=== PATIENT | male | born 1985 | race African-American/Black ===

== ENCOUNTER 2018-01-12 14:18 | Emergency (ER) | payer OTHER ==
[~2018-01-12] VITALS: Ht 188 cm; Wt 98.0 kg
[2018-01-12] MEDS ORDERED: ONDANSETRON HCL 4 MG ORAL DISINTEGRATING TAB SL ONE (14:45)
[2018-01-12] MEDS ORDERED: OMEPRAZOLE40 MG PO (15:33)
[2018-01-12] MEDS ORDERED: LOSARTAN-HCTZ1 EAC1 PO (15:33)
[2018-01-12] MEDS ORDERED: ZOFRAN ODT4 MG SL (15:33)
[2018-01-12] MEDS ORDERED: SIMETHICONE80 MG PO (15:34)
[2018-01-12 15:45] VITALS: BP 198/116
== END 2018-01-12 15:47 | disposition home or self-care (01) ==
LOC: FSED 14:18
DX: K52.29 Other allergic and dietetic gastroenteritis and colitis (principal); K21.9 Gastro-esophageal reflux disease without esophagitis; I10 Essential (primary) hypertension; D64.0 Hereditary sideroblastic anemia; D50.9 Iron deficiency anemia, unspecified; D62 Acute posthemorrhagic anemia
CPT/HCPCS: 80053; 85025; 99283

== ENCOUNTER 2018-03-11 20:01 | Emergency (ER) | payer OTHER ==
[~2018-03-11] VITALS: Ht 188 cm; Wt 99.8 kg
[~2018-03-11 20:01] MED LIST: LOSARTAN-HCTZ1 EAC1 PO; OMEPRAZOLE40 MG PO; SIMETHICONE80 MG PO; ZOFRAN ODT4 MG SL
--- OUTSIDE RECORDS SUMMARY | 2018-03-11 20:04 | XMS REPORT | Clinical Summary ---
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 Disp. Refills Start End Date Status Date orphenadrine (NORFLEX) Take 1 tablet (100 mg 30 tablet 0 08/16/19 Active 100 mg 12 hr tablet total) by mouth 2 (two) 17 times a day as needed for muscle spasms for up to 30 doses. Active Problems Not on file Social History Tobacco Use Types Packs/Day Years Used Date Never Smoker Alcohol Use Drinks/Week oz/Week Comments Yes 6 days/wk// occasional Sex Assigned at Date Recorded Not on file Last Filed Vital Signs Not on file Plan of Treatment Health Maintenance Due Date Last Done Comments INFLUENZA VACCINE 12/02/2017 Results Not on fileafter 03/10/2017 Insurance Payer Benefit Subscriber ID Type Phone Address Plan / Group UHC MEDICAID [employer] xxxxxxxxx HMO COMM [employer]+ [facility] MEDICAID MEDICAID xxxxxxxxx Medicaid MASON MCNALLY Third Self 1985 Home: [address] [place], [place] Liability [id number]
--- OUTSIDE RECORDS SUMMARY | 2018-03-11 20:04 | XMS REPORT | Clinical Summary ---
Author Author JESSY 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 Active traMADol (ULTRAM) 50 mg Take 1 tablet 15 tablet 0 tablet (50 mg total) 7 by mouth every 8 (eight) hours as needed for Pain. Max Daily Amount: 150 mg 09/08/2017 esomeprazole (NEXIUM) 40 Take 1 30 capsule 0 MG capsule capsule (40 7 mg total) by mouth daily. Active Problems Not on file Social History Date Tobacco Use Types Packs/Day Years Used Never Assessed Sex Assigned at Date Recorded Not on file Industry Job Start Date Occupation Not on file Not on file Not on file Travel End Travel History Travel Start No recent travel history available. Last Filed Vital Signs Not on file Plan of Treatment Care Team Description Date Type Specialty Willie Tenorio MD [facility] [address] [address] [phone] 03/16/2018 Office Visit General Surgery Results Not on fileafter 03/10/2017 Insurance Payer Benefit Subscriber ID Type Phone Address Plan / Group MEDICAID - MEDICAID [facility] xxxxxxxxx Medicaid CARE [employer] Contracted PLAN
--- OUTSIDE RECORDS SUMMARY | 2018-03-11 20:05 | XMS REPORT | CCD ---
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 Role Phone Rick Aquino CP Allergies, Adverse Reactions, Alerts Substance Reaction Status NKDA Active Problem List Condition Effective Dates Status Chest pain Active Hypertension Active Medications Medication Instructions Start Date End Date Status morphine Sulfate 4 mg, 2 mL, Route: IVP, Drug form: 09/09/2011 09/09/2011 Completed INJ, ONCE, Priority: STAT, Start date: 09/09/11 13:14:00, Stop date: 09/09/11 13:14:00 ondansetron 4 mg, 2 mL, Route: IVP, Drug form: 09/09/2011 09/09/2011 Completed INJ, ONCE, Priority: STAT, Start date: 09/09/11 13:14:00, Stop date: 09/09/11 13:14:00 NS (Bolus) IV 1,000 1,000 mL, Rate: 1,000 ml/hr, Infuse 09/09/2011 09/09/2011 Completed mL over: 1 hr, Route: IV, Dosing Weight 85.909 kg, Total Volume: 1,000, Priority: STAT, Start date: 09/09/11 12:48:00, Duration: 1 doses or times, Stop date: 09/09/11 13:47:00, Bolus Dose Bolus Dose clonidine 0.1 mg, Route: PO, Drug form: TAB, 09/09/2011 09/09/2011 Completed ONCE, Priority: STAT, Start date: 09/09/11 15:08:00, Stop date: 09/09/11 15:08:00 hydrALAZINE 20 mg, 1 mL, Route: IVP, Drug form: 09/09/2011 09/09/2011 Ordered INJ, ONCE, Priority: STAT, Start date: 09/09/11 15:57:00, Stop date: 09/09/11 15:57:00 clonidine 0.1 mg, Route: PO, Drug form: TAB, 09/09/2011 09/09/2011 Discontinued ONCE, Priority: STAT, Start date: 09/09/11 15:14:00, Stop date: 09/09/11 15:14:00 [place] 5/325 oral 1-2 tab, PO, Q6H, PRN, 30 tab, 09/09/2011 09/14/2011 Ordered tablet Pain, Substitution Allowed, Maintenance Zegerid OTC oral See Instructions, 30 doses or 09/09/2011 Ordered capsule times, Substitution Allowed, Maintenance, PO Daily PO Daily Zantac 150 oral 150 mg, 1 tab, PO, BID, 30 tab, 09/09/2011 Ordered tablet Substitution Allowed Carafate 1 g/10 mL 1 gm, 10 ml, PO, Before Meals & 09/09/2011 Ordered oral suspension Bedtime, 200 ml, Substitution Allowed clonidine 0.1 mg, 1 tab, Route: PO, Drug 09/09/2011 09/09/2011 Completed form: TAB, ONCE, Priority: STAT, Start date: 09/09/11 14:22:00, Stop date: 09/09/11 14:22:00 Carafate 1 g/10 mL 1 gm, 10 mL, Route: PO, Drug form: 09/09/2011 09/09/2011 Completed oral suspension SUSP, ONCE, Start date: 09/09/11 12:29:00, Stop date: 09/09/11 12:29:00 Saline Flush 0.9% 5 ml, Route: IVP, Drug Form: INJ, 09/09/2011 09/09/2011 Discontinued PRN, PRN Line Flush, Start date: 09/09/11 12:29:00, Duration: 30 day, Stop date: 10/09/11 12:28:00 Vital Signs Most recent to oldest [Reference Range]: 1 Height 187.96 cm (09/09/2011 11:27:00) Weight 85.909 kg (09/09/2011 11:27:00) Results CHEMISTRY Most recent to oldest [Reference Range]: 1 Sodium Lvl [135-145 mEq/L] 140 mEq/L (09/09/2011 12:47:00) Potassium Lvl [3.5-5.1 mEq/L] 3.9 mEq/L (09/09/2011 12:47:00) Chloride Lvl [95-109 mEq/L] 105 mEq/L (09/09/2011 12:47:00) CO2 [24-32 mEq/L] 31 mEq/L (09/09/2011 12:47:00) AGAP [10.0-20.0 mEq/L] 7.9 mEq/L *LOW* (09/09/2011 12:47:00) Creatinine Lvl [0.5-1.4 mg/dL] 1.0 mg/dL (09/09/2011 12:47:00) BUN [7-22 mg/dL] 12 mg/dL (09/09/2011 12:47:00) B/C Ratio [6-25] 12 (09/09/2011 12:47:00) Glucose Lvl [70-99 mg/dL] 54 mg/dL 1 *LOW* (09/09/2011 12:47:00) Total Protein [6.4-8.4 g/dL] 8.3 g/dL (09/09/2011 12:47:00) Albumin Lvl [3.5-5.0 g/dL] 4.5 g/dL (09/09/2011 12:47:00) Globulin [2.0-4.0 g/dL] 3.8 g/dL (09/09/2011:47:00) A/G Ratio [0.7-1.6] 1.2 (09/09/2011 12:47:00) Calcium Lvl [8.5-10.5 mg/dL] 9.0 mg/dL (09/09/2011 12:47:00) ALT [0-65 U/L] 26 U/L (09/09/2011 12:47:00) AST [0-37 U/L] 17 U/L (09/09/2011 12:47:00) Alk Phos [39-136 U/L] 47 U/L (09/09/2011 12:47:00) Bili Total [0.2-1.3 mg/dL] 0.6 mg/dL (09/09/2011 12:47:00) Total CK [12-191 U/L] 323 U/L *HI* (09/09/2011 12:47:00) CK MB [0.5-3.6 ng/mL] 1.6 ng/mL (09/09/2011:47:00) CK MB Index [0.0-2.5] 0.5 (09/09/2011:47:00) Troponin-I [0.00-0.40 ng/mL] <0.02 ng/mL (09/09/2011 12:47:00) 1Interpretive Data: Adult reference range values reflect the clinical guidelinesof the [place] [employer]. HEMATOLOGY Most recent to oldest [Reference Range]: 1 WBC [3.7-10.4 K/CMM] 4.9 K/CMM (09/09/2011:47:00) RBC [4.70-6.10 M/CMM] 5.23 M/CMM (09/09/2011 12:47:00) Hgb [14.0-18.0 g/dL] 14.4 g/dL (09/09/2011:47:00) Hct [42.0-54.0 %] 43.4 % (09/09/2011 12:47:00) MCV [80.0-94.0 fL] 83.0 fL (09/09/2011:47:00) MCH [27.0-31.0 pg] 27.5 pg (09/09/2011:47:00) MCHC [32.0-36.0 g/dL] 33.2 g/dL (09/09/2011:47:00) RDW [11.5-14.5 %] 12.5 % (09/09/2011:47:00) Platelet [133-450 K/CMM] 328 K/CMM (09/09/2011:47:00) MPV [7.4-10.4 fL] 7.9 fL (09/09/2011:47:00) Segs [45.0-75.0 %] 57.2 % (09/09/2011:47:00) Lymphocytes [20.0-40.0 %] 31.2 % (09/09/2011:47:00) Monocytes [2.0-12.0 %] 4.7 % (09/09/2011 12:47:00) Eosinophils [0.0-4.0 %] 6.4 % *HI* (09/09/2011 12:47:00) Basophils [0.0-1.0 %] 0.5 % (09/09/2011 12:47:00) Segs-Bands # [1.5-8.1 K/CMM] 2.8 K/CMM (09/09/2011 12:47:00) Lymphocytes # [1.0-5.5 K/CMM] 1.5 K/CMM (09/09/2011 12:47:00) Monocytes # [0.0-0.8 K/CMM] 0.2 K/CMM (09/09/2011 12:47:00) Eosinophils # [0.0-0.5 K/CMM] 0.3 K/CMM (09/09/2011 12:47:00) Basophils # [0.0-0.2 K/CMM] 0.0 K/CMM (09/09/2011 12:47:00) PT [12.0-14.7 seconds] 13.2 seconds (09/09/2011 12:47:00) INR [0.85-1.17] 1.00 2 (09/09/2011 12:47:00) D-Dimer 0.24 ug/mL FEU 3 *NA* (09/09/2011 12:47:00) PTT [22.9-35.8 seconds] 32.7 seconds 4 (09/09/2011 12:47:00) 2Interpretive Data: RECOMMENDED RANGES FOR PROTIME INR: 2.0-3.0 for most medical and surgical thromboembolic states. 2.5-3.5 for artificial heart valves and recurrent embolism.INR SHOULD BE USED ONLY FOR PATIENTS ON STABLE ANTICOAGULANT THERAPY. 3Interpretive Data: In DIC, quantitative D-Dimer is generally greater than 0.66 ug/mL FEU. Values of quantitative D-Dimer less than 0.40 ug/mL FEU have been reported to be associated with a low probability of deep vein thrombosis/pulmonary embolism. This test alone should not be used to rule out DVT/PE. 4Interpretive Data: Heparin Therapeutic Range: 57 - 92 Seconds
--- OUTSIDE RECORDS SUMMARY | 2018-03-11 20:05 | XMS REPORT | Continuity of Care Document ---
Author Author Tobias julita [facility] Interface Address Unknown Phone Unavailable Problems Problem Status Onset Date Classification Date Reported Comments Source CHEST/ BACK PAIN Active 09/14/2017 [facility] FLU LIKE SYMPTOMS Active 09/14/2017 [facility] CHEST PAIN Active 04/15/2014 [facility] [place] ABD PAIN Active 04/09/2014 [place] UNCONTROLLED HYPERTENSION Active 04/09/2014 [facility] HTN URGENCY, CHEST PAIN,ABDOMINAL PAIN Active 09/26/2013 [facility] CHEST PAIN/BLOOD IN STOOL Active 09/09/2011 [facility] 401.0 - MALIGNANT HYPER Active 03/20/2011 [facility] HYPERTENSIVE URGENCY Active 03/16/2011 [facility] Chest pain Active Problem 09/17/2017 [facility] Clostridium difficile<sup>1, 2</sup> Active Problem 09/17/2017 Problem added by Discern Expert. [facility], [place] HTN (<span ID="[id number]</span>) Active Problem 09/17/2017 [facility] [place] Hypertension Active Problem 09/17/2017 [facility] [place] Chest pain Active Problem 09/11/2011 [facility] Hypertension Active Problem 09/11/2011 [facility] HYPERTENSION NOS Active [facility] CHEST PAIN NOS Active [facility] ABDMNAL PAIN UNSPCF SITE Active [facility] Medications Medication Details Route Status Patient Instructions Ordering Provider Order Date Source benzonatate 100 MG Oral Capsule [Tessalon Perles] 100 mg=1 cap, PO, TID, X 7 day, # 21 cap, 0 Refill(s) Active 09/14/2017 [facility] Amlodipine 10 MG / Benazepril hydrochloride 40 MG Oral Capsule [Lotrel 10/40] 1 cap, PO, Daily, # 30 cap, 0 Refill(s) Active 04/10/2014 [facility] tramadol hydrochloride 50 MG Oral Tablet 50 mg=1 tab, PO, Q6H, Pain, # 30 tab, 0 Refill(s) Active 04/10/2014 [place] pantoprazole 40 mg oral enteric coated tablet 40 mg=1 tab, PO, Before Breakfast, # 30 tab, 0 Refill(s) Active 04/10/2014 [place] amLODIPine 10 mg oral tablet 10 mg=1 tab, PO, Daily, # 30 tab, 0 Refill(s) Active 04/10/2014 [place] lisinopril 40 mg oral tablet 40 mg=1 tab, PO, Daily, # 30 tab, 0 Refill(s) Active 04/10/2014 [place] Docusate 100 mg, 1 cap, Route: PO, Drug form: CAP, BID, Dosing Weight 91.818, kg, Start date: 04/10/14 9:00:00, Duration: 30 day, Stop date: 05/09/14 17:00:00Notes: (Same as: Colace) (Do Not Crush) Inactive 04/10/2014 [place] metoprolol extended release 25 mg, 1 tab, Route: PO, Drug form: ERTAB, Daily, Start date: 04/10/14 9:00:00, Duration: 30 day, Stop date: 05/09/14 9:00:00Notes: (Same as: Toprol XL) Do Not Crush Inactive 04/10/2014 [place] Protonix 40 mg, 1 tab, Route: PO, Drug form: ECTAB, Before Breakfast, Dosing Weight 91.818, kg, Start date: 04/10/14 7:30:00, Duration: 30 day, Stop date: 05/09/14 7:30:00Notes: Tablet should not be chewed or crushed. (Same as: Protonix) Inactive 04/10/2014 [place] Saline Flush 0.9% 10 ml, Route: IVP, Drug Form: INJ, Dosing Weight 91.818, kg, PRN, PRN Line Flush, Start date: 04/09/14 17:07:00, Duration: 30 day, Stop date: 05/09/14 17:06:00Notes: (Same as: BD Posiflush) No Longer Active 04/09/2014 [place] Ondansetron 4 mg, 2 mL, Route: IVP, Drug form: INJ, ONCE, Dosing Weight 91.818, kg, PRN Nausea & Vomiting, Start date: 04/09/14 17:07:00Notes: (Same as: Zofran) Inactive 04/09/2014 [facility] Morphine 2 mg, 1 mL, Route: IVP, Drug form: INJ, Q4H, Dosing Weight 91.818, kg, PRN Pain Score 4-6, Start date: 04/09/14 17:07:00, Duration: 30 day, Stop date: 05/09/14 17:06:00Notes: (Same as:MORPhine Sulfate) No Longer Active 04/09/2014 [place] Acetaminophen 325 MG / Hydrocodone Bitartrate 5 MG Oral Tablet 1 tab, Route: PO, Drug Form: TAB, Dosing Weight 91.818, kg, Q4H, PRN Pain Score 1-3, Start date: 04/09/14 17:07:00, Duration: 30 day, Stop date: 05/09/14 17:06:00Notes: (Same as: Monroe 325/5) Do not exceed 4gm/day of acetaminophen. No Longer Active 04/09/2014 [facility] Acetaminophen 650 mg, 2 tab, Route: PO, Drug form: TAB, Q4H, Dosing Weight 91.818, kg, PRN Pain 1-3/Temp > 100.4 F, Start date: 04/09/14 17:07:00, Duration: 30 day, Stop date: 05/09/14 17:06:00Notes: Do not exceed 4 gm/day. (Same as: Tylenol) No Longer Active 04/09/2014 [facility] Lisinopril 40 mg, 2 tab, Route: PO, Drug form: TAB, Daily, Dosing Weight 91.818, kg, Priority: NOW, Start date: 04/09/14 17:05:00, Duration: 30 day, Stop date: 05/09/14 9:00:00Notes: (Same as: Prinivil, Zestril) No Longer Active 04/09/2014 [facility] Amlodipine 10 mg, 2 tab, Route: PO, Drug form: TAB, Daily, Dosing Weight 91.818, kg, Priority: NOW, Start date: 04/09/14 17:04:00, Duration: 30 day, Stop date: 05/09/14 9:00:00Notes: (Same as: Norvasc) No Longer Active 04/09/2014 [place] Clonidine Hydrochloride 0.1 MG Oral Tablet 0.1 mg, 1 tab, Route: PO, Drug form: TAB, Q6H, Dosing Weight 91.818, kg, PRN See Nurse's Notes, Start date: 04/09/14 15:06:00, Duration: 30 day, Stop date: 05/09/14 15:05:00, for SBP>160 or DBP>95Notes: (Same As: Catapres) No Longer Active 04/09/2014 [place] Labetalol 20 mg, 4 mL, Route: IVP, Drug form: INJ, Q6H, Dosing Weight 91.818, kg, PRN See Nurse's Notes, Start date: 04/09/14 15:06:00, Duration: 30 day, Stop date: 05/09/14 15:05:00, for SBP >160 or DBP>95Notes: (Same as: Normodyne, Trandate) Push over 2 minutes Give bolus over 2-3 minutes. No Longer Active 04/09/2014 [place] Acetaminophen 650 mg, 2 tab, Route: PO, Drug form: TAB, Q4H, Dosing Weight 91.818, kg, PRN Pain 1-3/Temp > 100.4 F, Start date: 04/09/14 14:57:00, Duration: 30 day, Stop date: 05/09/14 14:56:00Notes: Do not exceed 4 gm/day. (Same as: Tylenol) No Longer Active 04/09/2014 [place] Sodium Chloride 0.154 MEQ/ML Injectable Solution 500 mL, 500 ml/hr, Infuse Over: 1 hr, Route: IV, ONCE, Priority: STAT, Dosing Weight 91.818 kg, Start date: 04/09/14 13:16:00, Duration: 1 doses or times, Stop date: 04/09/14 13:16:00 Inactive 04/09/2014 [place] Tylenol 1,000 mg, Route: PO, ONCE, Dosing Weight 91.818, kg, Start date: 04/09/14 12:13:00, Stop date: 04/09/14 12:13:00 Inactive 04/09/2014 [place] Hydralazine 20 mg, Route: IVP, ONCE, Dosing Weight 91.818, kg, Priority: STAT, Start date: 04/09/14 11:55:00, Stop date: 04/09/14 11:55:00 Inactive 04/09/2014 [place] Labetalol 20 mg, Route: IVP, Drug form: INJ, ONCE, Dosing Weight 91.818, kg, Priority: STAT, Start date: 04/09/14 10:23:00, Stop date: 04/09/14 10:23:00 Inactive 04/09/2014 [place] Omnipaque 300 150 mL, 600 ml/hr, Route: IV, Drug Form: SOLN, ONCE, Start date: 04/09/14 9:04:00, Stop date: 04/09/14 9:04:00Notes: (Same as:Omnipaque 300). No Longer Active 04/09/2014 [place] Vasotec 1.25 mg, Route: IV, ONCE, Dosing Weight 91.818, kg, Start date: 04/09/14 8:46:00, Stop date: 04/09/14 8:46:00 Inactive 04/09/2014 [place] Hydralazine 20 mg, Route: IVP, ONCE, Dosing Weight 91.818, kg, Priority: STAT, Start date: 04/09/14 7:52:00, Stop date: 04/09/14 7:52:00 Inactive 04/09/2014 [place] Morphine 4 mg, Route: IVP, ONCE, Dosing Weight 91.818, kg, Priority: STAT, Start date: 04/09/14 7:43:00, Stop date: 04/09/14 7:43:00 Inactive 04/09/2014 [place] Ondansetron 4 mg, Route: IVP, ONCE, Dosing Weight 91.818, kg, Priority: STAT, Start date: 04/09/14 7:43:00, Stop date: 04/09/14 7:43:00 Inactive 04/09/2014 [place] Saline Flush 0.9% 10 mL, Route: IVP, Drug Form: INJ, Dosing Weight 91.818, kg, PRN, PRN Line Flush, Start date: 04/09/14 7:43:00, Duration: 30 day, Stop date: 05/09/14 7:42:00Notes: (Same as: BD Posiflush) No Longer Active 04/09/2014 [place] Lisinopril 0 Refill(s) No Longer Active 04/09/2014 [facility] amLODIPine 5 mg oral tablet 10 mg=2 tab, PO, Daily, # 15 tab, 0 Refill(s) Active 09/28/2013 [facility] Aspirin 81 MG Enteric Coated Tablet 81 mg=1 tab, PO, Daily, # 15 tab, 0 Refill(s) Active 09/28/2013 [facility] tramadol hydrochloride 50 MG Oral Tablet [Ultram] 50 mg=1 tab, PO, Q4H, Pain, # 30 tab, 0 Refill(s) Active 09/28/2013 [facility] metoprolol tartrate 25 mg oral tablet 12.5 mg=0.5 tab, PO, Q12H, # 15 tab, 0 Refill(s) Active 09/28/2013 [facility] lisinopril 20 mg oral tablet 40 mg=2 tab, PO, Daily, # 15 tab, 0 Refill(s) Active 09/28/2013 [facility] Lactulose 10 gm, 15 ml, Route: PO, Drug Form: SYRP, Dosing Weight 81.818, kg, Daily, PRN Constipation, Start date: 09/28/13 13:28:00, Duration: 30 day, Stop date: 10/28/13 13:27:00Notes: (Same as:Chronulac) Inactive 09/28/2013 [facility] Prinivil 40 mg, 2 tab, Route: PO, Drug form: TAB, Daily, Start date: 09/28/13 9:00:00, Duration: 30 day, Stop date: 10/27/13 9:00:00Notes: (Same as: Prinivil, Zestril) Inactive 09/28/2013 [facility] Aspirin / Calcium Carbonate 325 mg, 1 tab, Route: PO, Drug form: TAB, Daily, Dosing Weight 81.818, kg, Start date: 09/27/13 19:59:00, Duration: 30 day, Stop date: 10/27/13 9:00:00Notes: Take with food. No Longer Active 09/28/2013 [facility] Ambien 5 mg, 1 tab, Route: PO, Drug form: TAB, Bedtime, Dosing Weight 81.818, kg, PRN as needed for sleep, Start date: 09/27/13 19:51:00, Duration: 30 day, Stop date: 10/27/13 19:50:00Notes: (Same As: Ambien) No Longer Active 09/28/2013 [facility] Senokot 8.6 mg, 1 tab, Route: PO, Drug form: TAB, Daily, Start date: 09/27/13 12:43:00, Duration: 30 day, Stop date: 10/27/13 9:00:00Notes: (Same as: Senokot) No Longer Active 09/27/2013 [facility] Norvasc 10 mg, 2 tab, Route: PO, Drug form: TAB, Daily, Start date: 09/27/13 9:44:00, Duration: 30 day, Stop date: 10/27/13 9:00:00Notes: (Same as: Norvasc) No Longer Active 09/27/2013 [facility] Nicardipine 40 mg, 200 mL, Rate: Titrate, Dosing Weight 81.818, kg, Route: IV, Total Volume: 200 mL, Start Date: 09/27/13 9:18:00, Duration: 30 day, Stop date: 10/27/13 9:17:00, Replace Every: 24 hrNotes: Same a s: Cardene Concentration: (0.2 mg /1 ml ) No Longer Active 09/27/2013 [facility] Amlodipine 10 MG / Benazepril hydrochloride 40 MG Oral Capsule [Lotrel 10/40] 1 cap, Route: PO, Dosing Weight 81.818, kg, Daily, Start date: 09/27/13 9:00:00, Duration: 30 day, Stop date: 10/26/13 9:00:00 Inactive 09/27/2013 [facility] sennosides, INTERMEDIATE 8.6 mg, 1 tab, Route: PO, Drug Form: TAB, Dosing Weight 81.818, kg, Daily, Start date: 09/27/13 9:00:00, Duration: 30 day, Stop date: 10/26/13 9:00:00Notes: (Same as: Senokot) Inactive 09/27/2013 [facility] Docusate Sodium 100 MG Oral Capsule [Colace] 100 mg, 1 cap, Route: PO, Drug form: CAP, BID, Dosing Weight 81.818, kg, Start date: 09/27/13 9:00:00, Duration: 30 day, Stop date: 10/26/13 17:00:00Notes: (Same as: Colace) (Do Not Crush) No Longer Active 09/27/2013 [facility] metoprolol tartrate 12.5 mg, 0.5 tab, Route: PO, Drug form: TAB, Q12H, Dosing Weight 81.818, kg, Start date: 09/27/13 9:00:00, Stop date: 10/26/13 21:00:00Notes: (Same as: Lopressor) No Longer Active 09/27/2013 [facility] tramadol hydrochloride 50 MG Oral Tablet [Ultram] 50 mg, 1 tab, Route: PO, Drug form: TAB, Q4H, Dosing Weight 81.818, kg, PRN Pain, Start date: 09/27/13 8:56:00, Stop date: 10/27/13 8:55:00Notes: Not to exceed 400mg/day. (Same As: Ultram) No Longer Active 09/27/2013 [facility] Morphine 1 mg, 0.5 mL, Route: IV, Drug form: INJ, Q4H, Dosing Weight 81.818, kg, PRN Chest Pain, Start date: 09/27/13 8:56:00, Duration: 30 day, Stop date: 10/27/13 8:55:00Notes: (Same as:MORPhine Sulfate) No Longer Active 09/27/2013 [facility] Zofran 4 mg, 2 mL, Route: IV, Drug form: INJ, Q8H, Dosing Weight 81.818, kg, PRN Nausea, Start date: 09/27/13 8:56:00, Duration: 30 day, Stop date: 10/27/13 8:55:00Notes: (Same as: Zofran) No Longer Active 09/27/2013 [facility] Cardene 40 mg in NS 200 ml IV 40 mg 40 mg, 200 mL, Rate: Titrate, Dosing Weight 81.818, kg, Route: IV, Total Volume: 200 mL, Start Date: 09/27/13 4:03:00, Duration: 30 day, Stop date: 10/27/13 4:02:00, Replace Every: 24 hrNotes: Same as: Cardene Concentration: (0.2 mg /1 ml ) Inactive 09/27/2013 [place] Labetalol 20 mg, 4 mL, Route: IVP, Drug form: INJ, ONCE, Dosing Weight 81.818, kg, Priority: STAT, Start date: 09/27/13 3:43:00, Stop date: 09/27/13 3:43:00Notes: (Same as: Normodyne, Trandate) Push over 2 minutes Give bolus over 2-3 minutes. Inactive 09/27/2013 [place] Clonidine Hydrochloride 0.2 MG Oral Tablet 0.2 mg, Route: PO, Drug form: TAB, ONCE, Dosing Weight 81.818, kg, Priority: STAT, Start date: 09/27/13 2:36:00, Stop date: 09/27/13 2:36:00 Inactive 09/27/2013 [place] Dilaudid 0.5 mg, 0.25 mL, Route: IV, Drug form: INJ, ONCE, Dosing Weight 81.818, kg, Priority: STAT, Start date: 09/27/13 2:08:00, Stop date: 09/27/13 2:08:00Notes: (Same as: Dilaudid) Inactive 09/27/2013 [place] Clonidine Hydrochloride 0.2 MG Oral Tablet 0.2 mg, 2 tab, Route: PO, Drug form: TAB, ONCE, Dosing Weight 81.818, kg, Priority: STAT, Start date: 09/27/13 1:58:00, Stop date: 09/27/13 1:58:00Notes: (Same As: Catapres) Inactive 09/27/2013 [place] Omnipaque 300 100 mL, 100 ml/hr, Route: IV, Drug Form: SOLN, ONCE, Start date: 09/27/13 1:42:00, Stop date: 09/27/13 1:42:00Notes: (Same as:Omnipaque 300). Inactive 09/27/2013 [place] Ativan 1 mg, Route: IVP, Drug form: INJ, ONCE, Dosing Weight 81.818, kg, Priority: STAT, Start date: 09/26/13 23:38:00, Stop date: 09/26/13 23:38:00 Inactive 09/27/2013 [place] Ondansetron 4 mg, 2 mL, Route: IVP, Drug form: INJ, ONCE, Dosing Weight 81.818, kg, Priority: STAT, Start date: 09/26/13 23:16:00, Stop date: 09/26/13 23:16:00Notes: (Same as: Zofran) Inactive 09/27/2013 [facility] pantoprazole 40 mg, Route: IVP, Drug form: INJ, ONCE, Dosing Weight 81.818, kg, For IV push reconstitute with 10 ml 0.9% sodium chloride and push over at least 3 minutes, Priority: STAT, Start date: 09/26/13 23:16:00, Stop date: 09/26/13 23:16:00Notes: For IV push reconstitute with 10 ml 0.9% sodium chloride and push over 2 minutes. (Same as: Protonix) Inactive 09/27/2013 [facility] GI cocktail 30 mL, Route: PO, Drug Form: SUSP, Dosing Weight 81.818, kg, ONCE, STAT, Start date: 09/26/13 23:16:00, Stop date: 09/26/13 23:16:00Notes: G.I. Cocktail=antacid with simethicone 22.5 mL - lidocaine v iscous 7.5 mL Inactive 09/27/2013 [facility] Morphine 4 mg, 2 mL, Route: IVP, Drug form: INJ, ONCE, Dosing Weight 81.818, kg, Priority: STAT, Start date: 09/26/13 23:16:00, Stop date: 09/26/13 23:16:00Notes: (Same as:MORPhine Sulfate) Inactive 09/27/2013 [place] Sodium Chloride 0.154 MEQ/ML Injectable Solution 1,000 mL, 1000 ml/hr, Infuse Over: 1 hr, Route: IV, 1,000, Drug form: INJ, ONCE, Priority: STAT, Dosing Weight 81.818 kg, Start date: 09/26/13 23:16:00, Duration: 1 doses or times, Stop date: 09/26/13 23:16:00 Inactive 09/27/2013 [place] Saline Flush 0.9% 5 mL, Route: IVP, Drug Form: INJ, Dosing Weight 81.818, kg, PRN, PRN Line Flush, Start date: 09/26/13 23:16:00, Duration: 24 hr, Stop date: 09/27/13 23:15:00Notes: (Same as: BD Posiflush) No Longer Active 09/27/2013 [facility] hydrALAZINE 20 mg, 1 mL, Route: IVP, Drug form: INJ, ONCE, Priority: STAT, Start date: 09/09/11 15:57:00, Stop date: 09/09/11 15:57:00 IVP Active [facility] 09/09/2011 [place] clonidine 0.1 mg, Route: PO, Drug form: TAB, ONCE, Priority: STAT, Start date: 09/09/11 15:14:00, Stop date: 09/09/11 15:14:00 PO No Longer Active [facility] 09/09/2011 [place] clonidine 0.1 mg, Route: PO, Drug form: TAB, ONCE, Priority: STAT, Start date: 09/09/11 15:08:00, Stop date: 09/09/11 15:08:00 PO No Longer Active [facility] 09/09/2011 [place] [place] 5/325 oral tablet 1-2 tab, PO, Q6H, PRN, 30 tab, Pain, Substitution Allowed, Maintenance PO Active [facility] 09/09/2011 [place] Zegerid OTC oral capsule See Instructions, 30 doses or times, Substitution Allowed, Maintenance, PO DailyPO Daily Active [facility] 09/09/2011 [place] Zantac 150 oral tablet 150 mg, 1 tab, PO, BID, 30 tab, Substitution Allowed PO Active [facility] 09/09/2011 [place] Carafate 1 g/10 mL oral suspension 1 gm, 10 ml, PO, Before Meals & Bedtime, 200 ml, Substitution Allowed PO Active [facility] 09/09/2011 [place] clonidine 0.1 mg, 1 tab, Route: PO, Drug form: TAB, ONCE, Priority: STAT, Start date: 09/09/11 14:22:00, Stop date: 09/09/11 14:22:00 PO No Longer Active [facility] 09/09/2011 [facility] morphine Sulfate 4 mg, 2 mL, Route: IVP, Drug form: INJ, ONCE, Priority: STAT, Start date: 09/09/11 13:14:00, Stop date: 09/09/11 13:14:00 IVP No Longer Active [facility] 09/09/2011 [place] ondansetron 4 mg, 2 mL, Route: IVP, Drug form: INJ, ONCE, Priority: STAT, Start date: 09/09/11 13:14:00, Stop date: 09/09/11 13:14:00 IVP No Longer Active [facility] 09/09/2011 [place] NS (Bolus) IV 1,000 mL 1,000 mL, Rate: 1,000 ml/hr, Infuse over: 1 hr, Route: IV, Dosing Weight 85.909 kg, Total Volume: 1,000, Priority: STAT, Start date: 09/09/11 12:48:00, Duration: 1 doses or times, Stop date: 09/09/11 13:47:00, Bolus DoseBolus Dose IV No Longer Active [facility] 09/09/2011 [place] Carafate 1 g/10 mL oral suspension 1 gm, 10 mL, Route: PO, Drug form: SUSP, ONCE, Start date: 09/09/11 12:29:00, Stop date: 09/09/11 12:29:00 PO No Longer Active [facility] 09/09/2011 [place] Saline Flush 0.9% 5 ml, Route: IVP, Drug Form: INJ, PRN, PRN Line Flush, Start date: 09/09/11 12:29:00, Duration: 30 day, Stop date: 10/09/11 12:28:00 IVP No Longer Active [facility] 09/09/2011 [place] Norvasc 10 mg, 2 tab, Route: PO, Drug form: TAB, ONCE, Start date: 03/17/11 11:30:00, Stop date: 03/17/11 11:30:00 PO No Longer Active [facility] 03/17/2011 [facility] Prinivil 40 mg, 2 tab, Route: PO, Drug form: TAB, ONCE, Start date: 03/17/11 11:30:00, Stop date: 03/17/11 11:30:00 PO No Longer Active [facility] 03/17/2011 [facility] clonidine 0.1 mg oral tablet 0.1 mg, 1 tab, Route: PO, Drug form: TAB, Q6H, PRN Elevated BP, Start date: 03/17/11 10:58:00, Duration: 30 day, Stop date: 04/16/11 10:57:00 PO No Longer Active [facility] 03/17/2011 [facility] Benicar 20 mg, 1 tab, Route: PO, Drug form: TAB, Daily, Start date: 03/17/11 10:45:00, Duration: 30 day, Stop date: 04/16/11 9:00:00 PO No Longer Active [facility] 03/17/2011 [facility] BD Normal Saline Flush 10 mL, Route: IV, Drug Form: INJ, Q8H, Start date: 03/17/11 8:00:00, Duration: 30 day, Stop date: 04/16/11 0:00:00 IV No Longer Active [facility] 03/17/2011 [facility] nitroglycerin 2% topical ointment 1 inch, Route: TOP, Drug form: OINT, TID, Start date: 03/17/11 6:00:00, Duration: 30 day, Stop date: 04/15/11 18:00:00 TOP No Longer Active [facility] 03/17/2011 [facility] aspirin 325 mg tablet 325 mg, 1 tab, Route: PO, Drug form: TAB, ONCE, Start date: 03/17/11 5:30:00, Stop date: 03/17/11 5:30:00 PO No Longer Active [facility] 03/17/2011 [facility] atropine 1 mg, 10 mL, Route: IVP, Drug form: INJ, Q5Min, PRN Other -See Comment, Start date: 03/17/11 5:15:00, Duration: 30 day, Stop date: 04/16/11 5:14:00 IVP No Longer Active [place] 03/17/2011 [facility] nitroglycerin 0.4 mg sublingual tablet 0.4 mg, 1 tab, Route: SL, Drug form: TAB, PRN, PRN Chest Pain, Start date: 03/17/11 5:15:00, Duration: 30 day, Stop date: 04/16/11 5:14:00 SL No Longer Active [place] 03/17/2011 [facility] epinephrine 1 mg, 10 mL, Route: IVP, Drug form: INJ, Q5Min, PRN Asystole, Start date: 03/17/11 5:15:00, Duration: 30 day, Stop date: 04/16/11 5:14:00 IVP No Longer Active [place] 03/17/2011 [facility] Cordarone 150 mg, 3 mL, Route: IVPB, PRN, PRN See Nurse's Notes, Start date: 03/17/11 5:14:00, Duration: 30 day, Stop date: 04/16/11 5:13:00 IVPB No Longer Active [place] 03/17/2011 [facility] Sodium Chloride 0.9% IV 25 mL, Route: IV, PRN, Line Flush, Start date: 03/17/11 5:12:00, Duration: 30 day, Stop date: 04/16/11 5:11:00 IV No Longer Active [facility] 03/17/2011 [facility] BD Normal Saline Flush 10 mL, Route: IV, Drug Form: INJ, PRN, PRN Line Flush, Start date: 03/17/11 5:12:00, Duration: 30 day, Stop date: 04/16/11 5:11:00 IV No Longer Active [facility] 03/17/2011 [facility] Zofran 4 mg, 2 mL, Route: IV, Drug form: INJ, Q8H, PRN Nausea & Vomiting, Start date: 03/17/11 5:08:00, Duration: 30 day, Stop date: 04/16/11 5:07:00 IV No Longer Active [facility] 03/17/2011 [facility] morphine Sulfate 4 mg, 1 mL, Route: IV, Drug form: INJ, Q2H, PRN Pain Score 7-10, Start date: 03/17/11 5:08:00, Duration: 30 day, Stop date: 04/16/11 5:07:00 IV No Longer Active [facility] 03/17/2011 [facility] Vasotec 2.5 mg, 2 mL, Route: IV, Drug form: INJ, Q6H, PRN Other -See Comment, Start date: 03/17/11 5:07:00, Duration: 30 day, Stop date: 04/16/11 5:06:00 IV No Longer Active [facility] 03/17/2011 [facility] hydrALAZINE 20 mg, 1 mL, Route: IV, Drug form: INJ, Q8H, PRN Elevated BP, Start date: 03/17/11 5:05:00, Duration: 30 day, Stop date: 04/16/11 5:04:00 IV No Longer Active [facility] 03/17/2011 [facility] enalapril 1.25 mg, Route: IVP, ONCE, Priority: STAT, Start date: 03/17/11 2:52:00, Stop date: 03/17/11 2:52:00 IVP No Longer Active [facility] 03/17/2011 [facility] morphine Sulfate 4 mg, Route: IVP, ONCE, Priority: STAT, Start date: 03/17/11 1:33:00, Stop date: 03/17/11 1:33:00 IVP No Longer Active [facility] 03/17/2011 [facility] ondansetron 4 mg, Route: IVP, Drug form: INJ, ONCE, Priority: STAT, Start date: 03/17/11 1:33:00, Stop date: 03/17/11 1:33:00 IVP No Longer Active [facility] 03/17/2011 [facility] hydrALAZINE 10 mg, Route: IVP, ONCE, Priority: STAT, Start date: 03/17/11 1:32:00, Stop date: 03/17/11 1:32:00 IVP No Longer Active [facility] 03/17/2011 [facility] hydrALAZINE 10 mg, Route: IVP, ONCE, Priority: STAT, Start date: 03/17/11 1:07:00, Stop date: 03/17/11 1:07:00 IVP No Longer Active [facility] 03/17/2011 [facility] nitroglycerin 2% ointment 1 inch, Route: TOP, Drug Form: OINT, ONCE, STAT, Start date: 03/17/11 0:36:00, Stop date: 03/17/11 0:36:00 TOP No Longer Active [facility] 03/17/2011 [facility] Saline Flush 0.9% 5 ml, Route: IVP, Drug Form: INJ, PRN, PRN Line Flush, Start date: 03/17/11 0:11:00, Duration: 30 day, Stop date: 04/16/11 0:10:00 IVP No Longer Active [facility] 03/17/2011 [facility] Allergies, Adverse Reactions, Alerts Substance Category Reaction Severity Reaction type Status Date Reported Comments Source Immunizations Immunization Date Given Site Status Last Updated Comments Source Results Order Name Results Value Reference Range Date Interpretation Comments Source CARDIAC ENZYMES Troponin-I null 0.00 - 0.40 09/14/2017 [facility] CARDIAC ENZYMES Total CK 213 unit/L 12 - 191 09/14/2017 [facility] CARDIAC ENZYMES CK MB 1.0 ng/mL 0.5 - 3.6 09/14/2017 [facility] CARDIAC ENZYMES CK MB Index 0.5 0.0 - 2.5 09/14/2017 [facility] CARDIAC ENZYMES proBNP 88 pg/mL 0 - 125 09/14/2017 [facility] CHEM PANEL Lipase Lvl 143 unit/L 73 - 393 09/14/2017 [facility] CHEM PANEL A/G Ratio 0.8 0.7 - 1.6 09/14/2017 [facility] CHEM PANEL Albumin Lvl 3.9 g/dL 3.5 - 5.0 09/14/2017 [facility] PANEL Total Protein 8.5 g/dL 6.4 - 8.4 09/14/2017 [facility] CHEM PANEL Alk Phos 74 unit/L 39 - 136 09/14/2017 [facility] [facility] CHEM PANEL AST 19 unit/L 0 - 37 09/14/2017 [facility] CHEM PANEL ALT 18 unit/L 0 - 65 09/14/2017 [facility] CHEM PANEL Bili Total 0.5 mg/dL 0.2 - 1.3 09/14/2017 [facility] CHEM PANEL Globulin 4.6 g/dL 2.7 - 4.2 09/14/2017 [facility] CHEM PANEL eGFR 87 mL/min/1.73m2 09/14/2017 Result Comment: The eGFR is calculated using the CKD-EPI formula. In most young, healthy individuals the eGFR will be >90 mL/min/1.73m2. The eGFR declines with age. An eGFR of 60-89 may be normal in some populations, particularly the elderly, for whom the CKD-EPI formula has not been extensively validated. Use of the eGFR is not recommended in the following populations: Individuals with unstable creatinine concentrations, including patients and those with serious co-morbid conditions. Patients with extremes in muscle mass or diet. The data above are obtained from the National Kidney Disease Education Program (NKDEP) which additionally recommends that when the eGFR is used in patients with extremes of body mass index for purposes of drug dosing, the eGFR should be multiplied by the estimated BMI. [facility] CHEM PANEL B/C Ratio 10 6 - 25 09/14/2017 [facility] CHEM PANEL BUN 13 mg/dL 7 - 22 09/14/2017 [facility] CHEM PANEL Creatinine Lvl 1.27 mg/dL 0.50 - 1.40 09/14/2017 [facility] CHEM PANEL Sodium Lvl 139 meq/L 135 - 145 09/14/2017 [facility] CHEM PANEL Potassium Lvl 3.7 meq/L 3.5 - 5.1 09/14/2017 [facility] CHEM PANEL Glucose Lvl 96 mg/dL 70 - 99 09/14/2017 [facility] CHEM PANEL AGAP 9.7 meq/L 10.0 - 20.0 09/14/2017 [facility] CHEM PANEL Calcium Lvl 9.3 mg/dL 8.5 - 10.5 09/14/2017 [facility] CHEM PANEL CO2 29 meq/L 24 - 32 09/14/2017 [facility] CHEM PANEL Chloride Lvl 104 meq/L 95 - 109 09/14/2017 [facility] DRUG SCREEN UDS Note See Note *NA* (09/14/17 3:15 PM) 09/14/2017 [facility] DRUG SCREEN U Amph Scr Negative *NA* (09/14/17 3:15 PM) Negative 09/14/2017 [facility] DRUG SCREEN U Cannab Scr Negative *NA* (09/14/17 3:15 PM) Negative 09/14/2017 [facility] DRUG SCREEN U Benzodia Scr Negative *NA* (09/14/17 3:15 PM) Negative 09/14/2017 [facility] DRUG SCREEN U Tomeka Scr Negative *NA* (09/14/17 3:15 PM) Negative 09/14/2017 [facility] DRUG SCREEN U Cocaine Scr Negative *NA* (09/14/17 3:15 PM) Negative 09/14/2017 [facility] DRUG SCREEN U Opiate Scr Negative *NA* (09/14/17 3:15 PM) Negative 09/14/2017 [facility] DRUG SCREEN U Phencyc Scr Negative *NA* (09/14/17 3:15 PM) Negative 09/14/2017 [facility] [place] MPV 7.4 fL 7.4 - 10.4 09/14/2017 [facility] [place] RDW 13.3 % 11.5 - 14.5 09/14/2017 [facility] [place] MCH 26.2 pg 27.0 - 31.0 09/14/2017 [facility] [place] MCHC 32.3 g/dL 32.0 - 36.0 09/14/2017 [facility] [place] RBC 5.28 M/CMM 4.70 - 6.10 09/14/2017 [facility] [place] MCV 81.1 fL 80.0 - 94.0 09/14/2017 [facility] [place] Platelet 339 K/CMM 133 - 450 09/14/2017 [facility] [place] Hgb 13.8 g/dL 14.0 - 18.0 09/14/2017 [facility] [place] Hct 42.8 % 42.0 - 54.0 09/14/2017 [facility] [place] WBC 8.2 K/CMM 3.7 - 10.4 09/14/2017 [facility] [place] Lymphocytes # 1.5 K/CMM 1.0 - 5.5 09/14/2017 [facility] [place] Segs-Bands # 5.8 K/CMM 1.5 - 8.1 09/14/2017 [facility] [place] Lymphocytes 18.5 % 20.0 - 40.0 09/14/2017 [facility] [place] Basophils # 0.1 K/CMM 0.0 - 0.2 09/14/2017 [facility] [place] Eosinophils # 0.2 K/CMM 0.0 - 0.5 09/14/2017 [facility] [place] Monocytes # 0.6 K/CMM 0.0 - 0.8 09/14/2017 [facility] [place] Basophils 0.8 % 0.0 - 1.0 09/14/2017 [facility] [place] Eosinophils 2.2 % 0.0 - 4.0 09/14/2017 [facility] [place] Monocytes 7.8 % 2.0 - 12.0 09/14/2017 [facility] [place] Segs 70.7 % 45.0 - 75.0 09/14/2017 [facility] URINE AND STOOL UA Bili Negative *NA* (09/14/17 3:15 PM) Negative 09/14/2017 [facility] URINE AND STOOL UA Blood Negative (09/14/17 3:15 PM) Negative 09/14/2017 [facility] URINE AND STOOL UA Leuk Est Negative (09/14/17 3:15 PM) Negative 09/14/2017 [facility] URINE AND STOOL UA WBC 0-2 /HPF None Seen /HPF 09/14/2017 [facility] URINE AND STOOL UA Sq Epi None Seen (09/14/17 3:15 PM) Few 09/14/2017 [facility] URINE AND STOOL UA Urobilinogen 0.2 EU/dL 0.1 - 1.0 09/14/2017 [facility] URINE AND STOOL UA Nitrite Negative (09/14/17 3:15 PM) Negative 09/14/2017 [facility] URINE AND STOOL UA Protein Trace *ABN* (09/14/17 3:15 PM) Negative 09/14/2017 [facility] URINE AND STOOL UA Glucose Negative (09/14/17 3:15 PM) Negative 09/14/2017 [facility] URINE AND STOOL UA Ketones Trace *ABN* (09/14/17 3:15 PM) Negative 09/14/2017 [facility] URINE AND STOOL UA pH 6.0 5.0 - 8.0 09/14/2017 [facility] URINE AND STOOL UA Spec Grav >=1.030 *ABN* (09/14/17 3:15 PM) <=1.030 09/14/2017 [facility] URINE AND STOOL UA Color Yellow *NA* (09/14/17 3:15 PM) Yellow 09/14/2017 [facility] URINE AND STOOL UA Turbidity Clear (09/14/17 3:15 PM) Clear 09/14/2017 [facility] Chest 1view DX Chest 1view DX Chest 1view DX 09/14/2017 3:07 PM CDT Ordering Physician: Kimo Johnson MD CLINICAL HISTORY: - cough, c/o right sided lower back pain (flank) with cough and dizziness x3 days; denies n/v unknown if have fever at but states he "sweats a lot lately"; [facility] htn compliant with medication but has not taken it today because "I haven't been feeling good"; TECHNIQUE: A single AP view of the chest was obtained. COMPARISON: 09/26/2013. FINDINGS: No focal consolidation or pleural effusion is seen. No radiographically detectable pneumothorax is present. Significant enlargement of the cardiac silhouette is noted. No acute osseous abnormality is evident. IMPRESSION: 1. Significant enlargement of the cardiac shadow, indicating cardiomegaly or pericardial effusion. SL: [id number] 09/14/2017 - - Read by: Sean Singleton MD Dictated Date/time: 09/14/17 15:31 Electronically Signed by: Sean Singleton MD 09/14/17 15:32 FINAL REPORT [facility] MOLECULAR DIAGNOSTIC C difficile DNA Positive 8, 9 *ABN* (04/10/14 10:30 AM) Negative 04/10/2014 9Interpretive Data: [employer] Clostridium difficile assay utilizes loop-mediated isothermal DNA amplification (LAMP) technology to detect a 204 bp region of the tcdA gene within the PaLoc gene segment present in all known toxigenic C. difficile strains. The assay utilizes FDA cleared IVD reagents. Performance characteristics have been verified by the [facility] within the [facility]. The [facility] is authorized under the Clinical Laboratory Improvement Amendment of 1988 (CLIA-88) to perform high complexity testing. [place] CHEM PANEL Creatinine Lvl 1.2 mg/dL 0.5 - 1.4 04/10/2014 [facility] CHEM PANEL BUN 12 mg/dL 7 - 22 04/10/2014 [facility] CHEM PANEL AGAP 12.9 meq/L 10.0 - 20.0 04/10/2014 [facility] CHEM PANEL Calcium Lvl 9.0 mg/dL 8.5 - 10.5 04/10/2014 [facility] CHEM PANEL Potassium Lvl 3.9 meq/L 3.5 - 5.1 04/10/2014 [facility] CHEM PANEL Chloride Lvl 105 meq/L 95 - 109 04/10/2014 [facility] CHEM PANEL CO2 25 meq/L 24 - 32 04/10/2014 [facility] CHEM PANEL Sodium Lvl 139 meq/L 135 - 145 04/10/2014 [facility] CHEM PANEL Glucose Lvl 105 mg/dL 70 - 99 04/10/2014 3Interpretive Data: Adult reference range values reflect the clinical guidelines of the [place] [employer]. [facility] CHEM PANEL eGFR 95 mL/min/1.73m2 04/10/2014 1Result Comment: The eGFR is calculated using the CKD-EPI formula. In most young, healthy individuals the eGFR will be >90 mL/min/1.73m2. The eGFR declines with age. An eGFR of 60-89 may be normal in some populations, particularly the elderly, for whom the CKD-EPI formula has not been extensively validated. Use of the eGFR is not recommended in the following populations: Individuals with unstable creatinine concentrations, including patients and those with serious co-morbid conditions. Patients with extremes in muscle mass or diet. The data above are obtained from the National Kidney Disease Education Program (NKDEP) which additionally recommends that when the eGFR is used in patients with extremes of body mass index for purposes of drug dosing, the eGFR should be multiplied by the estimated BMI. [facility] SPECIAL CHEMISTRY Hgb A1C 4.8 % <=5.6 % 04/10/2014 [facility] DRUG SCREEN U Amph Scr Negative *NA* (04/09/14 10:15 AM) Negative 04/09/2014 [place] DRUG SCREEN U Tomeka Scr Negative *NA* (04/09/14 10:15 AM) Negative 04/09/2014 [facility] DRUG SCREEN U Benzodia Scr Negative *NA* (04/09/14 10:15 AM) Negative 04/09/2014 [facility] DRUG SCREEN U Cocaine Scr Negative *NA* (04/09/14 10:15 AM) Negative 04/09/2014 [facility] DRUG SCREEN U Cannab Scr Negative *NA* (04/09/14 10:15 AM) Negative 04/09/2014 [facility] DRUG SCREEN U Opiate Scr Positive *ABN* (04/09/14 10:15 AM) Negative 04/09/2014 [facility] DRUG SCREEN UDS Note See Note 5 (04/09/14 10:15 AM) 04/09/2014 5Interpretive Data: Drugs reported as positive have not been confirmed by a second method and should be used for medical purposes only. To order confirmation, contact laboratory. note: Below are cut-off concentrations for all urine drugs of abuse performed in the laboratory. Some drugs listed in the table may not be included in this panel. Description Cut-off concentration Amphetamine 1000 ng/mL Barbiturates 200 ng/mL Benzodiazepines 300 ng/mL Cocaine metabolites 300 ng/mL Opiates 300 ng/mL Phencyclidine 25 ng/mL Propoxyphene 300 ng/mL Marijuana metabolites 50 ng/mL Methadone 300 ng/mL Urine alcohol 20 mg/dL [facility] DRUG SCREEN U Phencyc Scr Negative *NA* (04/09/14 10:15 AM) Negative 04/09/2014 [facility] URINE AND STOOL UA WBC 0-2 /HPF None Seen /HPF 04/09/2014 [facility] URINE AND STOOL UA RBC 0-2 /HPF 0 - 2 04/09/2014 [facility] URINE AND STOOL UA Bacteria Occasional /HPF None Seen /HPF 04/09/2014 [facility] URINE AND STOOL UA Sq Epi Few /LPF Few /LPF 04/09/2014 [facility] URINE AND STOOL UA pH 6.5 5.0 - 8.0 04/09/2014 [facility] URINE AND STOOL UA Protein Negative mg/dL Negative mg/dL 04/09/2014 [facility] URINE AND STOOL UA Glucose Negative mg/dL Negative mg/dL 04/09/2014 [facility] URINE AND STOOL UA Spec Grav 1.010 <=1.030 04/09/2014 [facility] URINE AND STOOL UA Turbidity Clear (04/09/14 10:15 AM) Clear 04/09/2014 [facility] URINE AND STOOL UA Bili Negative *NA* (04/09/14 10:15 AM) Negative 04/09/2014 [facility] URINE AND STOOL UA Blood Negative (04/09/14 10:15 AM) Negative 04/09/2014 [facility] URINE AND STOOL UA Nitrite Negative (04/09/14 10:15 AM) Negative 04/09/2014 [facility] URINE AND STOOL UA Leuk Est Negative (04/09/14 10:15 AM) Negative 04/09/2014 [facility] URINE AND STOOL UA Ketones Negative mg/dL Negative mg/dL 04/09/2014 [facility] URINE AND STOOL UA Color Yellow *NA* (04/09/14 10:15 AM) Yellow 04/09/2014 [place] URINE AND STOOL UA Urobilinogen 0.2 EU/dL 0.1 - 1.0 04/09/2014 [facility] CARDIAC ENZYMES CK MB Index 0.6 0.0 - 2.5 04/09/2014 [facility] CARDIAC ENZYMES Total CK 219 unit/L 12 - 191 04/09/2014 [facility] CARDIAC ENZYMES CK MB 1.3 ng/mL 0.5 - 3.6 04/09/2014 [facility] CARDIAC ENZYMES Troponin-I null 0.00 - 0.40 04/09/2014 [place] CHEM PANEL eGFR 106 mL/min/1.73m2 04/09/2014 2Result Comment: The eGFR is calculated using the CKD-EPI formula. In most young, healthy individuals the eGFR will be >90 mL/min/1.73m2. The eGFR declines with age. An eGFR of 60-89 may be normal in some populations, particularly the elderly, for whom the CKD-EPI formula has not been extensively validated. Use of the eGFR is not recommended in the following populations: Individuals with unstable creatinine concentrations, including patients and those with serious co-morbid conditions. Patients with extremes in muscle mass or diet. The data above are obtained from the National Kidney Disease Education Program (NKDEP) which additionally recommends that when the eGFR is used in patients with extremes of body mass index for purposes of drug dosing, the eGFR should be multiplied by the estimated BMI. [place] CHEM PANEL Globulin 3.9 g/dL 2.0 - 4.0 04/09/2014 [facility] CHEM PANEL A/G Ratio 1.1 0.7 - 1.6 04/09/2014 [place] CHEM PANEL Alk Phos 51 unit/L 39 - 136 04/09/2014 [facility] CHEM PANEL Bili Total 0.6 mg/dL 0.2 - 1.3 04/09/2014 [facility] CHEM PANEL AGAP 12.2 meq/L 10.0 - 20.0 04/09/2014 [facility] CHEM PANEL B/C Ratio 15 6 - 25 04/09/2014 [facility] CHEM PANEL Albumin Lvl 4.3 g/dL 3.5 - 5.0 04/09/2014 [facility] CHEM PANEL AST 25 unit/L 0 - 37 04/09/2014 [facility] CHEM PANEL ALT 40 unit/L 0 - 65 04/09/2014 [facility] CHEM PANEL CO2 25 meq/L 24 - 32 04/09/2014 [facility] CHEM PANEL Total Protein 8.2 g/dL 6.4 - 8.4 04/09/2014 [place] CHEM PANEL Calcium Lvl 9.4 mg/dL 8.5 - 10.5 04/09/2014 [place] CHEM PANEL Sodium Lvl 138 meq/L 135 - 145 04/09/2014 [place] CHEM PANEL Potassium Lvl 4.2 meq/L 3.5 - 5.1 04/09/2014 [place] CHEM PANEL Chloride Lvl 105 meq/L 95 - 109 04/09/2014 [place] CHEM PANEL Glucose Lvl 104 mg/dL 70 - 99 04/09/2014 4Interpretive Data: Adult reference range values reflect the clinical guidelines of the [place] [employer]. [place] CHEM PANEL Creatinine Lvl 1.1 mg/dL 0.5 - 1.4 04/09/2014 [place] CHEM PANEL BUN 16 mg/dL 7 - 22 04/09/2014 [place] CHEM PANEL Amylase Lvl 50 unit/L 25 - 115 04/09/2014 [place] CHEM PANEL Lipase Lvl 126 unit/L 73 - 393 04/09/2014 [facility] HEMATOLOGY Basophils 0.4 % 0.0 - 1.0 04/09/2014 [place] HEMATOLOGY Eosinophils 3.5 % 0.0 - 4.0 04/09/2014 [place] HEMATOLOGY Monocytes # 0.4 K/CMM 0.0 - 0.8 04/09/2014 [facility] HEMATOLOGY Basophils # 0.0 K/CMM 0.0 - 0.2 04/09/2014 [facility] HEMATOLOGY Eosinophils # 0.2 K/CMM 0.0 - 0.5 04/09/2014 [facility] HEMATOLOGY Lymphocytes # 1.1 K/CMM 1.0 - 5.5 04/09/2014 [facility] HEMATOLOGY Segs-Bands # 4.9 K/CMM 1.5 - 8.1 04/09/2014 [facility] HEMATOLOGY Plt Morph Normal (04/09/14 8:00 AM) 04/09/2014 [facility] HEMATOLOGY RBC Morph Normal (04/09/14 8:00 AM) 04/09/2014 [facility] HEMATOLOGY Monocytes 5.8 % 2.0 - 12.0 04/09/2014 [facility] HEMATOLOGY Lymphocytes 17.2 % 20.0 - 40.0 04/09/2014 [facility] HEMATOLOGY Segs 73.1 % 45.0 - 75.0 04/09/2014 [facility] HEMATOLOGY MPV 8.1 fL 7.4 - 10.4 04/09/2014 [facility] HEMATOLOGY Platelet 310 K/CMM 133 - 450 04/09/2014 [facility] HEMATOLOGY MCH 27.2 pg 27.0 - 31.0 04/09/2014 [facility] HEMATOLOGY RDW 12.4 % 11.5 - 14.5 04/09/2014 [facility] HEMATOLOGY MCHC 32.7 g/dL 32.0 - 36.0 04/09/2014 [facility] WBC 6.7 K/CMM 3.7 - 10.4 04/09/2014 [facility] RBC 5.32 M/CMM 4.70 - 6.10 04/09/2014 [facility] Hgb 14.5 g/dL 14.0 - 18.0 04/09/2014 [facility] Hct 44.2 % 42.0 - 54.0 04/09/2014 [facility] MCV 83.2 fL 80.0 - 94.0 04/09/2014 [facility] INR 0.94 0.85 - 1.17 04/09/2014 6Interpretive Data: RECOMMENDED RANGES FOR PROTIME INR: 2.0-3.0 for most medical and surgical thromboembolic states. 2.5-3.5 for artificial heart valves and recurrent embolism. INR SHOULD BE USED ONLY FOR PATIENTS ON STABLE ANTICOAGULANT THERAPY. [facility] PTT 33.0 s 22.9 - 35.8 04/09/2014 7Interpretive Data: Heparin Therapeutic Range: 57 - 92 Seconds [facility] PT 12.5 s 12.0 - 14.7 04/09/2014 [facility] ED Abdomen/Pelvis IV contrast only CT ED Abdomen/Pelvis IV contrast only CT CT ABDOMEN AND PELVIS WITH CONTRAST HISTORY: 29-year-old with hypertension. PROCEDURE: CT scan of the abdomen and pelvis with contrast was done. Creatinine level was 1.1 mg/dl and eGFR was 106 ml/min. Dilute oral and IV contrast, 100 cc Omnipaque 300 used. Postcontrast and delayed series were obtained with coronal and sagittal reformats. The CT dose was 752 mGy/cm. Comparison: 09/27/2013 Abdomen findings: The bases of both lung appear normal. The abdominal aorta has normal caliber at all levels, there is no evidence for dissection or luminal opacity. The iliac arteries to common femoral arteries appear patent and normal. The celiac trunk, both renal arteries SMA, and SOFIE visualized with patency. The liver has normal morphology and homogeneous attenuation.The gallbladder has normal morphology. The pancreas has normal attenuation and dimensions. The spleen has normal volume and expected enhancement. The stomach, duodenum, small bowel, appendiceal region and colon are normal. The appendix is normal. Kidneys in contrast and delayed phase appear normal, no hydronephrosis or lithiasis seen. The adrenals have normal morphology. There is no retroperitoneal adenopathy. Osseous structures,segments of the thoracic and lumbar spine appear normal. Pelvic findings: The urinary bladder is normal. Prostate and seminal vesicles are unremarkable. No pelvic mass or free fluid noted. IMPRESSION: Normal abdominal aorta and its main branches. Normal abdomen and pelvis CT. 04/09/2014 - - Read by: Reno Druan MD Dictated Date/time: 04/09/14 10:22 Electronically Signed by: Reno Duran 04/09/14 10:28 FINAL REPORT [employer] Chest CTA Chest CTA CHEST CTA History: 29-year-old with pain. Technique: Chest CTA was performed. Axial, coronal, sagittal as well as MIP oblique images were obtained. Patient was given 150 cc of omnipaque 300 on post contrast imaging. The creatinine level was 1.1 mg/dl and the estimated GFR was higher than 60 ml/min. The CT dose was 752 mGy/cm. Comparison: Chest x-ray 09/26/2013 Findings: Pleura: Within normal limits, there is no pleural effusion or pneumothorax. Heart: Normal chamber size, no pericardial effusion. Vessels: The thoracic aorta has normal course and morphology. Three vessels originate from the aortic arch. There is no evidence for dissection. The pulmonary artery has normal pattern. MIP images show no deficit or findings to suspect pulmonary thromboembolic disease. Mediastinum: No hilar or mediastinal adenopathy noted. The thyroid left lobe has a 6 mm low-attenuation mass, likely a small cyst. Lung parenchyma: Examination of the lung parenchyma is unremarkable, no nodule infiltrate or calcification seen. Chest wall: The thoracic and part of the lumbar spine visualized are unremarkable. The axillary regions, rib cage and sternum as visualized are normal. Upper abdomen: Structures visualized are normal. IMPRESSION: There is no evidence for thoracic aortic disease and no pulmonary thromboembolic disease. Unremarkable CT examination of the chest. 04/09/2014 - - Read by: Reno Duran MD Dictated Date/time: 04/09/14 10:29 Electronically Signed by: Reno Duran 04/09/14 10:38 FINAL REPORT [employer] CHEM PANEL Phosphorus 4.1 mg/dL 2.5 - 4.5 09/28/2013 [facility] CHEM PANEL Magnesium Lvl 2.1 mg/dL 1.8 - 2.4 09/28/2013 [facility] ELECTROLYTES AGAP 12.2 meq/L 10.0 - 20.0 09/28/2013 [facility] ELECTROLYTES eGFR 96 mL/min/1.73m2 09/28/2013 1Result Comment: The eGFR is calculated using the CKD-EPI formula. In most young, healthy individuals the eGFR will be >90 mL/min/1.73m2. The eGFR declines with age. An eGFR of 60-89 may be normal in some populations, particularly the elderly, for whom the CKD-EPI formula has not been extensively validated. Use of the eGFR is not recommended in the following populations: Individuals with unstable creatinine concentrations, including patients and those with serious co-morbid conditions. Patients with extremes in muscle mass or diet. The data above are obtained from the National Kidney Disease Education Program (NKDEP) which additionally recommends that when the eGFR is used in patients with extremes of body mass index for purposes of drug dosing, the eGFR should be multiplied by the estimated BMI. [facility] ELECTROLYTES Glucose Lvl 94 mg/dL 70 - 99 09/28/2013 2Interpretive Data: Adult reference range values reflect the clinical guidelines of the [place] [employer]. [facility] ELECTROLYTES BUN 17 mg/dL 7 - 22 09/28/2013 [facility] ELECTROLYTES Potassium Lvl 4.2 meq/L 3.5 - 5.1 09/28/2013 [facility] ELECTROLYTES Creatinine Lvl 1.2 mg/dL 0.5 - 1.4 09/28/2013 [facility] ELECTROLYTES Chloride Lvl 102 meq/L 95 - 109 09/28/2013 [facility] ELECTROLYTES CO2 28 meq/L 24 - 32 09/28/2013 [facility] ELECTROLYTES Calcium Lvl 8.6 mg/dL 8.5 - 10.5 09/28/2013 [facility] ELECTROLYTES Sodium Lvl 138 meq/L 135 - 145 09/28/2013 [facility] HEMATOLOGY Basophils # 0.0 K/CMM 0.0 - 0.2 09/28/2013 [facility] HEMATOLOGY Basophils 0.4 % 0.0 - 1.0 09/28/2013 [facility] HEMATOLOGY Segs-Bands # 2.5 K/CMM 1.5 - 8.1 09/28/2013 [facility] HEMATOLOGY Eosinophils 5.4 % 0.0 - 4.0 09/28/2013 [facility] Lymphocytes # 1.8 K/CMM 1.0 - 5.5 09/28/2013 [facility] Monocytes # 0.6 K/CMM 0.0 - 0.8 09/28/2013 [facility] Eosinophils # 0.3 K/CMM 0.0 - 0.5 09/28/2013 [facility] Lymphocytes 34.5 % 20.0 - 40.0 09/28/2013 [facility] Monocytes 11.0 % 2.0 - 12.0 09/28/2013 [facility] Segs 48.7 % 45.0 - 75.0 09/28/2013 [facility] PTT 32.0 s 22.9 - 35.8 09/28/2013 5Interpretive Data: Heparin Therapeutic Range: 57 - 92 Seconds [facility] RBC 5.01 M/CMM 4.70 - 6.10 09/28/2013 [facility] Hgb 13.4 g/dL 14.0 - 18.0 09/28/2013 [facility] Hct 42.2 % 42.0 - 54.0 09/28/2013 [facility] MCV 84.2 fL 80.0 - 94.0 09/28/2013 [facility] MCH 26.7 pg 27.0 - 31.0 09/28/2013 [facility] Platelet 260 K/CMM 133 - 450 09/28/2013 [facility] MPV 7.9 fL 7.4 - 10.4 09/28/2013 [facility] MCHC 31.7 g/dL 32.0 - 36.0 09/28/2013 [facility] RDW 12.6 % 11.5 - 14.5 09/28/2013 [facility] WBC 5.2 K/CMM 3.7 - 10.4 09/28/2013 [facility] PT 12.8 s 12.0 - 14.7 09/28/2013 [facility] INR 0.97 0.85 - 1.17 09/28/2013 4Interpretive Data: RECOMMENDED RANGES FOR PROTIME INR: 2.0-3.0 for most medical and surgical thromboembolic states. 2.5-3.5 for artificial heart valves and recurrent embolism. INR SHOULD BE USED ONLY FOR PATIENTS ON STABLE ANTICOAGULANT THERAPY. [facility] CARDIAC ENZYMES CK MB Index 0.5 0.0 - 2.5 09/27/2013 [facility] CARDIAC ENZYMES CK MB 1.1 ng/mL 0.5 - 3.6 09/27/2013 [facility] CARDIAC ENZYMES Troponin-I null 0.00 - 0.40 09/27/2013 [facility] CARDIAC ENZYMES Total CK 224 unit/L 12 - 191 09/27/2013 [facility] CARDIAC ENZYMES CK MB Index 0.4 0.0 - 2.5 09/27/2013 [facility] CARDIAC ENZYMES CK MB 1.0 ng/mL 0.5 - 3.6 09/27/2013 [facility] CARDIAC ENZYMES Troponin-I null 0.00 - 0.40 09/27/2013 [facility] CARDIAC ENZYMES Total CK 257 unit/L 12 - 191 09/27/2013 [facility] ENDOCRINOLOGY Cortisol 11.2 ug/dl 3.0 - 23.0 09/27/2013 3Interpretive Data: CORD BLOOD: 5 - 17 ug/dL PREMATURE INFANTS: 26-28 weeks, day 4 1 - 11 ug/dL 31-35 weeks, day 4 2.5 - 9.1 ug/dL FULL TERM INFANTS: 3 days 1.7 - 14 ug/dL 1-7 days 2 - 11 ug/dL 1-12 months 2.8 - 23 ug/dL CHILDREN (1 - 16 years) 3 - 21 ug/dL ADULT RANGE: 8AM 6.0 - 23.0 ug/dL 4PM 3.0 - 16.0 ug/dL [facility] BACTERIAL - SEROLOGY MRSA by PCR Negative 6 (09/27/13 9:00 AM) 09/27/2013 6Interpretive Data: Interpretive Data: The [employer] LightCycler MRSA assay is a qualitative test for the direct detection of nasal colonization with methicillin-resistant Staphylococcus aureus (MRSA) to aid in the prevention and control of MRSA infections in healthcare settings. A positive result does not indicate an infection or require treatment. A negative result does not exclude colonization or infection. The polymerase chain reaction (PCR) assay detects a proprietary sequence indicative of the integration of the SCCmec cassette into the Staphylococcus aureus chromosome, indicating the presence of MRSA DNA. The assay utilizes FDA cleared IVD reagents. Performance characteristics have been verified by the [facility] within the [facility]. The [facility] is authorized under the Clinical Laboratory Improvement Amendment of 1988 (CLIA-88) to perform high complexity testing. [facility] Renal vessels Doppler US Renal vessels Doppler US Renal vessels Doppler US - September 27, 2013 10:25:22 AM . CLINICAL INDICATION: I need this to be a renal artery doppler to evaluate for renal artery stenosis ; Abdominal fullness COMPARISON: Abdominopelvic CT earlier today TECHNIQUE: Grayscale, color Doppler and spectral Doppler imaging of the kidneys was obtained. FINDINGS: Kidneys are qualitatively normal in size,shape and echotexturewithout hydronephrosis or a mass. Main renal arteries have normal velocities. RA:Aorta ratio is normal bilaterally. Right intrarenal resistive indices are 0.60, 0.64, and 0.64 in the superior, mid and inferior kidney, respectively. Left intrarenal resistive indices are 0.57, 0.65, and 0.64 in the superior, mid and inferior kidney, respectively. Bilateral renal veins are patent with normal spectral Doppler waveforms. Bladder is unremarkable. Bilateral ureteral jets are visualized. IMPRESSION: Negative ultrasound of the kidneys. No evidence of renal artery stenosis. SL: 14 09/27/2013 - - Read by: Sarah Knight MD Dictated Date/time: 09/27/13 16:06 Electronically Signed by: Sarah Knight MD 09/27/13 16:09 FINAL REPORT [facility] CARDIAC ENZYMES CK MB Index 0.5 0.0 - 2.5 09/27/2013 [facility] CARDIAC ENZYMES Troponin-I null 0.00 - 0.40 09/27/2013 [facility] CARDIAC ENZYMES Total CK 273 unit/L 12 - 191 09/27/2013 [facility] CARDIAC ENZYMES CK MB 1.3 ng/mL 0.5 - 3.6 09/27/2013 [facility] CHEM PANEL Lipase Lvl 155 unit/L 73 - 393 09/27/2013 [facility] CHEM PANEL eGFR 87 mL/min/1.73m2 09/27/2013 1Result Comment: The eGFR is calculated using the CKD-EPI formula. In most young, healthy individuals the eGFR will be >90 mL/min/1.73m2. The eGFR declines with age. An eGFR of 60-89 may be normal in some populations, particularly the elderly, for whom the CKD-EPI formula has not been extensively validated. Use of the eGFR is not recommended in the following populations: Individuals with unstable creatinine concentrations, including patients and those with serious co-morbid conditions. Patients with extremes in muscle mass or diet. The data above are obtained from the National Kidney Disease Education Program (NKDEP) which additionally recommends that when the eGFR is used in patients with extremes of body mass index for purposes of drug dosing, the eGFR should be multiplied by the estimated BMI. [facility] CHEM PANEL Creatinine Lvl 1.3 mg/dL 0.5 - 1.4 09/27/2013 [facility] CHEM PANEL Glucose Lvl 81 mg/dL 70 - 99 09/27/2013 2Interpretive Data: Adult reference range values reflect the clinical guidelines of the [place] [employer]. [facility] CHEM PANEL BUN 16 mg/dL 7 - 22 09/27/2013 [facility] CHEM PANEL B/C Ratio 12 6 - 25 09/27/2013 [facility] CHEM PANEL Globulin 3.8 g/dL 2.0 - 4.0 09/27/2013 [facility] CHEM PANEL CO2 29 meq/L 24 - 32 09/27/2013 [facility] CHEM PANEL Calcium Lvl 8.9 mg/dL 8.5 - 10.5 09/27/2013 [facility] CHEM PANEL Total Protein 7.9 g/dL 6.4 - 8.4 09/27/2013 [facility] CHEM PANEL Potassium Lvl 3.6 meq/L 3.5 - 5.1 09/27/2013 [facility] CHEM PANEL Sodium Lvl 139 meq/L 135 - 145 09/27/2013 [facility] CHEM PANEL Chloride Lvl 102 meq/L 95 - 109 09/27/2013 [facility] CHEM PANEL Bili Total 0.7 mg/dL 0.2 - 1.3 09/27/2013 [facility] CHEM PANEL Alk Phos 54 unit/L 39 - 136 09/27/2013 [facility] CHEM PANEL AGAP 11.6 meq/L 10.0 - 20.0 09/27/2013 [facility] CHEM PANEL A/G Ratio 1.1 0.7 - 1.6 09/27/2013 [facility] CHEM PANEL ALT 29 unit/L 0 - 65 09/27/2013 [facility] CHEM PANEL Albumin Lvl 4.1 g/dL 3.5 - 5.0 09/27/2013 [facility] CHEM PANEL AST 20 unit/L 0 - 37 09/27/2013 [facility] DRUG SCREEN U Cannab Scr Negative *NA* (09/26/13 11:30 PM) Negative 09/27/2013 [facility] DR[facility] SCREEN U Phencyc Scr Negative *NA* (09/26/13 11:30 PM) Negative 09/27/2013 [facility] DR[facility] SCREEN U Cocaine Scr Negative *NA* (09/26/13 11:30 PM) Negative 09/27/2013 [facility] DRUG SCREEN U Opiate Scr Negative *NA* (09/26/13 11:30 PM) Negative 09/27/2013 [facility] DRUG SCREEN UDS Note See Note 3 *NA* (09/26/13 11:30 PM) 09/27/2013 3Interpretive Data: Drugs reported as positive have not been confirmed by a second method and should be used for medical purposes only. To order confirmation, contact laboratory. note: Below are cut-off concentrations for all urine drugs of abuse performed in the laboratory. Some drugs listed in the table may not be included in this panel. Description Cut-off concentration Amphetamine 1000 ng/mL Barbiturates 200 ng/mL Benzodiazepines 300 ng/mL Cocaine metabolites 300 ng/mL Opiates 300 ng/mL Phencyclidine 25 ng/mL Propoxyphene 300 ng/mL Marijuana metabolites 50 ng/mL Methadone 300 ng/mL Urine alcohol 20 mg/dL [facility] DR[facility] SCREEN U Amph Scr Negative *NA* (09/26/13 11:30 PM) Negative 09/27/2013 [facility] DRUG SCREEN U Benzodia Scr Negative *NA* (09/26/13 11:30 PM) Negative 09/27/2013 [facility] DRUG SCREEN U Tomeka Scr Negative *NA* (09/26/13 11:30 PM) Negative 09/27/2013 [facility] HEMATOLOGY Monocytes 9.4 % 2.0 - 12.0 09/27/2013 [facility] HEMATOLOGY Segs 56.7 % 45.0 - 75.0 09/27/2013 [facility] HEMATOLOGY Lymphocytes 29.6 % 20.0 - 40.0 09/27/2013 [facility] HEMATOLOGY Eosinophils # 0.2 K/CMM 0.0 - 0.5 09/27/2013 [facility] HEMATOLOGY Lymphocytes # 1.7 K/CMM 1.0 - 5.5 09/27/2013 [facility] HEMATOLOGY Monocytes # 0.5 K/CMM 0.0 - 0.8 09/27/2013 [facility] HEMATOLOGY Eosinophils 4.0 % 0.0 - 4.0 09/27/2013 [facility] HEMATOLOGY Basophils 0.3 % 0.0 - 1.0 09/27/2013 [facility] HEMATOLOGY Segs-Bands # 3.3 K/CMM 1.5 - 8.1 09/27/2013 [facility] HEMATOLOGY Basophils # 0.0 K/CMM 0.0 - 0.2 09/27/2013 [facility] HEMATOLOGY MPV 8.3 fL 7.4 - 10.4 09/27/2013 [facility] HEMATOLOGY MCV 82.9 fL 80.0 - 94.0 09/27/2013 [facility] HEMATOLOGY MCH 27.5 pg 27.0 - 31.0 09/27/2013 [facility] HEMATOLOGY RBC 5.50 M/CMM 4.70 - 6.10 09/27/2013 [facility] HEMATOLOGY Hgb 15.1 g/dL 14.0 - 18.0 09/27/2013 [facility] HEMATOLOGY Hct 45.6 % 42.0 - 54.0 09/27/2013 [facility] HEMATOLOGY Platelet 281 K/CMM 133 - 450 09/27/2013 [facility] HEMATOLOGY MCHC 33.2 g/dL 32.0 - 36.0 09/27/2013 [facility] HEMATOLOGY RDW 12.5 % 11.5 - 14.5 09/27/2013 [facility] HEMATOLOGY WBC 5.8 K/CMM 3.7 - 10.4 09/27/2013 [facility] URINE AND STOOL UA Urobilinogen 0.2 EU/dL 0.1 - 1.0 09/27/2013 [facility] URINE AND STOOL UA Blood Trace *ABN* (09/26/13 11:30 PM) Negative 09/27/2013 [facility] URINE AND STOOL UA Color Yellow *NA* (09/26/13 11:30 PM) Yellow 09/27/2013 [facility] URINE AND STOOL UA RBC 0-2 /HPF 0 - 2 09/27/2013 [facility] URINE AND STOOL UA Glucose Negative (09/26/13 11:30 PM) Negative 09/27/2013 [facility] URINE AND STOOL UA Bili Negative *NA* (09/26/13 11:30 PM) Negative 09/27/2013 [facility] URINE AND STOOL UA Ketones Negative *NA* (09/26/13 11:30 PM) Negative 09/27/2013 [facility] URINE AND STOOL UA Leuk Est Negative (09/26/13 11:30 PM) Negative 09/27/2013 [facility] URINE AND STOOL UA Nitrite Negative (09/26/13 11:30 PM) Negative 09/27/2013 [facility] URINE AND STOOL UA WBC 0-2 /HPF None Seen /HPF 09/27/2013 [facility] URINE AND STOOL UA Sq Epi Occasional /LPF Few /LPF 09/27/2013 [facility] URINE AND STOOL UA Mucus Few /LPF None Seen /LPF 09/27/2013 [facility] URINE AND STOOL UA Bacteria Few /HPF None Seen /HPF 09/27/2013 [facility] URINE AND STOOL UA Spec Grav >=1.030 *ABN* (09/26/13 11:30 PM) <=1.030 09/27/2013 [facility] URINE AND STOOL UA Turbidity Clear (09/26/13 11:30 PM) Clear 09/27/2013 [facility] URINE AND STOOL UA Protein Negative (09/26/13 11:30 PM) Negative 09/27/2013 [facility] URINE AND STOOL UA pH 6.0 5.0 - 8.0 09/27/2013 [facility] Brain wo contrast CT Brain wo contrast CT Clinical History : See Clinic Indication , Headache with Dizziness and Giddiness Exam : CT Head without contrast September 27, 2013 02:51:00 AM Comparisons : none. Technique : Volumetric CT acquisition was performed through the brain. Images in the axial, coronal, and sagittal planes were presented for interpretation. Radiation dose : 150 CC OMNI DLP 4287.70 Findings: The soft tissue structures of the face, scalp, and orbits are normal. The globes remain intact. The visualized portions of the paranasal sinuses and mastoid air-cells are clear. The calvarium remains intact . There is no acute intracranial hemorrhage, midline shift, or mass effect. The ventricles are normal in size and the posterior fossa structures are normal in appearance. There is no CT evidence of acute infarction. Impressions: No acute intracranial process. 09/27/2013 - - Read by: Tila Monteiro MD Dictated Date/time: 09/27/13 03:15 Electronically Signed by: Tila Monteiro MD 09/27/13 03:17 FINAL REPORT [facility] Abdomen/Pelvis w IV contrast CT Abdomen/Pelvis w IV contrast CT CLINICAL HISTORY: See Clinic Indication , chest pain EXAM: CT abdomen and pelvis with contrast September 27, 2013 01:49:00 AM COMPARISON: None. TECHNIQUE: Following the administration of intravenous contrast, Volumetric CT acquisition was performed through the abdomen and pelvis. Images in the axial, coronal, and sagittal planes were presented for interpretation. Delayed excretory phase images were also obtained. Radiation dose/contrast: DLP: 1572 mGy-cm FINDINGS: The lung bases are clear. The visualized cardiomediastinal structures within normal limits. Within the upper abdomen, the liver and spleen are normal in size and morphology. The gallbladder is normal in appearance. There is no intra or extrahepatic biliary ductal dilation. The pancreas and adrenal glands are normal in appearance. The kidneys are normal in size bilaterally and the ureters are normal in course and caliber. There are no renal calculi comment distal obstructing stones, or evidence of hydronephrosis/hydroureter. The stomach and small intestines are within normal limits for this exam performed without enteric contrast. The appendix is well-visualized and normal contrast seen on axial image 49. The colon is stool filled and otherwise unremarkable. Within the pelvis, the bladder and rectum are normal. The prostate is age-appropriate. There are no pathologically enlarged inguinal, retroperitoneal, portacaval, or mesenteric lymph nodes. The soft tissue structures of the abdominal wall are normal in appearance. The visualized osseous structures within normal limits for the patient's age. The abdominal aorta and its primary branches are normal in course and caliber. IMPRESSIONS: No acute intra-abdominal process. 09/27/2013 - - Read by: Tila Monteiro MD Dictated Date/time: 09/27/13 02:04 Electronically Signed by: Tila Monteiro MD 09/27/13 02:11 FINAL REPORT [facility] Chest 2 views Chest 2 views Clinical History : See Clinic Indication , Chest pain Exam : PA and lateral views of the chest September 26, 2013 10:53:00 PM Comparisons : PA and lateral views the chest September 09, 2011 Findings : The lungs are clear without focal consolidation or pleural effusion. The heart is normal in size. The mediastinal contours are normal in appearance. The thoracic spine is age appropriate. The shoulders are unremarkable. Limited evaluation of the upper abdomen demonstrates no gross abnormalities. Impressions: No acute cardiopulmonary disease (stable appearing chest). 09/26/2013 - - Read by: Tila Monteiro MD Dictated Date/time: 09/26/13 23:29 Electronically Signed by: Tila Monteiro MD 09/26/13 23:30 FINAL REPORT [facility] CHEMISTRY CK MB Index 0.5 0.0 - 2.5 09/09/2011 Normal [facility] CHEMISTRY Troponin-I null 0.00 - 0.40 09/09/2011 Normal [facility] CHEMISTRY Potassium Lvl 3.9 meq/L 3.5 - 5.1 09/09/2011 Normal [facility] CHEMISTRY Total Protein 8.3 g/dL 6.4 - 8.4 09/09/2011 Normal [facility] CHEMISTRY Chloride Lvl 105 meq/L 95 - 109 09/09/2011 Normal [facility] CHEMISTRY Calcium Lvl 9.0 mg/dL 8.5 - 10.5 09/09/2011 Normal [facility] CHEMISTRY CO2 31 meq/L 24 - 32 09/09/2011 Normal [facility] CHEMISTRY Glucose Lvl 54 mg/dL 70 - 99 09/09/2011 LOW 1Interpretive Data: Adult reference range values reflect the clinical guidelinesof the [place] [employer]. [facility] CHEMISTRY BUN 12 mg/dL 7 - 22 09/09/2011 Normal [facility] CHEMISTRY Creatinine Lvl 1.0 mg/dL 0.5 - 1.4 09/09/2011 Normal [facility] CHEMISTRY Bili Total 0.6 mg/dL 0.2 - 1.3 09/09/2011 Normal [facility] CHEMISTRY Alk Phos 47 U/L 39 - 136 09/09/2011 Normal [facility] CHEMISTRY ALT 26 U/L 0 - 65 09/09/2011 Normal [facility] CHEMISTRY Albumin Lvl 4.5 g/dL 3.5 - 5.0 09/09/2011 Normal [facility] CHEMISTRY Globulin 3.8 g/dL 2.0 - 4.0 09/09/2011 Normal [facility] CHEMISTRY B/C Ratio 12 6 - 25 09/09/2011 Normal [facility] CHEMISTRY A/G Ratio 1.2 0.7 - 1.6 09/09/2011 Normal [facility] CHEMISTRY AGAP 7.9 meq/L 10.0 - 20.0 09/09/2011 LOW [facility] CHEMISTRY AST 17 U/L 0 - 37 09/09/2011 Normal [facility] CHEMISTRY Sodium Lvl 140 meq/L 135 - 145 09/09/2011 Normal [facility] CHEMISTRY Total CK 323 U/L 12 - 191 09/09/2011 HI [facility] CHEMISTRY CK MB 1.6 ng/mL 0.5 - 3.6 09/09/2011 Normal [facility] HEMATOLOGY Lymphocytes # 1.5 K/CMM 1.0 - 5.5 09/09/2011 Normal [facility] HEMATOLOGY Basophils 0.5 % 0.0 - 1.0 09/09/2011 Normal [facility] HEMATOLOGY Segs-Bands # 2.8 K/CMM 1.5 - 8.1 09/09/2011 Normal [facility] HEMATOLOGY Basophils # 0.0 K/CMM 0.0 - 0.2 09/09/2011 Normal [facility] HEMATOLOGY Monocytes # 0.2 K/CMM 0.0 - 0.8 09/09/2011 Normal [facility] HEMATOLOGY Eosinophils # 0.3 K/CMM 0.0 - 0.5 09/09/2011 Normal [facility] HEMATOLOGY Lymphocytes 31.2 % 20.0 - 40.0 09/09/2011 Normal [facility] HEMATOLOGY Eosinophils 6.4 % 0.0 - 4.0 09/09/2011 HI [facility] HEMATOLOGY Segs 57.2 % 45.0 - 75.0 09/09/2011 Normal [facility] HEMATOLOGY Monocytes 4.7 % 2.0 - 12.0 09/09/2011 Normal [facility] HEMATOLOGY D-Dimer 0.24 ug/mL FEU 09/09/2011 NA 3Interpretive Data: In DIC, quantitative D- Dimer is generally greater than 0.66 ug/mL FEU. Values of quantitative D-Dimer less than 0.40 ug/mL FEU have been reported to be associated with a low probabil ity of deep vein thrombosis/pulmonary embolism. This test alone should not be used to rule out DVT/PE. [facility] HEMATOLOGY INR 1.00 0.85 - 1.17 09/09/2011 Normal 2Interpretive Data: RECOMMENDED RANGES FOR PROTIME INR: 2.0-3.0 for most medical and surgical thromboembolic states. 2.5-3.5 for artificial heart valves and recurrent embolism.INR SHOULD BE USED ONLY FOR PATIENTS ON STABLE ANTICOAGULANT THERAPY. [facility] HEMATOLOGY PT 13.2 s 12.0 - 14.7 09/09/2011 Normal [facility] HEMATOLOGY PTT 32.7 s 22.9 - 35.8 09/09/2011 Normal 4Interpretive Data: Heparin Therapeutic Range: 57 - 92 Seconds [facility] HEMATOLOGY MCH 27.5 pg 27.0 - 31.0 09/09/2011 Normal [facility] HEMATOLOGY MCHC 33.2 g/dL 32.0 - 36.0 09/09/2011 Normal [facility] HEMATOLOGY RDW 12.5 % 11.5 - 14.5 09/09/2011 Normal [facility] HEMATOLOGY MCV 83.0 fL 80.0 - 94.0 09/09/2011 Normal [facility] HEMATOLOGY Platelet 328 K/CMM 133 - 450 09/09/2011 Normal [facility] HEMATOLOGY MPV 7.9 fL 7.4 - 10.4 09/09/2011 Normal [facility] HEMATOLOGY Hct 43.4 % 42.0 - 54.0 09/09/2011 Normal [facility] HEMATOLOGY Hgb 14.4 g/dL 14.0 - 18.0 09/09/2011 Normal [facility] HEMATOLOGY WBC 4.9 K/CMM 3.7 - 10.4 09/09/2011 Normal [facility] HEMATOLOGY RBC 5.23 M/CMM 4.70 - 6.10 09/09/2011 Normal [facility] CHEMISTRY HDL 44.0 mg/dL >>=35 03/17/2011 Normal [facility] CHEMISTRY Chol 139.0 mg/dL 120 - 200 03/17/2011 Normal [facility] CHEMISTRY LDL 84.0 mg/dL 0 - 129 03/17/2011 Normal [facility] CHEMISTRY CHD Risk 3.16 4.00 - 7.30 03/17/2011 LOW [facility] CHEMISTRY Trig 55.0 mg/dL 0 - 200 03/17/2011 Normal [facility] CHEMISTRY CK MB Index 0.8 0.0 - 2.5 03/17/2011 Normal [facility] CHEMISTRY Troponin-I null 0.00 - 0.40 03/17/2011 Normal [facility] CHEMISTRY Total CK 264.0 U/L 12 - 191 03/17/2011 HI [facility] CHEMISTRY CK MB 2.0 ng/mL 0.5 - 3.6 03/17/2011 Normal [facility] CHEMISTRY LDL 98.0 mg/dL 0 - 129 03/17/2011 Normal [facility] CHEMISTRY HDL 44.0 mg/dL >>=35 03/17/2011 Normal [facility] CHEMISTRY CHD Risk 3.5 4.00 - 7.30 03/17/2011 LOW [facility] CHEMISTRY Chol 154.0 mg/dL 120 - 200 03/17/2011 Normal [facility] CHEMISTRY Trig 60.0 mg/dL 0 - 200 03/17/2011 Normal [facility] CHEMISTRY T4 Free 0.83 ng/dL 0.76 - 1.46 03/17/2011 Normal [facility] CHEMISTRY T3 Free 3.7 pg/mL 2.18 - 3.98 03/17/2011 Normal [facility] CHEMISTRY TSH 1.56 uIU/mL 0.360 - 3.740 03/17/2011 Normal [facility] CHEMISTRY CK MB Index 0.6 0.0 - 2.5 03/17/2011 Normal [facility] CHEMISTRY Troponin-I null 0.00 - 0.40 03/17/2011 Normal [facility] CHEMISTRY CK MB 1.9 ng/mL 0.5 - 3.6 03/17/2011 Normal [facility] CHEMISTRY Total CK 305.0 U/L 12 - 191 03/17/2011 HI [facility] CHEMISTRY U Benzodia Scr Negative *NA* (03/17/2011 01:50:00) ?? >Negative 03/17/2011 NA [facility] CHEMISTRY U Tomeka Scr Negative *NA* (03/17/2011 01:50:00) ?? >Negative 03/17/2011 NA [facility] CHEMISTRY U Cocaine Scr Negative *NA* (03/17/2011 01:50:00) ?? >Negative 03/17/2011 NA [facility] CHEMISTRY U Amph Scr Negative *NA* (03/17/2011 01:50:00) ?? >Negative 03/17/2011 NA [facility] CHEMISTRY UDS Note See Note 2 *NA* (03/17/2011 01:50:00) ?? 03/17/2011 NA 2Interpretive Data: Drugs reported as positive have not been confirmed by a second method and should be used for medical purposes only. To orderconfirmation, contact laboratory. note: Below are cut-off concentrations for all urine drugs of abuse performed in the laboratory. Some drugs listed in the table may not be included in this panel.Description Cut-off concentration Amphetamine 1000 ng/mLBarbiturates 200 ng/mLBenzodiazepines 300 ng/mLCocaine metabolites 300 ng/mLOpiates 300 ng/mLPhencyclidine 25 ng/mLPropoxyphene 300 ng/mLMarijuana metabolites 50 ng/mLMethadone 300 ng/mLUrine alcohol 20 mg/dL [facility] CHEMISTRY U Cannab Scr Negative *NA* (03/17/2011 01:50:00) ?? >Negative 03/17/2011 [facility] CHEMISTRY U Phencyc Scr Negative *NA* (03/17/2011 01:50:00) ?? >Negative 03/17/2011 [facility] CHEMISTRY U Opiate Scr Negative *NA* (03/17/2011 01:50:00) ?? >Negative 03/17/2011 [facility] URINALYSIS UA Mucus Few /LPF *NA* (03/17/2011 01:50:00) ?? >None Seen 03/17/2011 [facility] URINALYSIS UA Sq Epi None Seen 03/17/2011 [facility] URINALYSIS UA WBC 1.0 /HPF 0 - 5 03/17/2011 Normal [facility] URINALYSIS UA Leuk Est Negative (03/17/2011 01:50:00) ?? >Negative 03/17/2011 Normal [facility] URINALYSIS UA RBC null 0 - 2 03/17/2011 Normal [facility] URINALYSIS UA Nitrite Negative (03/17/2011 01:50:00) ?? >Negative 03/17/2011 Normal [facility] URINALYSIS UA Glucose Negative mg/dL *NA* (03/17/2011 01:50:00) ?? >Negative 03/17/2011 [facility] URINALYSIS UA Bili Negative *NA* (03/17/2011 01:50:00) ?? >Negative 03/17/2011 [facility] URINALYSIS UA Blood Negative (03/17/2011 01:50:00) ?? >Negative 03/17/2011 Normal [facility] URINALYSIS UA Turbidity Clear (03/17/2011 01:50:00) ?? >Clear 03/17/2011 Normal [facility] URINALYSIS UA Urobilinogen 2.0 mg/dL 0.1 - 1.0 03/17/2011 [facility] URINALYSIS UA Spec Grav 1.023 <<=1.030 03/17/2011 Normal [facility] URINALYSIS UA pH 6.5 5.0 - 8.0 03/17/2011 Normal [facility] URINALYSIS UA Ketones Negative mg/dL *NA* (03/17/2011 01:50:00) ?? >Negative 03/17/2011 NA [facility] URINALYSIS UA Color Yellow *NA* (03/17/2011 01:50:00) ?? >Yellow 03/17/2011 NA [facility] URINALYSIS UA Protein Negative mg/dL (03/17/2011 01:50:00) ?? >Negative 03/17/2011 Normal [facility] URINALYSIS UA Bacteria None Seen (03/17/2011 01:50:00) ?? >None Seen 03/17/2011 Normal [facility] URINALYSIS Micro? Performed (03/17/2011 01:50:00) ?? 03/17/2011 Normal [facility] CHEMISTRY Total CK 368.0 U/L 12 - 191 03/17/2011 [facility] CHEMISTRY Troponin-I null 0.00 - 0.40 03/17/2011 Normal [facility] CHEMISTRY CK MB 2.4 ng/mL 0.5 - 3.6 03/17/2011 Normal [facility] CHEMISTRY Creatinine Lvl 1.2 mg/dL 0.5 - 1.4 03/17/2011 Normal [facility] CHEMISTRY BUN 13.0 mg/dL 7 - 22 03/17/2011 Normal [facility] CHEMISTRY Glucose Lvl 99.0 mg/dL 03/17/2011 NA 1Interpretive Data: Reference Ranges : 0 - 7 days : 41 - 90 mg/dL7 days - 150 yrs : 70 - 99 mg/dL (fasting), based on the clinical recommendations of the [place] [employer]. [facility] CHEMISTRY CO2 28.0 meq/L 24 - 32 03/17/2011 Normal [facility] CHEMISTRY Chloride Lvl 103.0 meq/L 95 - 109 03/17/2011 Normal [facility] CHEMISTRY Potassium Lvl 3.8 meq/L 3.5 - 5.1 03/17/2011 Normal [facility] CHEMISTRY Sodium Lvl 139.0 meq/L 135 - 145 03/17/2011 Normal [facility] CHEMISTRY AGAP 11.8 meq/L 10.0 - 20.0 03/17/2011 Normal [facility] CHEMISTRY Calcium Lvl 9.0 mg/dL 8.5 - 10.5 03/17/2011 Normal [facility] CHEMISTRY Magnesium Lvl 1.9 mg/dL 1.8 - 2.4 03/17/2011 Normal [facility] CHEMISTRY Phosphorus 2.8 mg/dL 2.5 - 4.5 03/17/2011 Normal [facility] CHEMISTRY CK MB Index 0.7 0.0 - 2.5 03/17/2011 Normal [facility] HEMATOLOGY RDW 12.3 % 11.5 - 14.5 03/17/2011 Normal [facility] HEMATOLOGY MPV 8.4 fL 7.4 - 10.4 03/17/2011 Normal [facility] HEMATOLOGY Platelet 318.0 K/CMM 133 - 450 03/17/2011 Normal [facility] HEMATOLOGY Hgb 14.0 g/dL 14.0 - 18.0 03/17/2011 Normal [facility] HEMATOLOGY MCHC 32.2 g/dL 32.0 - 36.0 03/17/2011 Normal [facility] HEMATOLOGY MCH 27.3 pg 27.0 - 31.0 03/17/2011 Normal [facility] HEMATOLOGY MCV 84.5 fL 80.0 - 94.0 03/17/2011 Normal [facility] HEMATOLOGY Hct 43.4 % 42.0 - 54.0 03/17/2011 Normal [facility] HEMATOLOGY WBC 7.2 K/CMM 3.7 - 10.4 03/17/2011 Normal [facility] HEMATOLOGY RBC 5.13 M/CMM 4.70 - 6.10 03/17/2011 Normal [facility] HEMATOLOGY PTT 31.3 s 22.9 - 35.8 03/17/2011 Normal 4Interpretive Data: Heparin Therapeutic Range: 57 - 92 Seconds [facility] HEMATOLOGY PT 12.9 s 12.0 - 14.7 03/17/2011 Normal [facility] HEMATOLOGY INR 0.97 0.85 - 1.17 03/17/2011 Normal 3Interpretive Data: RECOMMENDED RANGES FOR PROTIME INR: 2.0-3.0 for most medical and surgical thromboembolic states. 2.5-3.5 for artificial heart valves and recurrent embolism.INR SHOULD BE USED ONLY FOR PATIENTS ON STABLE ANTICOAGULANT THERAPY. [facility] HEMATOLOGY Segs-Bands # 4.0 K/CMM 1.5 - 8.1 03/17/2011 Normal [facility] HEMATOLOGY Lymphocytes # 2.5 K/CMM 1.0 - 5.5 03/17/2011 Normal [facility] HEMATOLOGY Eosinophils # 0.3 K/CMM 0.0 - 0.5 03/17/2011 Normal [facility] HEMATOLOGY Monocytes # 0.4 K/CMM 0.0 - 0.8 03/17/2011 Normal [facility] HEMATOLOGY Basophils # 0.1 K/CMM 0.0 - 0.2 03/17/2011 Normal [facility] HEMATOLOGY Lymphocytes 34.3 % 20.0 - 40.0 03/17/2011 Normal [facility] HEMATOLOGY Eosinophils 4.5 % 0.0 - 4.0 03/17/2011 HI [facility] HEMATOLOGY Segs 54.8 % 45.0 - 75.0 03/17/2011 Normal [facility] HEMATOLOGY Monocytes 5.6 % 2.0 - 12.0 03/17/2011 Normal [facility] HEMATOLOGY Basophils 0.8 % 0.0 - 1.0 03/17/2011 Normal [facility] Vital Signs Vital Sign Value Date Comments Source Respitory Rate 20 09/14/2017 [facility] Systolic (mm Hg) 179 09/14/2017 [facility] Diastolic (mm Hg) 115 09/14/2017 [facility] Heart Rate 71 09/14/2017 [facility] Temperature Oral (F) 98.6 F 09/14/2017 [facility] Respitory Rate 22 09/14/2017 [facility] Systolic (mm Hg) 179 09/14/2017 [facility] Diastolic (mm Hg) 115 09/14/2017 [facility] Systolic (mm Hg) 191 09/14/2017 [facility] Diastolic (mm Hg) 136 09/14/2017 [facility] Heart Rate 85 09/14/2017 [facility] Respitory Rate 22 09/14/2017 [facility] Temperature Oral (F) 98.1 F 09/14/2017 [facility] BMI Calculated 28.31 09/14/2017 [facility] Height 187.96 cm 09/14/2017 [facility] Weight 100 09/14/2017 [facility] Heart Rate 95 09/14/2017 [facility] Temperature Oral (F) 98.6 F 09/14/2017 [facility] Systolic (mm Hg) 210 09/14/2017 [facility] Diastolic (mm Hg) 122 09/14/2017 [facility] Respitory Rate 16 09/14/2017 [facility] Heart Rate 90 09/14/2017 [facility] Heart Rate 63 04/10/2014 [place] Temperature Oral (F) 98.4 F 04/10/2014 [facility] Respitory Rate 16 04/10/2014 [place] Diastolic (mm Hg) 86 04/10/2014 [facility] Systolic (mm Hg) 147 04/10/2014 [facility] Systolic (mm Hg) 138 04/10/2014 [facility] Heart Rate 85 04/10/2014 [facility] Diastolic (mm Hg) 108 04/10/2014 [facility] Temperature Oral (F) 98.4 F 04/10/2014 [facility] Respitory Rate 18 04/10/2014 [facility] Systolic (mm Hg) 140 04/10/2014 [facility] Diastolic (mm Hg) 97 04/10/2014 [facility] Temperature Oral (F) 98.2 F 04/10/2014 [place] Heart Rate 86 04/10/2014 [facility] Respitory Rate 18 04/10/2014 [facility] Height 187.96 cm 04/09/2014 [facility] Weight 91.818 04/09/2014 [facility] BMI Calculated 25.99 04/09/2014 [facility] Weight 91.818 04/09/2014 [facility] BMI Calculated 25.99 04/09/2014 [facility] Height 187.96 cm 04/09/2014 [facility] Systolic (mm Hg) 155 09/28/2013 [facility] Respitory Rate 28 09/28/2013 [facility] Diastolic (mm Hg) 83 09/28/2013 [facility] Systolic (mm Hg) 153 09/28/2013 [facility] Diastolic (mm Hg) 81 09/28/2013 [facility] Respitory Rate 15 09/28/2013 [facility] Systolic (mm Hg) 166 09/28/2013 [facility] Diastolic (mm Hg) 75 09/28/2013 [facility] Respitory Rate 18 09/28/2013 [facility] Weight 81.818 09/27/2013 [facility] BMI Calculated 23.16 09/27/2013 [facility] Height 187.96 cm 09/27/2013 [facility] Heart Rate 88 09/27/2013 [place] Respitory Rate 17 09/27/2013 [facility] Temperature Oral (F) 97.8 F 09/27/2013 [facility] Diastolic (mm Hg) 104 09/27/2013 [facility] Systolic (mm Hg) 150 09/27/2013 [facility] Systolic (mm Hg) 173 09/27/2013 [facility] Heart Rate 82 09/27/2013 [facility] Diastolic (mm Hg) 106 09/27/2013 [facility] Diastolic (mm Hg) 97 09/27/2013 [facility] Systolic (mm Hg) 161 09/27/2013 [facility] Heart Rate 80 09/27/2013 [facility] Temperature Oral (F) 98.2 F 09/27/2013 [facility] Respitory Rate 17 09/27/2013 [facility] Temperature Oral (F) 97.3 F 09/27/2013 [facility] Respitory Rate 18 09/27/2013 [facility] BMI Calculated 23.16 09/27/2013 [facility] Height 187.96 cm 09/27/2013 [place] Weight 81.818 09/27/2013 [place] Weight 85.909 09/09/2011 [place] Height 187.96 cm 09/09/2011 [facility] 80.0 03/17/2011 [facility] Respitory Rate 18.0 03/17/2011 [facility] Temperature Oral (F) 97.6 F 03/17/2011 [facility] Diastolic (mm Hg) 101.0 03/17/2011 [facility] Systolic (mm Hg) 153.0 03/17/2011 [facility] Respitory Rate 18.0 03/17/2011 [facility] Systolic (mm Hg) 144.0 03/17/2011 [facility] Temperature Oral (F) 98.8 F 03/17/2011 [facility] Diastolic (mm Hg) 82.0 03/17/2011 [facility] Heart Rate 63.0 03/17/2011 [facility] Temperature Oral (F) 97.5 F 03/17/2011 [facility] Heart Rate 55.0 03/17/2011 [facility] Systolic (mm Hg) 149.0 03/17/2011 [facility] Respitory Rate 18.0 03/17/2011 [facility] Diastolic (mm Hg) 69.0 03/17/2011 [facility] Height 187.96 cm 03/17/2011 [facility] Height 185.42 cm 03/17/2011 [facility] Weight 86.364 03/17/2011 [facility] Encounters Location Location Details Encounter Type Encounter Number Reason For Visit Attending Provider ADM Date DC Date Status Source [facility] OU [id number] JESSICA ELLIOTT 03/17/2011 03/17/2011 Active [facility] Emergency [id number] CHEST PAIN/BLOOD IN STOOL CAMACHO AQUINO 09/09/2011 09/09/2011 Active [facility] [id number] Marco Cantu 09/27/2013 09/27/2013 [facility] Inpatient [id number] Kalpna Pilar 09/27/2013 09/28/2013 [facility] OBS Observation Patient [id number] Mustaq Jennifer 04/09/2014 04/10/[address] [facility] [place] [place] Emergency [id number] Shay Careyuma 09/14/2017 09/14/2017 [facility] Emergency [id number] Kimo Alex 09/14/2017 09/14/2017 [facility] OD [id number] 401.0 - MALIGNANT HYPER FUENTES RANJAN Cancel CATRINA [facility] Procedures Procedure Code Date Perfomer Comments Source
--- OUTSIDE RECORDS SUMMARY | 2018-03-11 20:05 | XMS REPORT | CCD ---
Author Author Auto Generated Organization 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 Name Role Phone Trevor Sage CP MeirOracio CP ViverosOphelia singh Megan CP Maria Columba CP Unavailable James Marroquin CP [phone] Shellie Grossman CP Unavailable Nae Velázquez CP Unavailable Julia Gonzalez CP Unavailable Nette Maguire CP [phone] Randi Abreu CP Unavailable Umm Sorto CP Unavailable Natasha Galvan CP [phone] Lisbet Gutierrez CP Unavailable Nereyda Burnett CP Unavailable Kyleigh Salamanca CP Unavailable Gary Molina CP Unavailable Leanna Chavez CP Unavailable Rick Garner CP [phone] Haydee Cowart CP Unavailable Uyen Bush CP [phone] Charles Resedniz CP [phone] Juan Luis Haider CP SYSTEM, SYSTEM CP Unavailable Laila Berumen CP Unavailable Odin Dias CP Radha Freed CP Unavailable Payton Donnelly CP Unavailable Coreen Harman CP Unavailable Mushtaq Nunn CP [phone] Karen Eduardo CP [phone] Jasmina Asif CP Unavailable Cruz Mike CP Unavailable Kelli Maurice CP Unavailable Carlotta Hammond CP Unavailable Melvi Nuñez CP Unavailable Jaclyn Maurice CP Unavailable Jo Ann Tate CP Stephenie Pierre CP Unavailable Osvaldo Mari Reeves CP Allergies, Adverse Reactions, Alerts Substance Reaction Status NKDA ?? Active Problem List Condition Effective Dates Status Chest pain ?? Active Hypertension ?? Active Medications Medication Instructions Start Date End Date Status enalapril 1.25 mg, Route: IVP, ONCE, 03/17/2011 03/17/2011 Completed Priority: STAT, Start date: 03/17/11 2:52:00, Stop date: 03/17/11 2:52:00 Norvasc 10 mg, 2 tab, Route: PO, Drug form: 03/17/2011 03/17/2011 Completed TAB, ONCE, Start date: 03/17/11 11:30:00, Stop date: 03/17/11 11:30:00 Saline Flush 0.9% 5 ml, Route: IVP, Drug Form: INJ, 03/17/2011 03/17/2011 Discontinued PRN, PRN Line Flush, Start date: 03/17/11 0:11:00, Duration: 30 day, Stop date: 04/16/11 0:10:00 atropine 1 mg, 10 mL, Route: IVP, Drug form: 03/17/2011 03/17/2011 Discontinued INJ, Q5Min, PRN Other -See Comment, Start date: 03/17/11 5:15:00, Duration: 30 day, Stop date: 04/16/11 5:14:00 nitroglycerin 0.4 mg 0.4 mg, 1 tab, Route: SL, Drug 03/17/2011 03/17/2011 Discontinued sublingual tablet form: TAB, PRN, PRN Chest Pain, Start date: 03/17/11 5:15:00, Duration: 30 day, Stop date: 04/16/11 5:14:00 atropine 0.5 mg, 5 mL, Route: IVP, Drug 03/17/2011 03/17/2011 Discontinued form: INJ, PRN, PRN Bradycardia, Start date: 03/17/11 5:15:00, Duration: 30 day, Stop date: 04/16/11 5:14:00 epinephrine 1 mg, 10 mL, Route: IVP, Drug form: 03/17/2011 03/17/2011 Discontinued INJ, Q5Min, PRN Asystole, Start date: 03/17/11 5:15:00, Duration: 30 day, Stop date: 04/16/11 5:14:00 Cordarone 150 mg, 3 mL, Route: IVPB, PRN, PRN 03/17/2011 03/17/2011 Discontinued See Nurse's Notes, Start date: 03/17/11 5:14:00, Duration: 30 day, Stop date: 04/16/11 5:13:00 BD Normal Saline 10 mL, Route: IV, Drug Form: INJ, 03/17/2011 03/17/2011 Discontinued Flush Q8H, Start date: 03/17/11 8:00:00, Duration: 30 day, Stop date: 04/16/11 0:00:00 Sodium Chloride 0.9% 25 mL, Route: IV, PRN, Line Flush, 03/17/2011 03/17/2011 Discontinued IV Start date: 03/17/11 5:12:00, Duration: 30 day, Stop date: 04/16/11 5:11:00 BD Normal Saline 10 mL, Route: IV, Drug Form: INJ, 03/17/2011 03/17/2011 Discontinued Flush PRN, PRN Line Flush, Start date: 03/17/11 5:12:00, Duration: 30 day, Stop date: 04/16/11 5:11:00 Zofran 4 mg, 2 mL, Route: IV, Drug form: 03/17/2011 03/17/2011 Discontinued INJ, Q8H, PRN Nausea & Vomiting, Start date: 03/17/11 5:08:00, Duration: 30 day, Stop date: 04/16/11 5:07:00 morphine Sulfate 4 mg, 1 mL, Route: IV, Drug form: 03/17/2011 03/17/2011 Discontinued INJ, Q2H, PRN Pain Score 7-10, Start date: 03/17/11 5:08:00, Duration: 30 day, Stop date: 04/16/11 5:07:00 nitroglycerin 2% 1 inch, Route: TOP, Drug form: 03/17/2011 03/17/2011 Discontinued topical ointment OINT, TID, Start date: 03/17/11 6:00:00, Duration: 30 day, Stop date: 04/15/11 18:00:00 Vasotec 2.5 mg, 2 mL, Route: IV, Drug form: 03/17/2011 03/17/2011 Discontinued INJ, Q6H, PRN Other -See Comment, Start date: 03/17/11 5:07:00, Duration: 30 day, Stop date: 04/16/11 5:06:00 nitroglycerin 2% 1 inch, Route: TOP, Drug Form: 03/17/2011 03/17/2011 Completed ointment OINT, ONCE, STAT, Start date: 03/17/11 0:36:00, Stop date: 03/17/11 0:36:00 Benicar 20 mg, 1 tab, Route: PO, Drug form: 03/17/2011 03/17/2011 Discontinued TAB, Daily, Start date: 03/17/11 10:45:00, Duration: 30 day, Stop date: 04/16/11 9:00:00 aspirin 325 mg 325 mg, 1 tab, Route: PO, Drug 03/17/2011 03/17/2011 Completed tablet form: TAB, ONCE, Start date: 03/17/11 5:30:00, Stop date: 03/17/11 5:30:00 hydrALAZINE 20 mg, 1 mL, Route: IV, Drug form: 03/17/2011 03/17/2011 Discontinued INJ, Q8H, PRN Elevated BP, Start date: 03/17/11 5:05:00, Duration: 30 day, Stop date: 04/16/11 5:04:00 hydrALAZINE 10 mg, Route: IVP, ONCE, Priority: 03/17/2011 03/17/2011 Completed STAT, Start date: 03/17/11 1:07:00, Stop date: 03/17/11 1:07:00 clonidine 0.1 mg 0.1 mg, 1 tab, Route: PO, Drug 03/17/2011 03/17/2011 Discontinued oral tablet form: TAB, Q6H, PRN Elevated BP, Start date: 03/17/11 10:58:00, Duration: 30 day, Stop date: 04/16/11 10:57:00 Prinivil 40 mg, 2 tab, Route: PO, Drug form: 03/17/2011 03/17/2011 Completed TAB, ONCE, Start date: 03/17/11 11:30:00, Stop date: 03/17/11 11:30:00 morphine Sulfate 4 mg, Route: IVP, ONCE, Priority: 03/17/2011 03/17/2011 Completed STAT, Start date: 03/17/11 1:33:00, Stop date: 03/17/11 1:33:00 ondansetron 4 mg, Route: IVP, Drug form: INJ, 03/17/2011 03/17/2011 Completed ONCE, Priority: STAT, Start date: 03/17/11 1:33:00, Stop date: 03/17/11 1:33:00 hydrALAZINE 10 mg, Route: IVP, ONCE, Priority: 03/17/2011 03/17/2011 Completed STAT, Start date: 03/17/11 1:32:00, Stop date: 03/17/11 1:32:00 Vital Signs Most recent to oldest [Reference Range]: 1 2 3 Height 187.96 cm (03/17/2011 05:00:00) ?? 185.42 cm (03/16/2011 23:54:00) ? Current Weight 84.261 kg (03/17/2011 05:00:00) ? Temperature Oral [96.4-99.1 DegF] 97.6 DegF (03/17/2011 16:00:00) ?? 98.8 DegF (03/17/2011 12:00:00) ?? 97.5 DegF (03/17/2011 08:00:00) ?? Systolic Blood Pressure [90-140 mmHg] 153 mmHg *HI* (03/17/2011 16:00:00) ?? 144 mmHg *HI* (03/17/2011 12:00:00) ?? 149 mmHg *HI* (03/17/2011 08:00:00) ?? Diastolic Blood Pressure [60-90 mmHg] 101 mmHg *HI* (03/17/2011 16:00:00) ?? 82 mmHg (03/17/2011 12:00:00) ?? 69 mmHg (03/17/2011 08:00:00) ?? Respiratory Rate [14-20 BRMIN] 18 BRMIN (03/17/2011 16:00:00) ?? 18 BRMIN (03/17/2011 12:00:00) ?? 18 BRMIN (03/17/2011 08:00:00) ?? Peripheral Pulse Rate [60-100 bpm] 80 bpm (03/17/2011 16:00:00) ?? 63 bpm (03/17/2011 12:00:00) ?? 55 bpm *LOW* (03/17/2011 08:00:00) ?? Weight 86.364 kg (03/16/2011 23:54:00) ? Results URINALYSIS Most recent to oldest [Reference Range]: 1 2 3 UA Turbidity [>Clear] Clear (03/17/2011 01:50:00) ? UA Color [>Yellow] Yellow *NA* (03/17/2011 01:50:00) ? UA pH [5.0-8.0] 6.5 (03/17/2011 01:50:00) ? UA Spec Grav [<<=1.030] 1.023 (03/17/2011 01:50:00) ? UA Glucose [>Negative mg/dL] Negative mg/dL *NA* (03/17/2011 01:50:00) ? UA Blood [>Negative] Negative (03/17/2011 01:50:00) ? UA Ketones [>Negative mg/dL] Negative mg/dL *NA* (03/17/2011 01:50:00) ? UA Protein [>Negative mg/dL] Negative mg/dL (03/17/2011 01:50:00) ? UA Urobilinogen [0.1-1.0 mg/dL] 2.0 mg/dL *HI* (03/17/2011 01:50:00) ? UA Bili [>Negative] Negative *NA* (03/17/2011 01:50:00) ? UA Leuk Est [>Negative] Negative (03/17/2011 01:50:00) ? UA Nitrite [>Negative] Negative (03/17/2011 01:50:00) ? UA WBC [0-5 /HPF] 1 /HPF (03/17/2011 01:50:00) ? UA RBC [0-2 /HPF] <1 /HPF (03/17/2011 01:50:00) ? UA Bacteria [>None Seen] None Seen (03/17/2011 01:50:00) ? UA Sq Epi None Seen *NA* (03/17/2011 01:50:00) ? UA Mucus [>None Seen /LPF] Few /LPF *NA* (03/17/2011 01:50:00) ? Micro? Performed (03/17/2011 01:50:00) ? CHEMISTRY Most recent to oldest [Reference Range]: 1 2 3 Sodium Lvl [135-145 mEq/L] 139 mEq/L (03/17/2011 00:15:00) ? Potassium Lvl [3.5-5.1 mEq/L] 3.8 mEq/L (03/17/2011 00:15:00) ? Chloride Lvl [95-109 mEq/L] 103 mEq/L (03/17/2011 00:15:00) ? CO2 [24-32 mEq/L] 28 mEq/L (03/17/2011 00:15:00) ? AGAP [10.0-20.0 mEq/L] 11.8 mEq/L (03/17/2011 00:15:00) ? Creatinine Lvl [0.5-1.4 mg/dL] 1.2 mg/dL (03/17/2011 00:15:00) ? BUN [7-22 mg/dL] 13 mg/dL (03/17/2011 00:15:00) ? Glucose Lvl 99 mg/dL 1 *NA* (03/17/2011 00:15:00) ? Calcium Lvl [8.5-10.5 mg/dL] 9.0 mg/dL (03/17/2011 00:15:00) ? Phosphorus [2.5-4.5 mg/dL] 2.8 mg/dL (03/17/2011 00:15:00) ? Magnesium Lvl [1.8-2.4 mg/dL] 1.9 mg/dL (03/17/2011 00:15:00) ? Total CK [12-191 U/L] 264 U/L *HI* (03/17/2011 08:38:00) ?? 305 U/L *HI* (03/17/2011 04:41:00) ?? 368 U/L *HI* (03/17/2011 00:15:00) ?? CK MB [0.5-3.6 ng/mL] 2.0 ng/mL (03/17/2011 08:38:00) ?? 1.9 ng/mL (03/17/2011 04:41:00) ?? 2.4 ng/mL (03/17/2011 00:15:00) ?? CK MB Index [0.0-2.5] 0.8 (03/17/2011 08:38:00) ?? 0.6 (03/17/2011 04:41:00) ?? 0.7 (03/17/2011 00:15:00) ?? Troponin-I [0.00-0.40 ng/mL] <0.02 ng/mL (03/17/2011 08:38:00) ?? <0.02 ng/mL (03/17/2011 04:41:00) ?? <0.02 ng/mL (03/17/2011 00:15:00) ?? CHD Risk [4.00-7.30] 3.16 *LOW* (03/17/2011 08:38:00) ?? 3.50 *LOW* (03/17/2011 08:38:00) ? Chol [120-200 mg/dL] 139 mg/dL (03/17/2011 08:38:00) ?? 154 mg/dL (03/17/2011 08:38:00) ? Trig [0-200 mg/dL] 55 mg/dL (03/17/2011 08:38:00) ?? 60 mg/dL (03/17/2011 08:38:00) ? HDL [>>=35 mg/dL] 44 mg/dL (03/17/2011 08:38:00) ?? 44 mg/dL (03/17/2011 08:38:00) ? LDL [0-129 mg/dL] 84 mg/dL (03/17/2011 08:38:00) ?? 98 mg/dL (03/17/2011 08:38:00) ? T4 Free [0.76-1.46 ng/dL] 0.83 ng/dL (03/17/2011 08:38:00) ? TSH [0.360-3.740 uIU/mL] 1.560 uIU/mL (03/17/2011 08:38:00) ? T3 Free [2.18-3.98 pg/mL] 3.70 pg/mL (03/17/2011 08:38:00) ? U Amph Scr [>Negative] Negative *NA* (03/17/2011 01:50:00) ? U [place] Scr [>Negative] Negative *NA* (03/17/2011 01:50:00) ? U Benzodia Scr [>Negative] Negative *NA* (03/17/2011 01:50:00) ? U Cocaine Scr [>Negative] Negative *NA* (03/17/2011 01:50:00) ? U Opiate Scr [>Negative] Negative *NA* (03/17/2011 01:50:00) ? U Phencyc Scr [>Negative] Negative *NA* (03/17/2011 01:50:00) ? U Cannab Scr [>Negative] Negative *NA* (03/17/2011 01:50:00) ? UDS Note See Note 2 *NA* (03/17/2011 01:50:00) ? 1Interpretive Data: Reference Ranges : 0 - 7 days : 41 - 90 mg/dL7 days - 150 yrs : 70 - 99 mg/dL (fasting), based on the clinical recommendations of the [place] [employer]. 2Interpretive Data: Drugs reported as positive have [...] 50 ng/mLMethadone 300 ng/mLUrine alcohol 20 mg/dL HEMATOLOGY Most recent to oldest [Reference Range]: 1 2 3 WBC [3.7-10.4 K/CMM] 7.2 K/CMM (03/17/2011 00:15:00) ? RBC [4.70-6.10 M/CMM] 5.13 M/CMM (03/17/2011 00:15:00) ? Hgb [14.0-18.0 g/dL] 14.0 g/dL (03/17/2011 00:15:00) ? Hct [42.0-54.0 %] 43.4 % (03/17/2011 00:15:00) ? MCV [80.0-94.0 fL] 84.5 fL (03/17/2011 00:15:00) ? MCH [27.0-31.0 pg] 27.3 pg (03/17/2011 00:15:00) ? MCHC [32.0-36.0 g/dL] 32.2 g/dL (03/17/2011 00:15:00) ? RDW [11.5-14.5 %] 12.3 % (03/17/2011 00:15:00) ? Platelet [133-450 K/CMM] 318 K/CMM (03/17/2011 00:15:00) ? MPV [7.4-10.4 fL] 8.4 fL (03/17/2011 00:15:00) ? Segs [45.0-75.0 %] 54.8 % (03/17/2011 00:15:00) ? Lymphocytes [20.0-40.0 %] 34.3 % (03/17/2011 00:15:00) ? Monocytes [2.0-12.0 %] 5.6 % (03/17/2011 00:15:00) ? Eosinophils [0.0-4.0 %] 4.5 % *HI* (03/17/2011 00:15:00) ? Basophils [0.0-1.0 %] 0.8 % (03/17/2011 00:15:00) ? Segs-Bands # [1.5-8.1 K/CMM] 4.0 K/CMM (03/17/2011 00:15:00) ? Lymphocytes # [1.0-5.5 K/CMM] 2.5 K/CMM (03/17/2011 00:15:00) ? Monocytes # [0.0-0.8 K/CMM] 0.4 K/CMM (03/17/2011 00:15:00) ? Eosinophils # [0.0-0.5 K/CMM] 0.3 K/CMM (03/17/2011 00:15:00) ? Basophils # [0.0-0.2 K/CMM] 0.1 K/CMM (03/17/2011 00:15:00) ? PT [12.0-14.7 seconds] 12.9 seconds (03/17/2011 00:15:00) ? INR [0.85-1.17] 0.97 3 (03/17/2011 00:15:00) ? PTT [22.9-35.8 seconds] 31.3 seconds 4 (03/17/2011 00:15:00) ? 3Interpretive Data: RECOMMENDED RANGES FOR PROTIME INR: 2.0-3.0 for most medical and surgical thromboembolic states. 2.5-3.5 for artificial heart valves and recurrent embolism.INR SHOULD BE USED ONLY FOR PATIENTS ON STABLE ANTICOAGULANT THERAPY. 4Interpretive Data: Heparin Therapeutic Range: 57 - 92 Seconds
--- OUTSIDE RECORDS SUMMARY | 2018-03-11 20:06 | XMS REPORT | Summary of Care ---
Author Organization Unknown Address Unknown Phone Unavailable Encounter PAVEL Oden(ROSHNI) [id number] Date(s): 09/26/13 - 09/27/13 [facility] [address] [address]- [facility] Discharge Disposition: Acute Care Physician Attending: Marco Cantu MD Reason for Visit CHEST PAIN Vital Signs 1 2 3 Most recent to oldest [Reference Range]: 187.96 cm (09/26/13 11:01 PM) Height 97.8 DegF (09/27/13 6:30 AM) 98.2 DegF (09/27/13 3:52 AM) 97.3 DegF (09/27/13 2:00 AM) Temperature Oral [96.4-99.1 DegF] 150 mmHg *HI* (09/27/13 6:30 AM) 173 mmHg *HI* (09/27/13 5:45 AM) 161 mmHg *HI* (09/27/13 5:15 AM) Systolic Blood Pressure [90-140 mmHg] 104 mmHg *HI* (09/27/13 6:30 AM) 106 mmHg *HI* (09/27/13 5:45 AM) 97 mmHg *HI* (09/27/13 5:15 AM) Diastolic Blood Pressure [60-90 mmHg] 17 BRMIN (09/27/13 6:30 AM) 17 BRMIN (09/27/13 2:00 AM) 18 BRMIN (09/27/13 1:00 AM) Respiratory Rate [14-20 BRMIN] 88 bpm (09/27/13 6:30 AM) 82 bpm (09/27/13 5:45 AM) 80 bpm (09/27/13 5:15 AM) Peripheral Pulse Rate [60-100 bpm] 81.818 kg (09/26/13 11:01 PM) Weight 23.16 m2 (09/26/13 11:01 PM) Body Mass Index Problem List Condition Effective Dates Status Health Status Informant Chest Active pain(Confirmed) HTN Active (hypertension)(Confi rmed) Hypertension(Confirm Active ed) Allergies, Adverse Reactions, Alerts Substance Reaction Severity Status NKDA Active Medications Ativan 1 mg, Route: IVP, Drug form: INJ, ONCE, Dosing Weight 81.818, kg, Priority: STAT , Start date: 09/26/13 23:38:00, Stop date: 09/26/13 23:38:00 Start Date: 09/26/13 Stop Date: 09/26/13 Status: Completed Cardene 40 mg in NS 200 ml IV 40 mg 40 mg, 200 mL, Rate: Titrate, Dosing Weight 81.818, kg, Route: IV, Total Volume: 200 mL, Start Date: 09/27/13 4:03:00, Duration: 30 day, Stop date: 10/27/13 4:0 2:00, Replace Every: 24 hr Notes: Same as: CardeneConcentration: (0.2 mg /1 ml ) Start Date: 09/27/13 Stop Date: 09/27/13 Status: Discontinued cloNIDine 0.2 mg oral tablet 0.2 mg, Route: PO, Drug form: TAB, ONCE, Dosing Weight 81.818, kg, Priority: STA T, Start date: 09/27/13 2:36:00, Stop date: 09/27/13 2:36:00 Start Date: 09/27/13 Stop Date: 09/27/13 Status: Completed cloNIDine 0.2 mg oral tablet 0.2 mg, 2 tab, Route: PO, Drug form: TAB, ONCE, Dosing Weight 81.818, kg, Priori ty: STAT, Start date: 09/27/13 1:58:00, Stop date: 09/27/13 1:58:00 Notes: (Same As: Catapres) Start Date: 09/27/13 Stop Date: 09/27/13 Status: Discontinued Dilaudid 0.5 mg, 0.25 mL, Route: IV, Drug form: INJ, ONCE, Dosing Weight 81.818, kg, Prio rity: STAT, Start date: 09/27/13 2:08:00, Stop date: 09/27/13 2:08:00 Notes: (Same as: Dilaudid) Start Date: 09/27/13 Stop Date: 09/27/13 Status: Completed GI cocktail 30 mL, Route: PO, Drug Form: SUSP, Dosing Weight 81.818, kg, ONCE, STAT, Start d ate: 09/26/13 23:16:00, Stop date: 09/26/13 23:16:00 Notes: G.I. Cocktail=antacid with simethicone 22.5 mL - lidocaine viscous 7.5 mL Start Date: 09/26/13 Stop Date: 09/26/13 Status: Completed labetalol 20 mg, 4 mL, Route: IVP, Drug form: INJ, ONCE, Dosing Weight 81.818, kg, Priorit y: STAT, Start date: 09/27/13 3:43:00, Stop date: 09/27/13 3:43:00 Notes: (Same as: Normodyne, Trandate)Push over 2 minutes Give bolus over 2-3 mi nutes. Start Date: 09/27/13 Stop Date: 09/27/13 Status: Completed morphine Sulfate 4 mg, 2 mL, Route: IVP, Drug form: INJ, ONCE, Dosing Weight 81.818, kg, Priority : STAT, Start date: 09/26/13 23:16:00, Stop date: 09/26/13 23:16:00 Notes: (Same as:MORPhine Sulfate) Start Date: 09/26/13 Stop Date: 09/26/13 Status: Completed Omnipaque 300 100 mL, 100 ml/hr, Route: IV, Drug Form: SOLN, ONCE, Start date: 09/27/13 1:42:0 0, Stop date: 09/27/13 1:42:00 Notes: (Same as:Omnipaque 300). Start Date: 09/27/13 Stop Date: 09/27/13 Status: Completed ondansetron 4 mg, 2 mL, Route: IVP, Drug form: INJ, ONCE, Dosing Weight 81.818, kg, Priority : STAT, Start date: 09/26/13 23:16:00, Stop date: 09/26/13 23:16:00 Notes: (Same as: Zofran) Start Date: 09/26/13 Stop Date: 09/26/13 Status: Completed pantoprazole 40 mg, Route: IVP, Drug form: INJ, ONCE, Dosing Weight 81.818, kg, For IV push r econstitute with 10 ml 0.9% sodium chloride and push over at least 3 minutes, Pr iority: STAT, Start date: 09/26/13 23:16:00, Stop date: 09/26/13 23:16:00 Notes: For IV push reconstitute with 10 ml 0.9% sodium chloride and push over 2 minutes. (Same as: Protonix) Start Date: 09/26/13 Stop Date: 09/26/13 Status: Completed Saline Flush 0.9% 5 mL, Route: IVP, Drug Form: INJ, Dosing Weight 81.818, kg, PRN, PRN Line Flush, Start date: 09/26/13 23:16:00, Duration: 24 hr, Stop date: 09/27/13 23:15:00 Notes: (Same as: BD Posiflush) Start Date: 09/26/13 Stop Date: 09/27/13 Status: Discontinued Sodium Chloride 0.9% (Bolus) IV - - 1,000 mL, 1000 ml/hr, Infuse Over: 1 hr, Route: IV, 1,000, Drug form: INJ, ONCE, Priority: STAT, Dosing Weight 81.818 kg, Start date: 09/26/13 23:16:00, Duratio n: 1 doses or times, Stop date: 09/26/13 23:16:00 Start Date: 09/26/13 Stop Date: 09/26/13 Status: Completed Results ELECTROLYTES Most recent to 1 oldest [Reference Range]: Sodium Lvl [135-145 139 mEq/L mEq/L] (09/26/13 11:30 PM) Potassium Lvl 3.6 mEq/L [3.5-5.1 mEq/L] (09/26/13 11:30 PM) Chloride Lvl [95-109 102 mEq/L mEq/L] (09/26/13 11:30 PM) CO2 [24-32 mEq/L] 29 mEq/L (09/26/13 11:30 PM) AGAP [10.0-20.0 11.6 mEq/L mEq/L] (09/26/13 11:30 PM) CHEM PANEL Most recent to 1 oldest [Reference Range]: Creatinine Lvl 1.3 mg/dL [0.5-1.4 mg/dL] (09/26/13 11:30 PM) eGFR 87 mL/min/1.73m2 1 *NA* (09/26/13 11:30 PM) BUN [7-22 mg/dL] 16 mg/dL (09/26/13 11:30 PM) B/C Ratio [6-25] 12 (09/26/13 11:30 PM) Glucose Lvl [70-99 81 mg/dL 2 mg/dL] (09/26/13 11:30 PM) Total Protein 7.9 g/dL [6.4-8.4 g/dL] (09/26/13 11:30 PM) Albumin Lvl [3.5-5.0 4.1 g/dL g/dL] (09/26/13 11:30 PM) Globulin [2.0-4.0 3.8 g/dL g/dL] (09/26/13 11:30 PM) A/G Ratio [0.7-1.6] 1.1 (09/26/13 11:30 PM) Calcium Lvl 8.9 mg/dL [8.5-10.5 mg/dL] (09/26/13 11:30 PM) ALT [0-65 unit/L] 29 unit/L (09/26/13 11:30 PM) AST [0-37 unit/L] 20 unit/L (09/26/13 11:30 PM) Alk Phos [39-136 54 unit/L unit/L] (09/26/13 11:30 PM) Bili Total [0.2-1.3 0.7 mg/dL mg/dL] (09/26/13 11:30 PM) Lipase Lvl [73-393 155 unit/L unit/L] (09/26/13 11:30 PM) 1Result Comment: The eGFR is calculated using [...] from the National Kidney Disease Education Program ( NKDEP) which additionally recommends that when the eGFR is used in patients with extremes of body mass index for purposes of drug dosing, the eGFR should be mul tiplied by the estimated BMI. 2Interpretive Data: Adult reference range values reflect the clinical guidelines of the [place] [employer]. CARDIAC ENZYMES Most recent to 1 oldest [Reference Range]: Total CK [12-191 273 unit/L unit/L] *HI* (09/26/13 11:30 PM) CK MB [0.5-3.6 1.3 ng/mL ng/mL] (09/26/13 11:30 PM) CK MB Index 0.5 [0.0-2.5] (09/26/13 11:30 PM) Troponin-I <0.02 ng/mL [0.00-0.40 ng/mL] (09/26/13 11:30 PM) DRUG SCREEN Most recent to 1 oldest [Reference Range]: U Amph Scr Negative [Negative] *NA* (09/26/13 11:30 PM) U Tomeka Scr Negative [Negative] *NA* (09/26/13 11:30 PM) U Benzodia Scr Negative [Negative] *NA* (09/26/13 11:30 PM) U Cocaine Scr Negative [Negative] *NA* (09/26/13 11:30 PM) U Opiate Scr Negative [Negative] *NA* (09/26/13 11:30 PM) U Phencyc Scr Negative [Negative] *NA* (09/26/13 11:30 PM) U Cannab Scr Negative [Negative] *NA* (09/26/13 11:30 PM) UDS Note See Note 3 *NA* (09/26/13 11:30 PM) 3Interpretive Data: Drugs reported as positive have [...] Methadone 300 ng/mL Urine alcohol 20 mg/dL URINE AND STOOL Most recent to 1 oldest [Reference Range]: UA Turbidity [Clear] Clear (09/26/13 11:30 PM) UA Color [Yellow] Yellow *NA* (09/26/13 11:30 PM) UA pH [5.0-8.0] 6.0 (09/26/13 11:30 PM) UA Spec Grav >=1.030 [<=1.030] *ABN* (09/26/13 11:30 PM) UA Glucose Negative [Negative] (09/26/13 11:30 PM) UA Blood [Negative] Trace *ABN* (09/26/13 11:30 PM) UA Ketones Negative [Negative] *NA* (09/26/13 11:30 PM) UA Protein Negative [Negative] (09/26/13 11:30 PM) UA Urobilinogen 0.2 EU/dL [0.1-1.0 EU/dL] (09/26/13 11:30 PM) UA Bili [Negative] Negative *NA* (09/26/13 11:30 PM) UA Leuk Est Negative [Negative] (09/26/13 11:30 PM) UA Nitrite Negative [Negative] (09/26/13 11:30 PM) UA WBC [None Seen 0-2 /HPF /HPF] (09/26/13 11:30 PM) UA RBC [0-2 /HPF] 0-2 /HPF (09/26/13 11:30 PM) UA Bacteria [None Few /HPF Seen /HPF] (09/26/13 11:30 PM) UA Sq Epi [Few /LPF] Occasional /LPF (09/26/13 11:30 PM) UA Mucus [None Seen Few /LPF /LPF] (09/26/13 11:30 PM) HEMATOLOGY Most recent to 1 oldest [Reference Range]: WBC [3.7-10.4 K/CMM] 5.8 K/CMM (09/26/13 11:30 PM) RBC [4.70-6.10 5.50 M/CMM M/CMM] (09/26/13 11:30 PM) Hgb [14.0-18.0 g/dL] 15.1 g/dL (09/26/13 11:30 PM) Hct [42.0-54.0 %] 45.6 % (09/26/13 11:30 PM) MCV [80.0-94.0 fL] 82.9 fL (09/26/13 11:30 PM) MCH [27.0-31.0 pg] 27.5 pg (09/26/13 11:30 PM) MCHC [32.0-36.0 33.2 g/dL g/dL] (09/26/13 11:30 PM) RDW [11.5-14.5 %] 12.5 % (09/26/13 11:30 PM) Platelet [133-450 281 K/CMM K/CMM] (09/26/13 11:30 PM) MPV [7.4-10.4 fL] 8.3 fL (09/26/13 11:30 PM) Segs [45.0-75.0 %] 56.7 % (09/26/13 11:30 PM) Lymphocytes 29.6 % [20.0-40.0 %] (09/26/13 11:30 PM) Monocytes [2.0-12.0 9.4 % %] (09/26/13 11:30 PM) Eosinophils [0.0-4.0 4.0 % %] (09/26/13 11:30 PM) Basophils [0.0-1.0 0.3 % %] (09/26/13 11:30 PM) Segs-Bands # 3.3 K/CMM [1.5-8.1 K/CMM] (09/26/13 11:30 PM) Lymphocytes # 1.7 K/CMM [1.0-5.5 K/CMM] (09/26/13 11:30 PM) Monocytes # [0.0-0.8 0.5 K/CMM K/CMM] (09/26/13 11:30 PM) Eosinophils # 0.2 K/CMM [0.0-0.5 K/CMM] (09/26/13 11:30 PM) Basophils # [0.0-0.2 0.0 K/CMM K/CMM] (09/26/13 11:30 PM) Medications Administered During Your Visit No data available for this section Immunizations No data available for this section Social History Social History Type Response Alcohol Use: Current, Frequency: 1-2 times per week Smoking Status Never smoker, Exposure to Tobacco Smoke None, Cigarette Smoking Last 365 Days No, Reg Smoking Cessation Counseling No
--- OUTSIDE RECORDS SUMMARY | 2018-03-11 20:06 | XMS REPORT | Summary of Care ---
Author Author [facility] Organization [facility] Address Unknown Phone Unavailable Encounter HQ Akshat(ROSHNI) [id number] Date(s): 09/14/17 - 09/14/17 [facility] [address] [place] [address]- Discharge Disposition: Left Without Being Seen Attending Physician: Shay Vasquez DO Vital Signs Most recent to 1 oldest [Reference Range]: Temperature Oral 98.6 DegF [96.4-99.1 DegF] (09/14/17 1:52 PM) Blood Pressure 210/122 mmHg [90-140/60-90 mmHg] *HI* (09/14/17 1:52 PM) Respiratory Rate 16 BRMIN [14-20 BRMIN] (09/14/17 1:52 PM) Peripheral Pulse 90 bpm Rate [60-100 bpm] (09/14/17 1:52 PM) Problem List Condition Effective Dates Status Health Status Informant Chest Active pain(Confirmed) Clostridium Active difficile(Confirmed) 1, 2 HTN Active (hypertension)(Confi rmed) Hypertension(Confirm Active ed) 112/8/14: +C.difficile - Stool 2Problem added by Discern Expert. Allergies, Adverse Reactions, Alerts Substance Reaction Severity Status NKDA Active Medications No data available for this section Results No data available for this section Immunizations No data available for this section Procedures No data available for this section Social History Social History Type Response Alcohol Current, Frequency: 3-5 times per week. Smoking Status Never smoker; Exposure to Tobacco Smoke None; Cigarette Smoking Last 365 Days No; Reg Smoking Cessation Counseling No entered on: 09/14/17 Assessment and Plan No data available for this section
--- OUTSIDE RECORDS SUMMARY | 2018-03-11 20:06 | XMS REPORT | Summary of Care ---
Author Organization Unknown Address Unknown Phone Unavailable Encounter PAVEL Oden(ROSHNI) [id number] Date(s): 09/27/13 - 09/28/[address] Discharge Disposition: Home Physician Attending: Helena Quezada MD Physician Admitting: Helena Quezada MD Physician_Referring: Denis Edmonds Si, DO Reason for Visit HTN URGENCY, CHEST PAIN,ABDOMINAL PAIN Vital Signs 1 2 3 Most recent to oldest [Reference Range]: 187.96 cm (09/27/13 8:00 AM) Height 81.8 kg (09/28/13 6:23 AM) Current Weight 155 mmHg *HI* (09/28/13 5:00 PM) 153 mmHg *HI* (09/28/13 4:30 PM) 166 mmHg *HI* (09/28/13 4:00 PM) Systolic Blood Pressure [90-140 mmHg] 83 mmHg (09/28/13 5:00 PM) 81 mmHg (09/28/13 4:30 PM) 75 mmHg (09/28/13 4:00 PM) Diastolic Blood Pressure [60-90 mmHg] 28 BRMIN *HI* (09/28/13 5:00 PM) 15 BRMIN (09/28/13 4:30 PM) 18 BRMIN (09/28/13 4:00 PM) Respiratory Rate [14-20 BRMIN] 81.818 kg (09/27/13 8:00 AM) Weight 23.16 m2 (09/27/13 8:00 AM) Body Mass Index Problem List Condition Effective Dates Status Health Status Informant Chest Active pain(Confirmed) HTN Active (hypertension)(Confi rmed) Hypertension(Confirm Active ed) Allergies, Adverse Reactions, Alerts Substance Reaction Severity Status NKDA Active Medications Ambien 5 mg, 1 tab, Route: PO, Drug form: TAB, Bedtime, Dosing Weight 81.818, kg, PRN a s needed for sleep, Start date: 09/27/13 19:51:00, Duration: 30 day, Stop date: 10/27/13 19:50:00 Notes: (Same As: Ambien) Start Date: 09/27/13 Stop Date: 09/28/13 Status: Discontinued amLODIPine 5 mg oral tablet 10 mg=2 tab, PO, Daily, # 15 tab, 0 Refill(s) Start Date: 09/28/13 Status: Ordered aspirin 325 mg, 1 tab, Route: PO, Drug form: TAB, Daily, Dosing Weight 81.818, kg, Start date: 09/27/13 19:59:00, Duration: 30 day, Stop date: 10/27/13 9:00:00 Notes: Take with food. Start Date: 09/27/13 Stop Date: 09/28/13 Status: Discontinued aspirin 81 mg tablet, enteric coated 81 mg=1 tab, PO, Daily, # 15 tab, 0 Refill(s) Start Date: 09/28/13 Status: Ordered Colace 100 mg oral capsule 100 mg, 1 cap, Route: PO, Drug form: CAP, BID, Dosing Weight 81.818, kg, Start d ate: 09/27/13 9:00:00, Duration: 30 day, Stop date: 10/26/13 17:00:00 Notes: (Same as: Colace) (Do Not Crush) Start Date: 09/27/13 Stop Date: 09/28/13 Status: Discontinued lactulose 10 gm, 15 ml, Route: PO, Drug Form: SYRP, Dosing Weight 81.818, kg, Daily, PRN C onstipation, Start date: 09/28/13 13:28:00, Duration: 30 day, Stop date: 4 13:27:00 Notes: (Same as:Chronulac) Start Date: 09/28/13 Stop Date: 09/28/13 Status: Discontinued lisinopril 20 mg oral tablet 40 mg=2 tab, PO, Daily, # 15 tab, 0 Refill(s) Start Date: 09/28/13 Status: Ordered Lotrel 10 mg-40 mg oral capsule 1 cap, Route: PO, Dosing Weight 81.818, kg, Daily, Start date: 09/27/13 9:00:00, Duration: 30 day, Stop date: 10/26/13 9:00:00 Start Date: 09/27/13 Stop Date: 09/27/13 Status: Deleted metoprolol tartrate 12.5 mg, 0.5 tab, Route: PO, Drug form: TAB, Q12H, Dosing Weight 81.818, kg, Sta rt date: 09/27/13 9:00:00, Stop date: 10/26/13 21:00:00 Notes: (Same as: Lopressor) Start Date: 09/27/13 Stop Date: 09/28/13 Status: Discontinued metoprolol tartrate 25 mg oral tablet 12.5 mg=0.5 tab, PO, Q12H, # 15 tab, 0 Refill(s) Start Date: 09/28/13 Status: Ordered morphine Sulfate 1 mg, 0.5 mL, Route: IV, Drug form: INJ, Q4H, Dosing Weight 81.818, kg, PRN Ches t Pain, Start date: 09/27/13 8:56:00, Duration: 30 day, Stop date: 10/27/13 8:55 :00 Notes: (Same as:MORPhine Sulfate) Start Date: 09/27/13 Stop Date: 09/28/13 Status: Discontinued niCARdipine 40 mg in NS 200 ml IV 40 mg 40 mg, 200 mL, Rate: Titrate, Dosing Weight 81.818, kg, Route: IV, Total Volume: 200 mL, Start Date: 09/27/13 9:18:00, Duration: 30 day, Stop date: 10/27/13 9:1 7:00, Replace Every: 24 hr Notes: Same as: CardeneConcentration: (0.2 mg /1 ml ) Start Date: 09/27/13 Stop Date: 09/28/13 Status: Discontinued Norvasc 10 mg, 2 tab, Route: PO, Drug form: TAB, Daily, Start date: 09/27/13 9:44:00, Du ration: 30 day, Stop date: 10/27/13 9:00:00 Notes: (Same as: Norvasc) Start Date: 09/27/13 Stop Date: 09/28/13 Status: Discontinued Prinivil 40 mg, 2 tab, Route: PO, Drug form: TAB, Daily, Start date: 09/28/13 9:00:00, Du ration: 30 day, Stop date: 10/27/13 9:00:00 Notes: (Same as: Prinivil, Zestril) Start Date: 09/28/13 Stop Date: 09/28/13 Status: Discontinued senna 8.6 mg, 1 tab, Route: PO, Drug Form: TAB, Dosing Weight 81.818, kg, Daily, Start date: 09/27/13 9:00:00, Duration: 30 day, Stop date: 10/26/13 9:00:00 Notes: (Same as: Senokot) Start Date: 09/27/13 Stop Date: 09/27/13 Status: Discontinued Senokot 8.6 mg, 1 tab, Route: PO, Drug form: TAB, Daily, Start date: 09/27/13 12:43:00, Duration: 30 day, Stop date: 10/27/13 9:00:00 Notes: (Same as: Senokot) Start Date: 09/27/13 Stop Date: 09/28/13 Status: Discontinued Ultram 50 mg oral tablet 50 mg, 1 tab, Route: PO, Drug form: TAB, Q4H, Dosing Weight 81.818, kg, PRN Pain , Start date: 09/27/13 8:56:00, Stop date: 10/27/13 8:55:00 Notes: Not to exceed 400mg/day. (Same As: Ultram) Start Date: 09/27/13 Stop Date: 09/28/13 Status: Discontinued Ultram 50 mg oral tablet 50 mg=1 tab, PO, Q4H, Pain, # 30 tab, 0 Refill(s) Start Date: 09/28/13 Status: Ordered Zofran 4 mg, 2 mL, Route: IV, Drug form: INJ, Q8H, Dosing Weight 81.818, kg, PRN Nausea , Start date: 09/27/13 8:56:00, Duration: 30 day, Stop date: 10/27/13 8:55:00 Notes: (Same as: Zofran) Start Date: 09/27/13 Stop Date: 09/28/13 Status: Discontinued Results ELECTROLYTES Most recent to 1 2 oldest [Reference Range]: Sodium Lvl [135-145 138 mEq/L mEq/L] (09/28/13 3:40 AM) Potassium Lvl 4.2 mEq/L [3.5-5.1 mEq/L] (09/28/13 3:40 AM) Chloride Lvl [95-109 102 mEq/L mEq/L] (09/28/13 3:40 AM) CO2 [24-32 mEq/L] 28 mEq/L (09/28/13 3:40 AM) AGAP [10.0-20.0 12.2 mEq/L mEq/L] (09/28/13 3:40 AM) CHEM PANEL Most recent to 1 2 oldest [Reference Range]: Creatinine Lvl 1.2 mg/dL [0.5-1.4 mg/dL] (09/28/13 3:40 AM) eGFR 96 mL/min/1.73m2 1 *NA* (09/28/13 3:40 AM) BUN [7-22 mg/dL] 17 mg/dL (09/28/13 3:40 AM) Glucose Lvl [70-99 94 mg/dL 2 mg/dL] (09/28/13 3:40 AM) Calcium Lvl 8.6 mg/dL [8.5-10.5 mg/dL] (09/28/13 3:40 AM) Phosphorus [2.5-4.5 4.1 mg/dL mg/dL] (09/28/13 3:40 AM) Magnesium Lvl 2.1 mg/dL [1.8-2.4 mg/dL] (09/28/13 3:40 AM) 1Result Comment: The eGFR is calculated using [...] values reflect the clinical guidelines of the [place] [employer]. CARDIAC ENZYMES Most recent to 1 2 oldest [Reference Range]: Total CK [12-191 224 unit/L 257 unit/L unit/L] *HI* *HI* (09/27/13 3:20 PM) (09/27/13 10:30 AM) CK MB [0.5-3.6 1.1 ng/mL 1.0 ng/mL ng/mL] (09/27/13 3:20 PM) (09/27/13 10:30 AM) CK MB Index 0.5 0.4 [0.0-2.5] (09/27/13 3:20 PM) (09/27/13 10:30 AM) Troponin-I <0.02 ng/mL <0.02 ng/mL [0.00-0.40 ng/mL] (09/27/13 3:20 PM) (09/27/13 10:30 AM) ENDOCRINOLOGY Most recent to 1 2 oldest [Reference Range]: Cortisol [3.0-23.0 11.2 ug/dl 3 ug/dl] (09/27/13 10:30 AM) 3Interpretive Data: CORD BLOOD: 5 - 17 [...] 23.0 ug/dL 4PM 3.0 - 16.0 ug/dL HEMATOLOGY Most recent to 1 2 oldest [Reference Range]: WBC [3.7-10.4 K/CMM] 5.2 K/CMM (09/28/13 3:40 AM) RBC [4.70-6.10 5.01 M/CMM M/CMM] (09/28/13 3:40 AM) Hgb [14.0-18.0 g/dL] 13.4 g/dL *LOW* (09/28/13 3:40 AM) Hct [42.0-54.0 %] 42.2 % (09/28/13 3:40 AM) MCV [80.0-94.0 fL] 84.2 fL (09/28/13 3:40 AM) MCH [27.0-31.0 pg] 26.7 pg *LOW* (09/28/13 3:40 AM) MCHC [32.0-36.0 31.7 g/dL g/dL] *LOW* (09/28/13 3:40 AM) RDW [11.5-14.5 %] 12.6 % (09/28/13 3:40 AM) Platelet [133-450 260 K/CMM K/CMM] (09/28/13 3:40 AM) MPV [7.4-10.4 fL] 7.9 fL (09/28/13 3:40 AM) Segs [45.0-75.0 %] 48.7 % (09/28/13 3:40 AM) Lymphocytes 34.5 % [20.0-40.0 %] (09/28/13 3:40 AM) Monocytes [2.0-12.0 11.0 % %] (09/28/13 3:40 AM) Eosinophils [0.0-4.0 5.4 % %] *HI* (09/28/13 3:40 AM) Basophils [0.0-1.0 0.4 % %] (09/28/13 3:40 AM) Segs-Bands # 2.5 K/CMM [1.5-8.1 K/CMM] (09/28/13 3:40 AM) Lymphocytes # 1.8 K/CMM [1.0-5.5 K/CMM] (09/28/13 3:40 AM) Monocytes # [0.0-0.8 0.6 K/CMM K/CMM] (09/28/13 3:40 AM) Eosinophils # 0.3 K/CMM [0.0-0.5 K/CMM] (09/28/13 3:40 AM) Basophils # [0.0-0.2 0.0 K/CMM K/CMM] (09/28/13 3:40 AM) PT [12.0-14.7 12.8 seconds seconds] (09/28/13 3:40 AM) INR [0.85-1.17] 0.97 4 (09/28/13 3:40 AM) PTT [22.9-35.8 32.0 seconds 5 seconds] (09/28/13 3:40 AM) 4Interpretive Data: RECOMMENDED RANGES FOR PROTIME INR: 2.0-3.0 for most medical and surgical thromboembolic states. 2.5-3.5 for artificial heart valves and recurrent embolism. INR SHOULD BE USED ONLY FOR PATIENTS ON STABLE ANTICOAGULANT THERAPY. 5Interpretive Data: Heparin Therapeutic Range: 57 - 92 Seconds BACTERIAL - SEROLOGY Most recent to 1 2 oldest [Reference Range]: MRSA by PCR Negative 6 (09/27/13 9:00 AM) 6Interpretive Data: Interpretive Data: The [employer] [...] reaction (PCR) assay detects a proprietary sequence indicat felicitas of the integration of the SCCmec cassette into the Staphylococcus aureus chr omosome, indicating the presence of MRSA DNA. The assay utilizes FDA cleared IV D reagents. Performance characteristics have been verified by the [facility] within the [facility]. The [facility] is authorized under the Clinical Laboratory Improvement Amendment of 1 988 (CLIA-88) to perform high complexity testing. Medications Administered During Your Visit No data available for this section Immunizations No data available for this section Social History Social History Type Response Alcohol Use: Current, Frequency: 1-2 times per week Smoking Status Never smoker, Exposure to Tobacco Smoke None, Cigarette Smoking Last 365 Days No, Reg Smoking Cessation Counseling No
--- OUTSIDE RECORDS SUMMARY | 2018-03-11 20:06 | XMS REPORT | Summary of Care ---
Author Author [facility] Organization [facility] Address Unknown Phone Unavailable Encounter PAVEL Oden(FIN) [id number] Date(s): 09/14/17 - 09/14/17 [facility] [address] [place] [address]- [phone] Discharge Disposition: Home or Self Care Attending Physician: Kimo Johnson MD Vital Signs 1 2 3 Most recent to oldest [Reference Range]: 187.96 cm (09/14/17 2:48 PM) Height 98.6 DegF (09/14/17 4:11 PM) 98.1 DegF (09/14/17 2:48 PM) Temperature Oral [96.4-99.1 DegF] 179/115 mmHg *HI* (09/14/17 4:14 PM) 179/115 mmHg *HI* (09/14/17 4:11 PM) 191/136 mmHg *HI* (09/14/17 3:33 PM) Blood Pressure [90-140/60-90 mmHg] 20 BRMIN (09/14/17 4:14 PM) 22 BRMIN *HI* (09/14/17 4:11 PM) 22 BRMIN *HI* (09/14/17 3:33 PM) Respiratory Rate [14-20 BRMIN] 71 bpm (09/14/17 4:14 PM) 85 bpm (09/14/17 3:33 PM) 95 bpm (09/14/17 2:48 PM) Peripheral Pulse Rate [60-100 bpm] 100 kg (09/14/17 2:48 PM) Weight 28.31 m2 (09/14/17 2:48 PM) Body Mass Index Problem List Condition Effective Dates Status Health Status Informant Chest Active pain(Confirmed) Clostridium Active difficile(Confirmed) 1, 2 HTN Active (hypertension)(Confi rmed) Hypertension(Confirm Active ed) 112: +C.difficile - Stool 2Problem added by Discern Expert. Allergies, Adverse Reactions, Alerts Substance Reaction Severity Status NKDA Active Medications Samreen Perles 100 mg oral capsule 100 mg=1 cap, PO, TID, X 7 day, # 21 cap, 0 Refill(s) Start Date: 09/14/17 Stop Date: 09/21/17 Status: Ordered Results ELECTROLYTES Most recent to 1 oldest [Reference Range]: Sodium Lvl [135-145 139 mEq/L mEq/L] (09/14/17 3:15 PM) Potassium Lvl 3.7 mEq/L [3.5-5.1 mEq/L] (09/14/17 3:15 PM) Chloride Lvl [95-109 104 mEq/L mEq/L] (09/14/17 3:15 PM) CO2 [24-32 mEq/L] 29 mEq/L (09/14/17 3:15 PM) AGAP [10.0-20.0 9.7 mEq/L mEq/L] *LOW* (09/14/17 3:15 PM) CHEM PANEL Most recent to 1 oldest [Reference Range]: Creatinine Lvl 1.27 mg/dL [0.50-1.40 mg/dL] (09/14/17 3:15 PM) eGFR 87 mL/min/1.73m2 1 *NA* (09/14/17 3:15 PM) BUN [7-22 mg/dL] 13 mg/dL (09/14/17 3:15 PM) B/C Ratio [6-25] 10 (09/14/17 3:15 PM) Glucose Lvl [70-99 96 mg/dL mg/dL] (09/14/17 3:15 PM) Total Protein 8.5 g/dL [6.4-8.4 g/dL] *HI* (09/14/17 3:15 PM) Albumin Lvl [3.5-5.0 3.9 g/dL g/dL] (09/14/17 3:15 PM) Globulin [2.7-4.2 4.6 g/dL g/dL] *HI* (09/14/17 3:15 PM) A/G Ratio [0.7-1.6] 0.8 (09/14/17 3:15 PM) Calcium Lvl 9.3 mg/dL [8.5-10.5 mg/dL] (09/14/17 3:15 PM) ALT [0-65 unit/L] 18 unit/L (09/14/17 3:15 PM) AST [0-37 unit/L] 19 unit/L (09/14/17 3:15 PM) Alk Phos [39-136 74 unit/L unit/L] (09/14/17 3:15 PM) Bili Total [0.2-1.3 0.5 mg/dL mg/dL] (09/14/17 3:15 PM) Lipase Lvl [73-393 143 unit/L unit/L] (09/14/17 3:15 PM) 1Result Comment: The eGFR is calculated [...] be mul tiplied by the estimated BMI. CARDIAC ENZYMES Most recent to 1 oldest [Reference Range]: Total CK [12-191 213 unit/L unit/L] *HI* (09/14/17 3:15 PM) CK MB [0.5-3.6 1.0 ng/mL ng/mL] (09/14/17 3:15 PM) CK MB Index 0.5 [0.0-2.5] (09/14/17 3:15 PM) Troponin-I <0.02 ng/mL [0.00-0.40 ng/mL] (09/14/17 3:15 PM) proBNP [0-125 pg/mL] 88 pg/mL (09/14/17 3:15 PM) DRUG SCREEN Most recent to 1 oldest [Reference Range]: U Amph Scr Negative [Negative] *NA* (09/14/17 3:15 PM) U Tomeka Scr Negative [Negative] *NA* (09/14/17 3:15 PM) U Benzodia Scr Negative [Negative] *NA* (09/14/17 3:15 PM) U Cocaine Scr Negative [Negative] *NA* (09/14/17 3:15 PM) U Opiate Scr Negative [Negative] *NA* (09/14/17 3:15 PM) U Phencyc Scr Negative [Negative] *NA* (09/14/17 3:15 PM) U Cannab Scr Negative [Negative] *NA* (09/14/17 3:15 PM) UDS Note See Note *NA* (09/14/17 3:15 PM) URINE AND STOOL Most recent to 1 oldest [Reference Range]: UA Turbidity [Clear] Clear (09/14/17 3:15 PM) UA Color [Yellow] Yellow *NA* (09/14/17 3:15 PM) UA pH [5.0-8.0] 6.0 (09/14/17 3:15 PM) UA Spec Grav >=1.030 [<=1.030] *ABN* (09/14/17 3:15 PM) UA Glucose Negative [Negative] (09/14/17 3:15 PM) UA Blood [Negative] Negative (09/14/17 3:15 PM) UA Ketones Trace [Negative] *ABN* (09/14/17 3:15 PM) UA Protein Trace [Negative] *ABN* (09/14/17 3:15 PM) UA Urobilinogen 0.2 EU/dL [0.1-1.0 EU/dL] (09/14/17 3:15 PM) UA Bili [Negative] Negative *NA* (09/14/17 3:15 PM) UA Leuk Est Negative [Negative] (09/14/17 3:15 PM) UA Nitrite Negative [Negative] (09/14/17 3:15 PM) UA WBC [None Seen 0-2 /HPF /HPF] (09/14/17 3:15 PM) UA Sq Epi [Few] None Seen (09/14/17 3:15 PM) HEMATOLOGY Most recent to 1 oldest [Reference Range]: WBC [3.7-10.4 K/CMM] 8.2 K/CMM (09/14/17 3:15 PM) RBC [4.70-6.10 5.28 M/CMM M/CMM] (09/14/17 3:15 PM) Hgb [14.0-18.0 g/dL] 13.8 g/dL *LOW* (09/14/17 3:15 PM) Hct [42.0-54.0 %] 42.8 % (09/14/17 3:15 PM) MCV [80.0-94.0 fL] 81.1 fL (09/14/17 3:15 PM) MCH [27.0-31.0 pg] 26.2 pg *LOW* (09/14/17 3:15 PM) MCHC [32.0-36.0 32.3 g/dL g/dL] (09/14/17 3:15 PM) RDW [11.5-14.5 %] 13.3 % (09/14/17 3:15 PM) MPV [7.4-10.4 fL] 7.4 fL (09/14/17 3:15 PM) Platelet [133-450 339 K/CMM K/CMM] (09/14/17 3:15 PM) Segs [45.0-75.0 %] 70.7 % (09/14/17 3:15 PM) Lymphocytes 18.5 % [20.0-40.0 %] *LOW* (09/14/17 3:15 PM) Monocytes [2.0-12.0 7.8 % %] (09/14/17 3:15 PM) Eosinophils [0.0-4.0 2.2 % %] (09/14/17 3:15 PM) Basophils [0.0-1.0 0.8 % %] (09/14/17 3:15 PM) Segs-Bands # 5.8 K/CMM [1.5-8.1 K/CMM] (09/14/17 3:15 PM) Lymphocytes # 1.5 K/CMM [1.0-5.5 K/CMM] (09/14/17 3:15 PM) Monocytes # [0.0-0.8 0.6 K/CMM K/CMM] (09/14/17 3:15 PM) Eosinophils # 0.2 K/CMM [0.0-0.5 K/CMM] (09/14/17 3:15 PM) Basophils # [0.0-0.2 0.1 K/CMM K/CMM] (09/14/17 3:15 PM) Immunizations No data available for this section [...]
--- OUTSIDE RECORDS SUMMARY | 2018-03-11 20:06 | XMS REPORT | Summary of Care ---
Author Organization Unknown Address Unknown Phone Unavailable Encounter PAVEL Oden(ROSHNI) [id number] Date(s): 04/09/14 - 04/10/14 [facility] [address] [address]- [facility] Discharge Disposition: Home Physician Attending: Padmini Rodriguez MD Reason for Visit UNCONTROLLED HYPERTENSION Vital Signs 1 2 3 Most recent to oldest [Reference Range]: 187.96 cm (04/09/14 3:04 PM) 187.96 cm (04/09/14 7:21 AM) Height 98.4 DegF (04/10/14 11:58 AM) 98.4 DegF (04/10/14 7:55 AM) 98.2 DegF (04/10/14 4:00 AM) Temperature Oral [96.4-99.1 DegF] 147 mmHg *HI* (04/10/14 11:58 AM) 138 mmHg (04/10/14 7:55 AM) 140 mmHg (04/10/14 4:00 AM) Systolic Blood Pressure [90-140 mmHg] 86 mmHg (04/10/14 11:58 AM) 108 mmHg *HI* (04/10/14 7:55 AM) 97 mmHg *HI* (04/10/14 4:00 AM) Diastolic Blood Pressure [60-90 mmHg] 16 BRMIN (04/10/14 11:58 AM) 18 BRMIN (04/10/14 4:00 AM) 18 BRMIN (04/10/14 12:00 AM) Respiratory Rate [14-20 BRMIN] 63 bpm (04/10/14 11:58 AM) 85 bpm (04/10/14 7:55 AM) 86 bpm (04/10/14 4:00 AM) Peripheral Pulse Rate [60-100 bpm] 91.818 kg (04/09/14 3:04 PM) 91.818 kg (04/09/14 7:21 AM) Weight 25.99 m2 (04/09/14 3:04 PM) 25.99 m2 (04/09/14 7:21 AM) Body Mass Index Problem List Condition Effective Dates Status Health Status Informant Chest Active pain(Confirmed) Clostridium Active difficile(Confirmed) 1, 2 HTN Active (hypertension)(Confi rmed) Hypertension(Confirm Active ed) : +C.difficile - Stool 2Problem added by Discern Expert. Allergies, Adverse Reactions, Alerts Substance Reaction Severity Status NKDA Active Medications acetaminophen 650 mg, 2 tab, Route: PO, Drug form: TAB, Q4H, Dosing Weight 91.818, kg, PRN Connie n 1-3/Temp > 100.4 F, Start date: 04/09/14 17:07:00, Duration: 30 day, Stop date: 05/09/14 17:06:00 Notes: Do not exceed 4 gm/day. (Same as: Tylenol) Start Date: 04/09/14 Stop Date: 04/10/14 Status: Discontinued acetaminophen 650 mg, 2 tab, Route: PO, Drug form: TAB, Q4H, Dosing Weight 91.818, kg, PRN Connie n 1-3/Temp > 100.4 F, Start date: 04/09/14 14:57:00, Duration: 30 day, Stop date: 05/09/14 14:56:00 Notes: Do not exceed 4 gm/day. (Same as: Tylenol) Start Date: 04/09/14 Stop Date: 04/10/14 Status: Discontinued acetaminophen-hydrocodone 325 mg-5 mg oral tablet 1 tab, Route: PO, Drug Form: TAB, Dosing Weight 91.818, kg, Q4H, PRN Pain Score 1-3, Start date: 04/09/14 17:07:00, Duration: 30 day, Stop date: 05/09/14 17:06: 00 Notes: (Same as: [place] 325/5) Do not exceed 4gm/day of acetaminophen. Start Date: 04/09/14 Stop Date: 04/10/14 Status: Discontinued amLODIPine 10 mg, 2 tab, Route: PO, Drug form: TAB, Daily, Dosing Weight 91.818, kg, Priori ty: NOW, Start date: 04/09/14 17:04:00, Duration: 30 day, Stop date: 05/09/14 9: 00:00 Notes: (Same as: Jigar) Start Date: 04/09/14 Stop Date: 04/10/14 Status: Discontinued amLODIPine 10 mg oral tablet 10 mg=1 tab, PO, Daily, # 30 tab, 0 Refill(s) Start Date: 04/10/14 Status: Ordered cloNIDine 0.1 mg oral tablet 0.1 mg, 1 tab, Route: PO, Drug form: TAB, Q6H, Dosing Weight 91.818, kg, PRN See Nurse's Notes, Start date: 04/09/14 15:06:00, Duration: 30 day, Stop date: 10/16 15:05:00, for SBP>160 or DBP>95 Notes: (Same As: Karmaaprivana) Start Date: 04/09/14 Stop Date: 04/10/14 Status: Discontinued docusate 100 mg, 1 cap, Route: PO, Drug form: CAP, BID, Dosing Weight 91.818, kg, Start d ate: 04/10/14 9:00:00, Duration: 30 day, Stop date: 05/09/14 17:00:00 Notes: (Same as: Colace) (Do Not Crush) Start Date: 04/10/14 Stop Date: 04/10/14 Status: Discontinued hydrALAZINE 20 mg, Route: IVP, ONCE, Dosing Weight 91.818, kg, Priority: STAT, Start date: 06/10/13 7:52:00, Stop date: 04/09/14 7:52:00 Start Date: 04/09/14 Stop Date: 04/09/14 Status: Completed hydrALAZINE 20 mg, Route: IVP, ONCE, Dosing Weight 91.818, kg, Priority: STAT, Start date: 06/10/13 11:55:00, Stop date: 04/09/14 11:55:00 Start Date: 04/09/14 Stop Date: 04/09/14 Status: Completed labetalol 20 mg, 4 mL, Route: IVP, Drug form: INJ, Q6H, Dosing Weight 91.818, kg, PRN See Nurse's Notes, Start date: 04/09/14 15:06:00, Duration: 30 day, Stop date: 05/09 15:05:00, for SBP >160 or DBP>95 Notes: (Same as: Normodyne, Trandate)Push over 2 minutes Give bolus over 2-3 mi nutes. Start Date: 04/09/14 Stop Date: 04/10/14 Status: Discontinued labetalol 20 mg, Route: IVP, Drug form: INJ, ONCE, Dosing Weight 91.818, kg, Priority: STA T, Start date: 04/09/14 10:23:00, Stop date: 04/09/14 10:23:00 Start Date: 04/09/14 Stop Date: 04/09/14 Status: Completed lisinopril 0 Refill(s) Start Date: 04/09/14 Stop Date: 04/10/14 Status: Discontinued lisinopril 40 mg, 2 tab, Route: PO, Drug form: TAB, Daily, Dosing Weight 91.818, kg, Priori ty: NOW, Start date: 04/09/14 17:05:00, Duration: 30 day, Stop date: 05/09/14 9: 00:00 Notes: (Same as: Prinivil, Zestril) Start Date: 04/09/14 Stop Date: 04/10/14 Status: Discontinued lisinopril 40 mg oral tablet 40 mg=1 tab, PO, Daily, # 30 tab, 0 Refill(s) Start Date: 04/10/14 Status: Ordered Lotrel 10 mg-40 mg oral capsule 1 cap, PO, Daily, # 30 cap, 0 Refill(s) Start Date: 04/10/14 Status: Ordered metoprolol extended release 25 mg, 1 tab, Route: PO, Drug form: ERTAB, Daily, Start date: 04/10/14 9:00:00, Duration: 30 day, Stop date: 05/09/14 9:00:00 Notes: (Same as: Toprol XL) Do Not Crush Start Date: 04/10/14 Stop Date: 04/10/14 Status: Discontinued morphine Sulfate 2 mg, 1 mL, Route: IVP, Drug form: INJ, Q4H, Dosing Weight 91.818, kg, PRN Pain Score 4-6, Start date: 04/09/14 17:07:00, Duration: 30 day, Stop date: 05/09/14 17:06:00 Notes: (Same as:MORPhine Sulfate) Start Date: 04/09/14 Stop Date: 04/10/14 Status: Discontinued morphine Sulfate 4 mg, Route: IVP, ONCE, Dosing Weight 91.818, kg, Priority: STAT, Start date: 7:43:00, Stop date: 04/09/14 7:43:00 Start Date: 04/09/14 Stop Date: 04/09/14 Status: Completed NS (Bolus) IV 500 mL, 500 ml/hr, Infuse Over: 1 hr, Route: IV, ONCE, Priority: STAT, Dosing We ight 91.818 kg, Start date: 04/09/14 13:16:00, Duration: 1 doses or times, Stop date: 04/09/14 13:16:00 Start Date: 04/09/14 Stop Date: 04/09/14 Status: Discontinued Omnipaque 300 150 mL, 600 ml/hr, Route: IV, Drug Form: SOLN, ONCE, Start date: 04/09/14 9:04:0 0, Stop date: 04/09/14 9:04:00 Notes: (Same as:Omnipaque 300). Start Date: 04/09/14 Stop Date: 04/10/14 Status: Completed ondansetron 4 mg, 2 mL, Route: IVP, Drug form: INJ, ONCE, Dosing Weight 91.818, kg, PRN Naus ea & Vomiting, Start date: 04/09/14 17:07:00 Notes: (Same as: Zofran) Start Date: 04/09/14 Stop Date: 04/09/14 Status: Completed ondansetron 4 mg, Route: IVP, ONCE, Dosing Weight 91.818, kg, Priority: STAT, Start date: 7:43:00, Stop date: 04/09/14 7:43:00 Start Date: 04/09/14 Stop Date: 04/09/14 Status: Completed pantoprazole 40 mg oral enteric coated tablet 40 mg=1 tab, PO, Before Breakfast, # 30 tab, 0 Refill(s) Start Date: 04/10/14 Status: Ordered Protonix 40 mg, 1 tab, Route: PO, Drug form: ECTAB, Before Breakfast, Dosing Weight 91.81 8, kg, Start date: 04/10/14 7:30:00, Duration: 30 day, Stop date: 05/09/14 7:30: 00 Notes: Tablet should not be chewed or crushed.(Same as: Protonix) Start Date: 04/10/14 Stop Date: 04/10/14 Status: Discontinued Saline Flush 0.9% 10 ml, Route: IVP, Drug Form: INJ, Dosing Weight 91.818, kg, PRN, PRN Line Flush , Start date: 04/09/14 17:07:00, Duration: 30 day, Stop date: 05/09/14 17:06:00 Notes: (Same as: BD Posiflush) Start Date: 04/09/14 Stop Date: 04/10/14 Status: Discontinued Saline Flush 0.9% 10 mL, Route: IVP, Drug Form: INJ, Dosing Weight 91.818, kg, PRN, PRN Line Flush , Start date: 04/09/14 7:43:00, Duration: 30 day, Stop date: 05/09/14 7:42:00 Notes: (Same as: BD Posiflush) Start Date: 04/09/14 Stop Date: 04/10/14 Status: Discontinued tramadol 50 mg oral tablet 50 mg=1 tab, PO, Q6H, Pain, # 30 tab, 0 Refill(s) Start Date: 04/10/14 Stop Date: 04/20/14 Status: Ordered Tylenol 1,000 mg, Route: PO, ONCE, Dosing Weight 91.818, kg, Start date: 04/09/14 12:13: 00, Stop date: 04/09/14 12:13:00 Start Date: 04/09/14 Stop Date: 04/09/14 Status: Completed Vasotec 1.25 mg, Route: IV, ONCE, Dosing Weight 91.818, kg, Start date: 04/09/14 8:46:00 , Stop date: 04/09/14 8:46:00 Start Date: 04/09/14 Stop Date: 04/09/14 Status: Completed Results ELECTROLYTES Most recent to 1 2 oldest [Reference Range]: Sodium Lvl [135-145 139 mEq/L 138 mEq/L mEq/L] (04/10/14 6:26 AM) (04/09/14 8:00 AM) Potassium Lvl 3.9 mEq/L 4.2 mEq/L [3.5-5.1 mEq/L] (04/10/14 6:26 AM) (04/09/14 8:00 AM) Chloride Lvl [95-109 105 mEq/L 105 mEq/L mEq/L] (04/10/14 6:26 AM) (04/09/14 8:00 AM) CO2 [24-32 mEq/L] 25 mEq/L 25 mEq/L (04/10/14 6:26 AM) (04/09/14 8:00 AM) AGAP [10.0-20.0 12.9 mEq/L 12.2 mEq/L mEq/L] (04/10/14 6:26 AM) (04/09/14 8:00 AM) CHEM PANEL Most recent to 1 2 oldest [Reference Range]: Creatinine Lvl 1.2 mg/dL 1.1 mg/dL [0.5-1.4 mg/dL] (04/10/14 6:26 AM) (04/09/14 8:00 AM) eGFR 95 mL/min/1.73m2 1 106 mL/min/1.73m2 2 *NA* *NA* (04/10/14 6:26 AM) (04/09/14 8:00 AM) BUN [7-22 mg/dL] 12 mg/dL 16 mg/dL (04/10/14 6:26 AM) (04/09/14 8:00 AM) B/C Ratio [6-25] 15 (04/09/14 8:00 AM) Glucose Lvl [70-99 105 mg/dL 3 104 mg/dL 4 mg/dL] *HI* *HI* (04/10/14 6:26 AM) (04/09/14 8:00 AM) Total Protein 8.2 g/dL [6.4-8.4 g/dL] (04/09/14 8:00 AM) Albumin Lvl [3.5-5.0 4.3 g/dL g/dL] (04/09/14 8:00 AM) Globulin [2.0-4.0 3.9 g/dL g/dL] (04/09/14 8:00 AM) A/G Ratio [0.7-1.6] 1.1 (04/09/14 8:00 AM) Calcium Lvl 9.0 mg/dL 9.4 mg/dL [8.5-10.5 mg/dL] (04/10/14 6:26 AM) (04/09/14 8:00 AM) ALT [0-65 unit/L] 40 unit/L (04/09/14 8:00 AM) AST [0-37 unit/L] 25 unit/L (04/09/14 8:00 AM) Alk Phos [39-136 51 unit/L unit/L] (04/09/14 8:00 AM) Bili Total [0.2-1.3 0.6 mg/dL mg/dL] (04/09/14 8:00 AM) Amylase Lvl [25-115 50 unit/L unit/L] (04/09/14 8:00 AM) Lipase Lvl [73-393 126 unit/L unit/L] (04/09/14 8:00 AM) 1Result Comment: The eGFR is calculated [...] be mul tiplied by the estimated BMI. 2Result Comment: The eGFR is calculated using [...] be mul tiplied by the estimated BMI. 3Interpretive Data: Adult reference range values reflect the clinical guidelines of the [place] [employer]. 4Interpretive Data: Adult reference range values reflect the clinical guidelines of the [place] [employer]. CARDIAC ENZYMES Most recent to 1 2 oldest [Reference Range]: Total CK [12-191 219 unit/L unit/L] *HI* (04/09/14 8:00 AM) CK MB [0.5-3.6 1.3 ng/mL ng/mL] (04/09/14 8:00 AM) CK MB Index 0.6 [0.0-2.5] (04/09/14 8:00 AM) Troponin-I <0.02 ng/mL [0.00-0.40 ng/mL] (04/09/14 8:00 AM) SPECIAL CHEMISTRY Most recent to 1 2 oldest [Reference Range]: Hgb A1C [<=5.6 %] 4.8 % (04/10/14 6:26 AM) DRUG SCREEN Most recent to 1 2 oldest [Reference Range]: U Amph Scr Negative [Negative] *NA* (04/09/14 10:15 AM) U Tomeka Scr Negative [Negative] *NA* (04/09/14 10:15 AM) U Benzodia Scr Negative [Negative] *NA* (04/09/14 10:15 AM) U Cocaine Scr Negative [Negative] *NA* (04/09/14 10:15 AM) U Opiate Scr Positive [Negative] *ABN* (04/09/14 10:15 AM) U Phencyc Scr Negative [Negative] *NA* (04/09/14 10:15 AM) U Cannab Scr Negative [Negative] *NA* (04/09/14 10:15 AM) UDS Note See Note 5 (04/09/14 10:15 AM) 5Interpretive Data: Drugs reported as positive have [...] URINE AND STOOL Most recent to 1 2 oldest [Reference Range]: UA Turbidity [Clear] Clear (04/09/14 10:15 AM) UA Color [Yellow] Yellow *NA* (04/09/14 10:15 AM) UA pH [5.0-8.0] 6.5 (04/09/14 10:15 AM) UA Spec Grav 1.010 [<=1.030] (04/09/14 10:15 AM) UA Glucose [Negative Negative mg/dL mg/dL] (04/09/14 10:15 AM) UA Blood [Negative] Negative (04/09/14 10:15 AM) UA Ketones [Negative Negative mg/dL mg/dL] *NA* (04/09/14:15 AM) UA Protein [Negative Negative mg/dL mg/dL] (04/09/14 10:15 AM) UA Urobilinogen 0.2 EU/dL [0.1-1.0 EU/dL] (04/09/14 10:15 AM) UA Bili [Negative] Negative *NA* (04/09/14:15 AM) UA Leuk Est Negative [Negative] (04/09/14 10:15 AM) UA Nitrite Negative [Negative] (04/09/14 10:15 AM) UA WBC [None Seen 0-2 /HPF /HPF] (04/09/14 10:15 AM) UA RBC [0-2 /HPF] 0-2 /HPF (04/09/14 10:15 AM) UA Bacteria [None Occasional /HPF Seen /HPF] (04/09/14 10:15 AM) UA Sq Epi [Few /LPF] Few /LPF (04/09/14 10:15 AM) HEMATOLOGY Most recent to 1 2 oldest [Reference Range]: WBC [3.7-10.4 K/CMM] 6.7 K/CMM (04/09/14 8:00 AM) RBC [4.70-6.10 5.32 M/CMM M/CMM] (04/09/14 8:00 AM) Hgb [14.0-18.0 g/dL] 14.5 g/dL (04/09/14 8:00 AM) Hct [42.0-54.0 %] 44.2 % (04/09/14 8:00 AM) MCV [80.0-94.0 fL] 83.2 fL (04/09/14 8:00 AM) MCH [27.0-31.0 pg] 27.2 pg (04/09/14 8:00 AM) MCHC [32.0-36.0 32.7 g/dL g/dL] (04/09/14 8:00 AM) RDW [11.5-14.5 %] 12.4 % (04/09/14 8:00 AM) Platelet [133-450 310 K/CMM K/CMM] (04/09/14 8:00 AM) MPV [7.4-10.4 fL] 8.1 fL (04/09/14 8:00 AM) Segs [45.0-75.0 %] 73.1 % (04/09/14 8:00 AM) Lymphocytes 17.2 % [20.0-40.0 %] *LOW* (04/09/14 8:00 AM) Monocytes [2.0-12.0 5.8 % %] (04/09/14 8:00 AM) Eosinophils [0.0-4.0 3.5 % %] (04/09/14 8:00 AM) Basophils [0.0-1.0 0.4 % %] (04/09/14 8:00 AM) Segs-Bands # 4.9 K/CMM [1.5-8.1 K/CMM] (04/09/14 8:00 AM) Lymphocytes # 1.1 K/CMM [1.0-5.5 K/CMM] (04/09/14 8:00 AM) Monocytes # [0.0-0.8 0.4 K/CMM K/CMM] (04/09/14 8:00 AM) Eosinophils # 0.2 K/CMM [0.0-0.5 K/CMM] (04/09/14 8:00 AM) Basophils # [0.0-0.2 0.0 K/CMM K/CMM] (04/09/14 8:00 AM) RBC Morph Normal (04/09/14 8:00 AM) Plt Morph Normal (04/09/14 8:00 AM) PT [12.0-14.7 12.5 seconds seconds] (04/09/14 8:00 AM) INR [0.85-1.17] 0.94 6 (04/09/14 8:00 AM) PTT [22.9-35.8 33.0 seconds 7 seconds] (04/09/14 8:00 AM) 6Interpretive Data: RECOMMENDED RANGES FOR PROTIME INR: 2.0-3.0 for most medical and surgical thromboembolic states. 2.5-3.5 for artificial heart valves and recurrent embolism. INR SHOULD BE USED ONLY FOR PATIENTS ON STABLE ANTICOAGULANT THERAPY. 7Interpretive Data: Heparin Therapeutic Range: 57 - 92 Seconds MOLECULAR DIAGNOSTIC Most recent to 1 2 oldest [Reference Range]: C difficile DNA Positive 8, 9 [Negative] *ABN* (04/10/14 10:30 AM) 8Result Comment: "Significant Findings called to Laya Garay at 04/10/2014 23:39 by SBA.Read Back OK." 9Interpretive Data: [employer] illum[employer]ene Clostridium difficile assay utilizes loop-mediated isothermal DNA amplification (LAMP) technology to detect a 204 bp region of the tcdA gene within the PaLoc gene segment present in all known toxigenic C. difficile strains. The assay utilizes FDA cleared IVD reagents. Performance characteristics have be en verified by the [facility] within the [facility]. The [facility] is authorized under the Clinical Labo ratory Improvement Amendment of 1988 (CLIA-88) to perform high complexity testin g. Medications Administered During Your Visit No data available for this section Immunizations No data available for this section Social History Social History Type Response Alcohol Use: Current, Frequency: 3-5 times per week Smoking Status Never smoker, Exposure to Tobacco Smoke None, Cigarette Smoking Last 365 Days No, Reg Smoking Cessation Counseling No
[2018-03-11] MEDS ORDERED: CLONIDINE HCL 0.2 MG TAB PO ONE (20:15)
[2018-03-11] MEDS ORDERED: KETOROLAC TROMETHAMINE 60 MG/2 ML VIAL IM ONE (20:15)
[2018-03-11] MEDS ORDERED: METHYLPREDNISOLONE SOD SUCC 125 MG/2ML VIAL IM ONE (20:15)
--- NOTE | 2018-03-11 21:11 | Diagnostic Imaging Report ---
Lumbar Spine Radiographs: 3 views HISTORY: On-and-off right lower back pain. COMPARISON: None available. DISCUSSION: Some of the osseous structures are partially obscured by stool and bowel gas. There are five non-rib bearing lumbar vertebral bodies. The alignment of the spine is within normal limits. Straightening of the lumbar lordosis. No displaced fracture or compression deformity is identified. No calcifications overlie the renal silhouettes. Disc Spaces: The disc spaces are well maintained. Facets: The facet joints are unremarkable. IMPRESSION: No acute radiographic abnormality. Signed by: DR. Jimmy Archer MD on 03/11/2018 9:07 PM
[2018-03-11] MEDS ORDERED: HYDROCODONE/APAP 5MG-325MG TAB PO ONE (21:30)
== END 2018-03-11 21:30 | disposition home or self-care (01) ==
LOC: FSED 20:01
DX: M54.5 Low back pain (principal)
CPT/HCPCS: 72100; 99283; J1885; J2930

== ENCOUNTER 2018-07-01 23:56 | Inpatient (IN) | payer OTHER ==
[~2018-07-01] VITALS: Ht 188 cm; Wt 99.9 kg
--- OUTSIDE RECORDS SUMMARY | 2018-07-01 23:59 | XMS REPORT | Clinical Summary ---
Author Author JESSY [facility]otSt[facility] CenterAttunityH[facility] Address Unknown Phone Unavailable Care Team Providers Care Speck Dyer Name Role Phone Pcp, No PCP Unavailable [...] mouth daily. Active Problems Not on file Encounters Care Team Description Date Type Specialty Willie Tenorio MD Gastroesophageal reflux disease, esophagitis presence not specified (Primary Dx) 03/30/2018 Outside Orders Willie Tenorio MD Appointment 03/30/2018 Telephone General Surgery after 06/30/2017 Social History Date Tobacco Use Types Packs/Day Years Used Never Assessed Sex Assigned at Date Recorded Not on file Industry Job Start Date Occupation Not on file Not on file Not on file Travel End Travel History Travel Start No recent travel history available. Last Filed Vital Signs Not on file Plan of Treatment Not on file Results Not on fileafter 06/30/2017 Insurance Payer Benefit Subscriber ID Type Phone Address Plan / Group MEDICAID - MEDICAID [facility] xxxxxxxxx Medicaid CARE COMM [employer] Contracted PLAN
--- OUTSIDE RECORDS SUMMARY | 2018-07-01 23:59 | XMS REPORT | Clinical Summary ---
Author Author [facility] Organization [facility] Address Unknown Phone Unavailable Care Team Providers Care Solution Lead Name Role Phone Asked, No Pcp PCP Unavailable Allergies Comments Active Allergy Reactions Severity Noted Date migraine Morphine Other (See 03/14/2016 Comments) Medications End Date Status Medication Sig Dispensed Refills Start Date Active orphenadrine (NORFLEX) Take 1 tablet 30 tablet 0 100 mg 12 hr tablet (100 mg 7 total) by mouth 2 (two) times a day as needed for muscle spasms for up to 30 doses. Active Problems Not on file Social History Date Tobacco Use Types Packs/Day Years Used Never Smoker Alcohol Use Drinks/Week oz/Week Comments [...] INFLUENZA VACCINE 12/02/2017 Results Not on fileafter 06/30/2017 Insurance Payer Benefit Subscriber ID Type Phone Address Plan / Group [facility] MEDICAID [facility] xxxxxxxxx HMO COMM STAR+ [facility] MEDICAID MEDICAID xxxxxxxxx Medicaid Mason Mcnally Third Self 1985 [id number] (Home) [place], [place] Liability [id number] Advance Directives Patient has advance care planning documents on file. For more information, jayda hoover contact: Maicol Brannon [phone] [place] [address]
--- OUTSIDE RECORDS SUMMARY | 2018-07-02 00:01 | XMS REPORT ---
[facility] Address Unknown Phone Unavailable Care Team Providers Care C T Tech Name Role Phone Orlin FRENCH Unavailable Unavailable Problems This patient has no known problems. Allergies, Adverse Reactions, Alerts This patient has no known allergies or adverse reactions. Medications This patient has no known medications. Results Test Description Test Time Test Comments Text Results Atomic Results Result Comments L SPINE 2-3 WS - HOPD 2018-03-11 21:04:00 [place] [address] Patient Name: KOFI MURPHY MR #: [id number] : 1985 Age/Sex: 33/M Req #: [id number] Adm Physician: Ordered by: SATHYA FRENCH MD Report #: [id number] Location: [facility] Room/Bed: Procedure: [id number] HOPD/L SPINE 2-3 VEWS - HOPD Exam Date: 03/11/18 Exam Time: 2039 REPORT STATUS: Signed Lumbar Spine Radiographs: 3 views HISTORY: On-and-off right lower back pain. COMPARISON: None available. DISCUSSION: Some of the osseous structures are partially obscured by stool and bowel gas. There are five non-rib bearing lumbar vertebral bodies. The alignment of the spine is within normal limits. Straightening of the lumbar lordosis. No displaced fracture or compression deformity is identified. No calcifications overlie the renal silhouettes. Disc Spaces: The disc spaces are well maintained. Facets: The facet joints are unremarkable. IMPRESSION: No acute radiographic abnormality. Signed by: DR. Jimmy Rangel MD on 03/11/2018 9:07 PM Dictated By: JIMMY RANGEL MD 06 Transcribed By: ODILIA on 03/11/182106 COPY TO: SATHYA FRENCH MD
[2018-07-02] MEDS ORDERED: ONDANSETRON HCL INJ 2MG/ML 2ML 2 MG/ML VIAL IV STA (00:20)
[2018-07-02] MEDS ORDERED: CLONIDINE HCL 0.1 MG TAB PO ONE (00:30)
[2018-07-02] MEDS ORDERED: MORPHINE SULFATE INJ 4 MG/ML INJ 1ML IV ONE (00:30)
[2018-07-02] MEDS ORDERED: CYCLOBENZAPRINE HCL 10 MG TAB PO ONE (00:30)
[2018-07-02] MEDS ORDERED: HYDROCODONE/APAP 5MG-325MG TAB PO ONE ×2 (01:00→02:45)
--- NOTE | 2018-07-02 01:15 | Diagnostic Imaging Report ---
EXAMINATION: CXR 1 VIEW - HOPD COMPARISON: None INDICATION: Back, neck, center chest pain ^[id number] ^0050 DISCUSSION: Frontal view of the chest obtained at 0048 hours. HEART AND MEDIASTINUM: The heart is top normal in size. LINES: None. LUNGS: Pulmonary vascular markings are mildly prominent. Mild diffuse groundglass airspace opacities. No confluent infiltrates. PLEURA: No pleural effusion or pneumothorax. BONES AND SOFT TISSUES: No focal osseous lesion. The soft tissues are normal. IMPRESSION: Mild vascular congestion and mild diffuse groundglass airspace opacities suggestive of edema. Recommend correlation with PA and lateral chest x-ray if clinically feasible. Signed by: Dr. Ana Paula Mcnally MD on 07/02/2018 1:12 AM
[2018-07-02] MEDS ORDERED: LABETALOL HCL 5 MG/ML 20ML VIAL IV STA (01:32)
[2018-07-02] MEDS ORDERED: HYDRALAZINE HCL 20 MG/ML VIAL IV STA (02:43)
[2018-07-02] MEDS ORDERED: ASPIRIN 81 MG CHEW TAB PO ONE (02:45)
[2018-07-02] MEDS ORDERED: SODIUM CHLORIDE FLUSH 10 ML SYR INJ PRN (02:45)
[2018-07-02] MEDS ORDERED: HYDRALAZINE HCL 20 MG/ML VIAL IV PRN (02:45)
[2018-07-02] MEDS ORDERED: LABETALOL HCL 5 MG/ML 20ML VIAL IV PRN (02:45)
[2018-07-02] MEDS ORDERED: FUROSEMIDE INJ 10 MG/ML 4 ML VIAL IV ONE (02:45)
[2018-07-02] MEDS ORDERED: FUROSEMIDE INJ 10 MG/ML 4 ML VIAL IV SCH (06:00)
--- OUTSIDE RECORDS SUMMARY | 2018-07-02 06:47 | XMS REPORT | Clinical Summary ---
Author Author [facility] Address Unknown Phone Unavailable Care Team Providers Care Driver License Agent Name Role Phone Pcp, No PCP Unavailable [...] MD Appointment 03/30/2018 Telephone General Surgery after 07/01/2017 Social History Date Tobacco Use Types Packs/Day Years Used Never Assessed Sex Assigned at Date Recorded Not on file Industry Job Start Date Occupation Not on file Not on file Not on file Travel End Travel History Travel Start No recent travel history available. Last Filed Vital Signs Not on file Plan of Treatment Not on file Results Not on fileafter 07/01/2017 Insurance Payer Benefit Subscriber ID Type Phone Address Plan / Group MEDICAID - MEDICAID [facility] xxxxxxxxx Medicaid CARE COMM STAR Contracted PLAN
--- OUTSIDE RECORDS SUMMARY | 2018-07-02 06:47 | XMS REPORT | Clinical Summary ---
Author Author [facility] Address Unknown Phone Unavailable Care Team Providers Care Online Merchandising Coordinator Name Role Phone Asked, No Pcp PCP [...] INFLUENZA VACCINE 12/02/2017 Results Not on fileafter 07/01/2017 Insurance Payer Benefit Subscriber ID Type Phone Address Plan / Group [facility] MEDICAID [facility] xxxxxxxxx HMO COMM STAR+ [facility] MEDICAID MEDICAID xxxxxxxxx Medicaid Mason Mcnally Third Self 1985 [id number] [address] (Home) [place], [place] Liability [id number] Advance Directives Patient has advance care planning documents on file. For more information, jayda hoover contact: Maicol Brannon [address] [place] [address]
--- NOTE | 2018-07-02 07:22 | NUR ---
2nd set cardiac markers drawn and running. bnp running. vss. pt aaox4. ambulatory. no cp no sob. updated plan of care.
--- NOTE | 2018-07-02 07:24 | NUR ---
sinus rhythm no ectopy noted.
--- NOTE | 2018-07-02 09:59 | NUR ---
mary and michi called pending call back. pt wanting to leave and follow up outpt
--- NOTE | 2018-07-02 10:59 | NUR ---
[facility] called. report to er.
--- NOTE | 2018-07-02 11:55 | NUR ---
[employer] notified of pt's arrival to ER RM 5 at this time.
--- NOTE | 2018-07-02 12:00 | NUR ---
[facility] ON ARRIVAL, PT AMBULATORY FROM EMS STRETCHER TO ED STRETCHER.
--- NOTE | 2018-07-02 12:30 | NUR ---
ECHO AT BEDSIDE AT THIS TIME.
[2018-07-02 13:05] VITALS: BP 156/109
--- NOTE | 2018-07-02 13:05 | NUR ---
Pt arrived on unit at this time. Pt is aox4 and able to verbalize needs. Complains of pain to neck and chest when he bends over. Breaths are even and unlabored.
[2018-07-02 13:10] VITALS: BP 156/109
[2018-07-02 13:26] VITALS: BP 156/109
[2018-07-02 15:16] LABS: CREATINE KINASE MB 0.8 ng/mL (0-5.0)
[2018-07-02 16:36] VITALS: BP 163/110
[2018-07-02] MEDS: KETOROLAC TROMETHAMINE 30 MG/ML VIAL IV PRN ×2 (17:16→18:37)
[2018-07-02] MEDS: ENOXAPARIN SOD INJ 40 MG/0.4 ML SYR SC SCH (17:24)
[2018-07-02] MEDS: CARVEDILOL 12.5 MG TAB PO SCH (17:24)
[2018-07-02 20:05] VITALS: BP 164/88
[2018-07-02 21:00] VITALS: BP 164/88
[2018-07-02] MEDS ORDERED: LISINOPRIL 2.5 MG TAB PO SCH (21:00)
--- NOTE | 2018-07-02 23:40 | Consultation ---
DATE OF CONSULTATION: 07/02/2018 Cardiology consultation. ATTENDING PHYSICIAN: Dr. Fco Terrazas. REASON FOR CONSULTATION: Mr. Mcnally is a pleasant 33-year-old black man, who presented to the [facility] emergency room overnight with a compliant of left neck and shoulder discomfort. HISTORY OF PRESENT ILLNESS: The patient thinks may be he strained a muscle working or something. He adds that he knows he has high blood pressure, but has not been taking his medications regularly. PAST MEDICAL HISTORY: Significant for hypertension. He has no other distinct previous diagnosis. He does not take medications on a regular basis. FAMILY HISTORY: Parents both have cardiac disease. REVIEW OF SYSTEMS: Negative. PHYSICAL EXAMINATION: GENERAL: At this time, show a pleasant man, who is about 6 feet and 2 inches tall, weighing 220 pounds. VITAL SIGNS: Blood pressure 156/109. HEAD, EYES, EARS, NOSE, AND THROAT: Unremarkable. NECK: No jugular venous distention. THORAX: Heart sounds S1 and S2 are equal. There is a 1/6 systolic murmur. LUNGS: Clear. ABDOMEN: Protuberant. Normal bowel sounds. EXTREMITIES: Have trace pretibial edema. RADIOGRAPHIC DATA: Review of echocardiogram suggests EF of 30% to 35% with mildly dilated left ventricle. LABORATORY DATA: Laboratory studies done in the [facility] ER show creatinine of 1.1. ASSESSMENT: 1. Probable hypertensive cardiomyopathy. 2. Probable musculoskeletal discomfort. PLAN: We will adjust blood pressure medications. Check BMP, thyroid functions, and cortisol. We will plan Cardiolite for him on Thursday to assess for any possible underlying coronary artery disease. MD EVAN Mars/MP /[id number] cc: Ashvin Catalan MD
[2018-07-02 23:52] LABS: CREATINE KINASE MB 0.7 ng/mL (0-5.0)
[2018-07-03] VITALS (9 sets, daily range): BP systolic 156–180; BP diastolic 86–107
[2018-07-03] MEDS: KETOROLAC TROMETHAMINE 30 MG/ML VIAL IV PRN (05:08)
--- NOTE | 2018-07-03 06:59 | NUR ---
Report given to oncoming nurse,walking round done.
[2018-07-03 08:11] LABS: ANION GAP 10.9 mmol/L (8-16); BLOOD UREA NITROGEN 23 mg/dL (7-26); BUN/CREATININE RATIO 18 (6-25); CARBON DIOXIDE 27 mmol/L (22-29); CHLORIDE 104 mmol/L (98-107); CHOLESTEROL 193 MD/DL (0-199); CREATININE, SERUM 1.27 mg/dL (0.72-1.25); EST GLOMERULAR FILTRATION RATE > 60 ML/MIN (60-); GLUCOSE 100 mg/dL (74-118); HDL CHOLESTEROL 48 MG/DL (40-60); LDL CHOLESTEROL 126 MG/DL (60-130); POTASSIUM 3.9 mmol/L (3.5-5.1); SODIUM 138 mmol/L (136-145); TRIGLYCERIDES 93 MG/DL (0-149)
[2018-07-03 08:33] LABS: FREE THYROXINE INDEX 2.2311 (1.4-3.8); THYROID STIMULATING HORMONE 1.166 uIU/mL (0.350-4.940)
[2018-07-03] MEDS: CARVEDILOL 12.5 MG TAB PO SCH ×2 (08:52→18:18)
[2018-07-03] MEDS ORDERED: HYDROCHLOROTHIAZIDE 25 MG TAB PO SCH (09:00)
[2018-07-03 09:10] LABS: CREATINE KINASE MB 0.7 ng/mL (0-5.0)
[2018-07-03] MEDS ORDERED: ACETAMINOPHEN 325 MG TAB PO PRN (15:30)
--- NOTE | 2018-07-03 16:45 | Diagnostic Imaging Report ---
EXAMINATION: CHEST 2 VIEWS INDICATION: CHF. COMPARISON: Chest x-ray 07/02/2018. FINDINGS: PA and lateral views TUBES and LINES: None. LUNGS: Lungs are well inflated. There are bibasilar atelectasis. There is slight increase in perihilar interstitial opacities, consistent with interstitial edema. PLEURA: No pleural effusion or pneumothorax. HEART AND MEDIASTINUM: Cardiac size is moderately enlarged. BONES AND SOFT TISSUES: No acute osseous lesion. Soft tissues are unremarkable. UPPER ABDOMEN: No free air under the diaphragm. IMPRESSION: Slight increase in mild interstitial edema. Unchanged moderate cardiomegaly. Signed by: Dr. Curt Murphy M.D. on 07/03/2018 4:42 PM
--- NOTE | 2018-07-03 17:33 | Progress Note ---
DATE: 07/03/2018 Cardiology Progress Note I am seeing this patient for Dr. eBn Garcia. SUBJECTIVE: The patient was seen, chart reviewed, discussed with nurse. Diagnoses: 1. The patient came with chest pain and back pain. 2. History of severe hypertension. 3. Congestive heart failure. The patient's echo, EF 30% to 35%. 4. Family history of hypertension and also diabetes mellitus. 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 The patient came for the chest pain and also back pain. The patient troponins are negative. The patient's blood pressure will be controlled with antihypertensive medication, started here. Please refer to the admission and present medication list. Blood pressure about 140/90. The patient complains of weakness and tiredness. EKG shows nonspecific ST changes. At this time, the patient to continue all medications and the patient's creatinine is 1.2. Discussed with him the cause of blood pressure and also his renal dysfunction, which is very very mild at this time and he drinks alcohol I believe. We told him to quit drinking. The patient at this time is improving blood pressure and no significant chest pain and the patient has to stay may be couple of days for the control of his blood pressure. MD JESI Noriega/MP /[id number]
[2018-07-03] MEDS: ENOXAPARIN SOD INJ 40 MG/0.4 ML SYR SC SCH (18:18)
--- NOTE | 2018-07-03 18:18 | Diagnostic Imaging Report ---
EXAM: Renal Ultrasound INDICATION: CKD. COMPARISON: None TECHNIQUE: Transverse and longitudinal images of the kidneys and bladder were obtained. FINDINGS: Right Kidney: Size: 9.7 x 4.2 x 4.3 cm Echogenicity: Normal Parenchymal thickness: Normal Collecting system: No hydronephrosis Stones: None Cyst/Mass: None Left Kidney: Size: 10.1 x 5.1 x 5.3 cm Echogenicity: Normal Parenchymal thickness: Normal Collecting system: No hydronephrosis Stones: None Cyst/Mass: None Bladder: Normal IMPRESSION: Normal renal ultrasound exam. Signed by: Dr. Curt Murphy M.D. on 07/03/2018 6:15 PM
--- NOTE | 2018-07-03 18:43 | Progress Note ---
DATE: Internal Medicine Progress Note SUBJECTIVE: The patient is doing well. No significant complaint. OBJECTIVE: VITAL SIGNS: Blood pressure 160/92, temperature 97.9, heart rate 69 per minute, respiratory rate 18 per minute, and oxygen saturation 99%. HEART: Showed regular rhythm. No murmur or added sound. LUNGS: Clear bilaterally. ABDOMEN: Soft. LABORATORY DATA: BMP; sodium 138, potassium 3.9, chloride 104, CO2 27, BUN 23, creatinine 1.27, and glucose 100. FINAL IMPRESSION: 1. hypertension with hypertensive cardiomyopathy with chronic renal failure. 2. Acute on chronic systolic congestive heart failure. 3. Chronic renal failure, stage III. PLAN OF TREATMENT: Continue Lovenox 40 mg subcutaneously daily, hydralazine 10 mg IV q.4 hours as needed, labetalol 10 mg IV q.2 hours as needed. We are going to continue carvedilol 12.5 mg twice a day. Discontinue hydrochlorothiazide. Increase lisinopril to 10 mg daily. MD HEMALATHA Yusuf/MP /[id number]
[2018-07-03] MEDS: TRAMADOL/APAP 37.5MG-325MG TAB PO PRN (19:06)
[2018-07-04] VITALS (7 sets, daily range): BP systolic 137–156; BP diastolic 86–97
--- NOTE | 2018-07-04 06:49 | NUR ---
Report given to oncoming nurse.
[2018-07-04] MEDS: FUROSEMIDE 40 MG TAB PO SCH (08:18)
[2018-07-04] MEDS: LISINOPRIL 10 MG TAB PO SCH (08:18)
[2018-07-04] MEDS: CARVEDILOL 12.5 MG TAB PO SCH ×2 (08:18→16:33)
--- NOTE | 2018-07-04 11:00 | NUR ---
Pt requested more information on stress test and gave pt written information about stress test with lexiscan.
--- NOTE | 2018-07-04 11:32 | Consultation ---
DATE OF CONSULTATION: REASON FOR CONSULTATION: Uncontrolled hypertension and acute kidney injury. 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, was admitted with shoulder and neck pain. The patient was found to have CHF with ejection fraction of 30% to 35% with mildly dilated left ventricle. His blood pressure was elevated at 156/109. The patient says he was on losartan/hydrochlorothiazide, but the medication gives him headaches, so he was not taking it everyday. No history of smoking, no intravenous drug abuse, drinks alcohol occasionally. The patient was found to be in acute kidney injury with creatinine of 1.27. Nephrology has been called. The patient is currently on Coreg. PAST MEDICAL HISTORY: Hypertension. FAMILY HISTORY: Positive for heart disease and high blood pressure. SOCIAL HISTORY: No history of smoking, intravenous drug abuse. Positive alcohol occasionally. ALLERGIES: MORPHINE. MEDICATIONS: Currently on Coreg 25 mg p.o. twice a day, Lasix 40 mg p.o. daily, lisinopril 10 mg p.o. daily, tramadol, hydralazin p.r.n., labetalol p.r.n. REVIEW OF SYSTEMS: GENERAL: No fatigue, no fever, no chills. HEENT: Occasional headache. No blurry vision. NECK: No dysphagia. CARDIOVASCULAR: No chest pain. No PND. No orthopnea. RESPIRATORY: No shortness of breath or dizziness. No cough or hemoptysis. GI: No nausea, vomiting or diarrhea. No abdominal pain. No hematemesis. No melena. MUSCULOSKELETAL: No ankle swelling. NEUROLOGIC: No numbness or tingling. SKIN: No new rash. PHYSICAL EXAMINATION: VITAL SIGNS: On admission, the patient's blood pressure was 174/127, current blood pressure is 156/97, pulse of 74, respirations 20, temperature 97.6, 100% on room air. GENERAL: Awake, alert, oriented x3, not in apparent distress. HEENT: PERRLA. Extraocular movements intact. NECK: No JVD. HEART: S1 and S2. LUNGS: CTA BILATERALLY ABDOMEN: Soft. Bowel sound positive. EXTREMITIES: No edema. NEUROLOGIC: No focal deficits. LABORATORY DATA: Sodium 138, potassium 3.9, chloride 104, CO2 of 27, BUN 23, creatinine 1.27, hemoglobin A1c 4.8, TSH 1.16. Chest x-ray done on admission, mild pulmonary vascular congestion. Renal ultrasound, right kidney is 9.7 cm and left kidney is 10.1 cm. Echocardiogram done on 07/02/2018, with left ventricle is mildly dilated, ejection fraction was 30% to 35%, mild MR. ASSESSMENT AND PLAN: 1. Acute kidney injury likely secondary to accelerated hypertension. The patient may have underlying hypertensive nephrosclerosis. We will check urinalysis and protein-creatinine ratio. Control blood pressure slowly. Discussed with the patient regarding low-salt diet and compliance with the medication to keep the blood pressure under good control , renal ultrasound noted. Avoid NSAIDs and other nephrotoxin medications. Continue with LAURA inhibitor for now. 2. Hypertension. Currently on Coreg, Lasix and lisinopril. We will increase lisinopril to 20 mg p.o. daily. 3. Congestive heart failure, likely secondary to accelerated hypertension. The patient to get stress test tomorrow. Dr. Garcia is following. Continue with low-salt diet and needs better blood pressure control. 4. Gastroesophageal reflux disease. No acute issues. I want to thank Dr. Carrasco for the consult. We will follow the patient with you. MD JOJO Short/MP /[id number]
[2018-07-04 11:56] LABS: CLARITY,URINE CLEAR (CLEAR); COLOR,URINE YELLOW (YELLOW)
[2018-07-04] MEDS: TRAMADOL/APAP 37.5MG-325MG TAB PO PRN (11:56)
[2018-07-04 11:57] LABS: BILIRUBIN,URINE NEGATIVE (NEGATIVE); KETONES,URINE NEGATIVE (NEGATIVE); LEUKOCYTE ESTERASE ,URINE NEGATIVE (NEGATIVE); NITRITE,URINE NEGATIVE (NEGATIVE); PROTEIN,URINE DIPSTICK NEGATIVE (NEGATIVE); URINE UROBILINOGEN 0.2 mg/dL (0.2 - 1)
[2018-07-04 12:14] LABS: CREATININE,URINE RANDOM 43.52 mg/dL (63-166)
[2018-07-04 12:15] LABS: TOTAL PROTEIN, URINE < 6.8 mg/dL (1-14)
--- NOTE | 2018-07-04 13:42 | Progress Note ---
DATE: Internal Medicine Progress Note SUBJECTIVE: He is complaining of neck pain and chest pain at times. OBJECTIVE: VITAL SIGNS: Blood pressure 156/97, temperature 97.6, heart rate 74 per minute, respiratory rate is 20 per minute, oxygen saturation 100%. HEART: Showed regular rhythm. No murmur or added sound. LUNGS: Clear bilaterally. ABDOMEN: Soft. EXTREMITIES: Show no evidence of cyanosis, edema, or trauma. LABORATORY DATA: BMP; sodium 138, potassium 3.9, chloride 104, CO2 of 27, BUN 23, creatinine 1.27, glucose 100. FINAL IMPRESSION: 1. Accelerated hypertension with hypertensive cardiomyopathy with congestive heart failure. 2. Hypertension with chronic renal failure. 3. Acute on chronic systolic congestive heart failure. 4. Chronic renal failure stage 3. PLAN OF TREATMENT: Continue with Lovenox 40 mg subcutaneously daily. Continue hydralazine 10 mg IV q.4 hours as needed for hypertension. Continue labetalol 10 mg IV q.2 hours as needed for hypertension, lisinopril 10 mg daily, carvedilol 25 mg twice a day, furosemide 40 mg daily, Ultracet 1 tablet q.6 hours as needed for pain. Cardiology on the case, which is Dr. Garcia as well as Nephrology is on the case also. We are going to try to optimize the antihypertensive regimen to get the blood pressure of close to 120/80. The patient received meds today for chest pain. MD HEMALATHA Yusuf/MP /[id number]
--- NOTE | 2018-07-04 16:16 | NUR ---
RD Recommendation for Physician: Continue diet as ordered Plan of Care: RD following, monitoring for adequacy and tolerance Nutrition reason for involvement: Nutrition Risk Trigger MST Primary Diagnose(s):accelerated HTN, CHF Ht:74 in Wt:217.44lbs BMI:27.9 kg/m2 IBW:190lbs RD Assessment:(07/04/2018) Initial encounter with patient. Pt denies any difficulty chewing or swallowing nor has any N,V,D. Pt is reporting a good appetite/Po intake and denies any wt changes Current Diet: Cardiac diet Malnutrition Evaluation (07/04/2018) The patient does not meet criteria for a specified degree of malnutrition at this time. Will re-evaluate at follow-up as appropriate. Diet Education Needs Assessment: Diet education not indicated. Diet Adequacy: Meeting calorie needs, Meeting protein needs, Meeting fluid needs Tolerance: Tolerating PO Nutrition Care Level:odessa Terry RD, LD, CNSC
[2018-07-04] MEDS: ENOXAPARIN SOD INJ 40 MG/0.4 ML SYR SC SCH (16:33)
--- NOTE | 2018-07-04 18:30 | NUR ---
Pt states he is not ready to sign consent for stress test. Pt states he wants to speak to his again before signing consent. Cardiology here and was made aware.
--- NOTE | 2018-07-04 19:32 | NUR ---
RECEIVED PT IN BED AOX3 .RESPIRATIONS ARE EVEN AND UNLABORED .C/O ACID REFLUX .EXPLAIN ABOUT THE CONSENT TO SIGN FOR THE STRESS TEST .PT WAITING TO GET THE OPINION FROM THE TO SIGN THE CONSENT .CALL LIGHT WITH IN REACH CONTINUE TO MONITOR
[2018-07-04] MEDS ORDERED: PANTOPRAZOLE SOD 40 MG TABEC PO ONE (20:15)
[2018-07-05] VITALS (8 sets, daily range): BP systolic 143–166; BP diastolic 94–104
--- NOTE | 2018-07-05 01:05 | Progress Note ---
DATE: Cardiology Progress Note. SUBJECTIVE: The patient is seen in the room. Blood pressure 150/90. The patient has ejection fraction of 30% to 35%. The patient is taking all his medications. Please see hospital medications in the medication section area. At this time, the patient is ambulatory. Also the patient with chest pain. Renal specialist has seen the patient today. I explained to him the risks and complications of high blood pressure. I advised him to stop drinking alcohol and the patient has LVEF of 30% to 35%. He has hypertensive heart disease, mild renal dysfunction. The patient will be followed by Dr. Ben Garcia tomorrow. I advised the patient to also cutdown some salt intake, [id number] physical is advised and the patient is very anxious to go home. I explained to him that tomorrow after Dr. Garcia see the patient, he will explain to him further treatment and followup by him will be charted out. MD JESI Noriega/MP /[id number]
[2018-07-05 06:30] LABS: ANION GAP 11.9 mmol/L (8-16); BLOOD UREA NITROGEN 17 mg/dL (7-26); BUN/CREATININE RATIO 15 (6-25); CALCIUM 9.2 mg/dL (8.4-10.2); CARBON DIOXIDE 27 mmol/L (22-29); CHLORIDE 103 mmol/L (98-107); CREATININE, SERUM 1.14 mg/dL (0.72-1.25); EST GLOMERULAR FILTRATION RATE > 60 ML/MIN (60-); GLUCOSE 97 mg/dL (74-118); POTASSIUM 3.9 mmol/L (3.5-5.1); SODIUM 138 mmol/L (136-145)
[2018-07-05] MEDS: PANTOPRAZOLE SOD 40 MG TABEC PO SCH (07:30)
--- NOTE | 2018-07-05 07:43 | NUR ---
PT NPO FOR THE TEST AND REPORT GIVEN TO THE ONCOMING NURSE
[2018-07-05] MEDS: CARVEDILOL 12.5 MG TAB PO SCH ×2 (08:00→17:48)
[2018-07-05] MEDS ORDERED: REGADENOSON 0.4 MG/5 ML SYR IV ONE (09:32)
[2018-07-05] MEDS: FUROSEMIDE 40 MG TAB PO SCH (12:58)
[2018-07-05] MEDS: LISINOPRIL 10 MG TAB PO SCH (12:58)
[2018-07-05] MEDS: ENOXAPARIN SOD INJ 40 MG/0.4 ML SYR SC SCH (17:48)
--- NOTE | 2018-07-05 19:30 | NUR ---
PATIENT IS AWAKE AND IN STABLE CONDITION WITH NO S/S OF RESPIRATORY DISTRESS. NO PAIN VOICED. TELEMETRY APPLIED. FAMILY MEMBERS PRESENT IN ROOM. CALL LIGHT IS WITHIN REACH, PATIENT INSTRUCTED TO CALL FOR ASSISTANCE NEEDED. REPORT AND WALKING ROUNDS COMPLETED WITH ONCOMING NURSE.
--- NOTE | 2018-07-05 19:36 | Myoview Stress Test ---
DATE OF STUDY: 07/05/2018 13:21:00 Stress Test - Treadmill ONLY TITLE OF PROCEDURE: Lexiscan Myoview. The patient had resting perfusion images after an injection of 11 mCi of Technetium 99m Myoview. Later due to inability to exercise, the patient was given 0.4 mg of Lexiscan intravenously and shortly afterwards 33 mCi of Technetium 99m Myoview. Perfusion images were taken by rotational tomography. Comparison of resting and Lexiscan stress images shows no distinct evidence of any perfusion defect. Left ventricular function analysis suggests dilated left ventricle with end-diastolic volume of 198 mL. There is global hypokinesias and calculated ejection fraction is 28%, which is markedly reduced. FINAL IMPRESSION: 1. Normal Lexiscan Myoview for perfusion. 2. Dilated left ventricle with global hypokinesis and calculated ejection fraction 28%. MD EVAN Mars/MP /[id number]
--- NOTE | 2018-07-05 19:52 | NUR ---
RECEIVED PT IN BED AOX3 .FAMILY AT THE BEDSIDE .DENIES PAIN STRESS DONE .GUERRERO LIGHT WITH IN REACH .CONTINUE TO MONITOR
[2018-07-06] VITALS (8 sets, daily range): BP systolic 139–168; BP diastolic 82–116
[2018-07-06] MEDS: TRAMADOL/APAP 37.5MG-325MG TAB PO PRN (02:30)
--- NOTE | 2018-07-06 07:40 | NUR ---
PT RESTING AND GIVEN REPORT TO THE ON COMING NURSE
[2018-07-06] MEDS: CARVEDILOL 12.5 MG TAB PO SCH (08:42)
[2018-07-06] MEDS: PANTOPRAZOLE SOD 40 MG TABEC PO SCH (08:42)
[2018-07-06] MEDS: FUROSEMIDE 40 MG TAB PO SCH (08:42)
[2018-07-06] MEDS ORDERED: LISINOPRIL 10 MG TAB PO SCH (09:00)
[2018-07-06] MEDS ORDERED: LISINOPRIL 20 MG TAB PO SCH ×3 (09:00→17:00)
[2018-07-06] MEDS ORDERED: LISINOPRIL 20 MG TAB PO ONE (10:00)
[2018-07-06] MEDS ORDERED: LISINOPRIL10 MG PO (15:03)
[2018-07-06] MEDS ORDERED: HYDRALAZINE HCL25 MG PO (15:04)
[2018-07-06] MEDS ORDERED: CARVEDILOL12.5 MG PO (15:05)
[2018-07-06] MEDS ORDERED: LASIX40 MG PO (15:05)
[2018-07-06] MEDS ORDERED: ALDACTONE25 MG PO (15:06)
--- NOTE | 2018-07-06 17:10 | NUR ---
PATIENT DISCHARGE HOME- PATIENT OFF THE UNIT AT 1605 PER WHEELCHAIR ACCOMPANIED BY RN TO THE FRONT LOBBY. PATIENT IS IN STABLE CONDITION WITH NO S/S OF RESPIRATORY DISTRESS. NO PAIN VOICED. IV REMOVED WITH TIP INTACT. DISCHARGE TEACHING, INSTRUCTIONS, AND MEDICATIONS GIVEN TO THE PATIENT. ALL PERSONAL ITEMS TAKEN WITH THE PATIENT.
== END 2018-07-06 16:05 | disposition home or self-care (01) | DRG 291 ==
LOC: FSED 23:56 → ERHOLD 07-02 02:40 → MED/SURG3 07-02 13:14
DX: I13.0 Hypertensive heart and chronic kidney disease with heart failure and stage 1 through stage 4 chronic kidney disease, or unspecified chronic kidney disease (principal); I50.23 Acute on chronic systolic (congestive) heart failure; N17.9 Acute kidney failure, unspecified; I43 Cardiomyopathy in diseases classified elsewhere; K21.9 Gastro-esophageal reflux disease without esophagitis; N18.3 Chronic kidney disease, stage 3 (moderate)
CPT/HCPCS: 36415; 71045; 71046; 76770; 78452; 80048; 80053; 80061; 81001; 82533; 82550; 82553; 82570; 83036; 83880; 84156; 84436; 84443; 84479; 84484; 85025; 93005; 93017; 93306; 99284; A9502; J0360; J1650; J1885; J1940; J2405

== ENCOUNTER 2018-09-05 20:59 | Emergency (ER) | payer OTHER ==
[~2018-09-05] VITALS: Ht 188 cm; Wt 99.8 kg
[~2018-09-05 20:59] MED LIST changes: +ALDACTONE25 MG PO; +CARVEDILOL12.5 MG PO; +HYDRALAZINE HCL25 MG PO; +LASIX40 MG PO; +LISINOPRIL10 MG PO
--- OUTSIDE RECORDS SUMMARY | 2018-09-05 21:02 | XMS REPORT | Clinical Summary ---
Author Author [facility] Address Unknown Phone Unavailable Care Team Providers Care Highway Research Engineer Name Role Phone Asked, No Pcp PCP [...] Due Date Last Done Comments INFLUENZA VACCINE 12/02/2018 Results Not on fileafter 09/04/2017 Insurance Payer Benefit Subscriber ID Type Phone Address Plan / Group [facility] HMO COMM STAR+ [facility] MEDICAID MEDICAID xxxxxxxxx Medicaid Mason Mcnally Third Self 1985 [id number] [address]) [place], [place] Liability [id number] Advance Directives Patient has advance care planning documents on file. For more information, jayda hoover contact: Maicol Brannon [address] [place] [address]
--- OUTSIDE RECORDS SUMMARY | 2018-09-05 21:02 | XMS REPORT | Clinical Summary ---
Author Author [facility] Address Unknown Phone Unavailable Care Team Providers Care Athletic Trainer Name Role Phone Pcp, No PCP Unavailable [...] MD Appointment 03/30/2018 Telephone General Surgery after 09/04/2017 Social History Date Tobacco Use Types Packs/Day Years Used Never Assessed Sex Assigned at Date Recorded Not on file Industry Job Start Date Occupation Not on file Not on file Not on file Travel End Travel History Travel Start No recent travel history available. Last Filed Vital Signs Not on file Plan of Treatment Not on file Results Not on fileafter 09/04/2017 Insurance Payer Benefit Subscriber ID Type Phone Address Plan / Group MEDICAID - MEDICAID [facility] xxxxxxxxx Medicaid CARE COMM STAR Contracted PLAN
[2018-09-05] MEDS ORDERED: METHYLPREDNISOLONE SOD SUCC 125 MG/2ML VIAL IM ONE (22:00)
[2018-09-05] MEDS ORDERED: HYDROCODONE/APAP 5MG-325MG TAB PO ONE (22:00)
[2018-09-05] MEDS ORDERED: KETOROLAC TROMETHAMINE 60 MG/2 ML VIAL IM ONE (22:00)
== END 2018-09-05 22:23 | disposition home or self-care (01) ==
LOC: FSED 20:59
DX: M54.5 Low back pain (principal); M54.32 Sciatica, left side; X50.9XXA Other and unspecified overexertion or strenuous movements or postures, initial encounter; Y92.830 Public park as the place of occurrence of the external cause; I10 Essential (primary) hypertension
CPT/HCPCS: 99283; J2930

== ENCOUNTER 2019-01-23 11:40 | Emergency (ER) | payer OTHER ==
[~2019-01-23] VITALS: Ht 188 cm; Wt 93.0 kg
--- OUTSIDE RECORDS SUMMARY | 2019-01-23 11:43 | XMS REPORT | Clinical Summary ---
Author Author [facility] Address Unknown Phone Unavailable Care Team Providers Care Nurse Outreach Case Manager Name Role Phone Asked, No Pcp PCP [...] Use Types Packs/Day Years Used Never Smoker Drinks/Week oz/Week Comments Alcohol Use 6 days/wk// occasional Yes Sex Assigned at Date Recorded Not on file Industry Job Start Date Occupation Not on file Not on file Not on file Travel End Travel History Travel Start No recent travel history available. Last Filed Vital Signs Not on file Plan of Treatment Health Maintenance Due Date Last Done Comments INFLUENZA VACCINE 12/02/2018 Results Not on fileafter 01/22/2018 Insurance Type Payer Benefit Subscriber ID Effective Phone Address Plan / Dates Group HMO [employer] MEDICAID [employer] xxxxxxxxx 2016-P COMM STAR+ resent [facility] Medicaid MEDICAID MEDICAID xxxxxxxxx 2015-P resent Mason Mcnally Third Self 1985 [id number] [address] (Home) [place], [place] Liability [id number] Advance Directives For more information, please contact: [phone] Patient Sales Representative Uniforms Explanation Type Date Recorded Advance Directives, Living Will and Medical Power of Distributor Of Directories
--- OUTSIDE RECORDS SUMMARY | 2019-01-23 11:43 | XMS REPORT | Clinical Summary ---
Author Author JESSY [facility] Address Unknown Phone Unavailable Care Team Providers Care Snuff Maker Name Role Phone Pcp, No PCP Unavailable [...] for Pain. Max Daily Amount: 150 mg Active Problems Not on file Encounters Care Team Description Date Type Specialty Willie Tenorio MD Gastroesophageal reflux disease, esophagitis presence not specified (Primary Dx) 03/30/2018 Outside Orders Willie Tenorio MD Appointment 03/30/2018 Telephone General Surgery after 01/22/2018 Social History Date Tobacco Use Types Packs/Day Years Used Never Assessed Sex Assigned at Date Recorded Not on file Industry Job Start Date Occupation Not on file Not on file Not on file Travel End Travel History Travel Start No recent travel history available. Last Filed Vital Signs Not on file Plan of Treatment Not on file Results Not on fileafter 01/22/2018 Insurance Payer Benefit Subscriber ID Type Phone Address Plan / Group MEDICAID - MEDICAID [facility] xxxxxxxxx Medicaid CARE COMM STAR Contracted PLAN
--- OUTSIDE RECORDS SUMMARY | 2019-01-23 11:44 | XMS REPORT | Continuity of Care Document ---
Author Author [employer] Organization [employer] Address Unknown Phone Unavailable Care Team Providers Care Irrigator Head Name Role Phone [facility] [employer] Unavailable Unavailable Problems Problem Status Onset Date Classification Date Reported Comments Source CHEST/ BACK PAIN Active 09/14/2017 [facility] FLU LIKE SYMPTOMS Active 09/14/2017 [facility] CHEST PAIN Active 04/15/2014 [facility] ABD PAIN Active 04/09/2014 [facility] UNCONTROLLED HYPERTENSION Active 04/09/2014 [facility] HTN URGENCY, CHEST PAIN,ABDOMINAL PAIN Active 09/26/2013 [facility] CHEST PAIN/BLOOD IN STOOL Active 09/09/2011 [facility] 401.0 - MALIGNANT HYPER Active 03/20/2011 [facility] HYPERTENSIVE URGENCY Active 03/16/2011 [facility] Chest pain (finding) Active Problem 09/17/2017 [facility] Clostridium difficile (organism) Active Problem 09/17/2017 04/10/14: +C.difficile - Stool Problem added by Discern Expert. [facility] Hypertensive disorder, systemic arterial (disorder) Active Problem 09/17/2017 [facility] Chest pain Active Problem 09/11/2011 [facility] Hypertension Active Problem 09/11/2011 [facility] HYPERTENSION NOS Active [facility] CHEST PAIN NOS Active [facility] ABDMNAL PAIN [facility] SITE Active [facility] Medications Medication Details Route Status Patient Instructions Ordering Provider Order Date Source benzonatate 100 MG Oral Capsule [Tessalon Perles] 100 mg=1 cap, PO, TID, X 7 day, # 21 cap, 0 Refill(s) Active 09/14/2017 [facility] Amlodipine 10 MG / Benazepril hydrochloride 40 MG Oral Capsule [Lotrel 10/40] 1 cap, PO, Daily, # 30 cap, 0 Refill(s) Active 04/10/2014 [facility] tramadol hydrochloride 50 MG Oral Tablet 50 mg=1 tab, PO, Q6H, Pain, # 30 tab, 0 Refill(s) Active 04/10/2014 [place] pantoprazole 40 mg oral enteric coated tablet 40 mg=1 tab, PO, Before Breakfast, # 30 tab, 0 Refill(s) Active 04/10/2014 [place] amLODIPine 10 mg oral tablet 10 mg=1 tab, PO, Daily, # 30 tab, 0 Refill(s) Active 04/10/2014 [place] lisinopril 40 mg oral tablet 40 mg=1 tab, PO, Daily, # 30 tab, 0 Refill(s) Active 04/10/2014 [place] Docusate 100 mg, 1 cap, Route: PO, Drug form: CAP, BID, Dosing Weight 91.818, kg, Start date: 04/10/14 9:00:00, Duration: 30 day, Stop date: 05/09/14 17:00:00Notes: (Same as: Colace) (Do Not Crush) Inactive 04/10/2014 [place] metoprolol extended release 25 mg, 1 tab, Route: PO, Drug form: ERTAB, Daily, Start date: 04/10/14 9:00:00, Duration: 30 day, Stop date: 05/09/14 9:00:00Notes: (Same as: Toprol XL) Do Not Crush Inactive 04/10/2014 [place] Protonix 40 mg, 1 tab, Route: PO, Drug form: ECTAB, Before Breakfast, Dosing Weight 91.818, kg, Start date: 04/10/14 7:30:00, Duration: 30 day, Stop date: 05/09/14 7:30:00Notes: Tablet should not be chewed or crushed. (Same as: Protonix) Inactive 04/10/2014 [place] Saline Flush 0.9% 10 ml, Route: IVP, Drug Form: INJ, Dosing Weight 91.818, kg, PRN, PRN Line Flush, Start date: 04/09/14 17:07:00, Duration: 30 day, Stop date: 05/09/14 17:06:00Notes: (Same as: BD Posiflush) No Longer Active 04/09/2014 [place] Ondansetron 4 mg, 2 mL, Route: IVP, Drug form: INJ, ONCE, Dosing Weight 91.818, kg, PRN Nausea & Vomiting, Start date: 04/09/14 17:07:00Notes: (Same as: Zofran) Inactive 04/09/2014 [place] Morphine 2 mg, 1 mL, Route: IVP, Drug form: INJ, Q4H, Dosing Weight 91.818, kg, PRN Pain Score 4-6, Start date: 04/09/14 17:07:00, Duration: 30 day, Stop date: 05/09/14 17:06:00Notes: (Same as:MORPhine Sulfate) No Longer Active 04/09/2014 [place] Acetaminophen 325 MG / Hydrocodone Bitartrate 5 MG Oral Tablet 1 tab, Route: PO, Drug Form: TAB, Dosing Weight 91.818, kg, Q4H, PRN Pain Score 1-3, Start date: 04/09/14 17:07:00, Duration: 30 day, Stop date: 05/09/14 17:06:00Notes: (Same as: Dows 325/5) Do not exceed 4gm/day of acetaminophen. No Longer Active 04/09/2014 [facility] Acetaminophen 650 mg, 2 tab, Route: PO, Drug form: TAB, Q4H, Dosing Weight 91.818, kg, PRN Pain 1-3/Temp > 100.4 F, Start date: 04/09/14 17:07:00, Duration: 30 day, Stop date: 05/09/14 17:06:00Notes: Do not exceed 4 gm/day. (Same as: Tylenol) No Longer Active 04/09/2014 [facility] Lisinopril 40 mg, 2 tab, Route: PO, Drug form: TAB, Daily, Dosing Weight 91.818, kg, Priority: NOW, Start date: 04/09/14 17:05:00, Duration: 30 day, Stop date: 05/09/14 9:00:00Notes: (Same as: Prinivil, Zestril) No Longer Active 04/09/2014 [place] Amlodipine 10 mg, 2 tab, Route: PO, Drug form: TAB, Daily, Dosing Weight 91.818, kg, Priority: NOW, Start date: 04/09/14 17:04:00, Duration: 30 day, Stop date: 05/09/14 9:00:00Notes: (Same as: Norvasc) No Longer Active 04/09/2014 [place] Clonidine Hydrochloride 0.1 MG Oral Tablet 0.1 mg, 1 tab, Route: PO, Drug form: TAB, Q6H, Dosing Weight 91.818, kg, PRN See Nurse's Notes, Start date: 04/09/14 15:06:00, Duration: 30 day, Stop date: 05/09/14 15:05:00, for SBP>160 or DBP>95Notes: (Same As: Catapres) No Longer Active 04/09/2014 [place] Labetalol 20 mg, 4 mL, Route: IVP, Drug form: INJ, Q6H, Dosing Weight 91.818, kg, PRN See Nurse's Notes, Start date: 04/09/14 15:06:00, Duration: 30 day, Stop date: 05/09/14 15:05:00, for SBP >160 or DBP>95Notes: (Same as: Normodyne, Trandate) Push over 2 minutes Give bolus over 2-3 minutes. No Longer Active 04/09/2014 [place] Acetaminophen 650 mg, 2 tab, Route: PO, Drug form: TAB, Q4H, Dosing Weight 91.818, kg, PRN Pain 1-3/Temp > 100.4 F, Start date: 04/09/14 14:57:00, Duration: 30 day, Stop date: 05/09/14 14:56:00Notes: Do not exceed 4 gm/day. (Same as: Tylenol) No Longer Active 04/09/2014 [place] Sodium Chloride 0.154 MEQ/ML Injectable Solution 500 mL, 500 ml/hr, Infuse Over: 1 hr, Route: IV, ONCE, Priority: STAT, Dosing Weight 91.818 kg, Start date: 04/09/14 13:16:00, Duration: 1 doses or times, Stop date: 04/09/14 13:16:00 Inactive 04/09/2014 [place] Tylenol 1,000 mg, Route: PO, ONCE, Dosing Weight 91.818, kg, Start date: 04/09/14 12:13:00, Stop date: 04/09/14 12:13:00 Inactive 04/09/2014 [place] Hydralazine 20 mg, Route: IVP, ONCE, Dosing Weight 91.818, kg, Priority: STAT, Start date: 04/09/14 11:55:00, Stop date: 04/09/14 11:55:00 Inactive 04/09/2014 [place] Labetalol 20 mg, Route: IVP, Drug form: INJ, ONCE, Dosing Weight 91.818, kg, Priority: STAT, Start date: 04/09/14 10:23:00, Stop date: 04/09/14 10:23:00 Inactive 04/09/2014 [place] Omnipaque 300 150 mL, 600 ml/hr, Route: IV, Drug Form: SOLN, ONCE, Start date: 04/09/14 9:04:00, Stop date: 04/09/14 9:04:00Notes: (Same as:Omnipaque 300). No Longer Active 04/09/2014 [place] Vasotec 1.25 mg, Route: IV, ONCE, Dosing Weight 91.818, kg, Start date: 04/09/14 8:46:00, Stop date: 04/09/14 8:46:00 Inactive 04/09/2014 [place] Hydralazine 20 mg, Route: IVP, ONCE, Dosing Weight 91.818, kg, Priority: STAT, Start date: 04/09/14 7:52:00, Stop date: 04/09/14 7:52:00 Inactive 04/09/2014 [place] Morphine 4 mg, Route: IVP, ONCE, Dosing Weight 91.818, kg, Priority: STAT, Start date: 04/09/14 7:43:00, Stop date: 04/09/14 7:43:00 Inactive 04/09/2014 [place] Ondansetron 4 mg, Route: IVP, ONCE, Dosing Weight 91.818, kg, Priority: STAT, Start date: 04/09/14 7:43:00, Stop date: 04/09/14 7:43:00 Inactive 04/09/2014 [place] Saline Flush 0.9% 10 mL, Route: IVP, Drug Form: INJ, Dosing Weight 91.818, kg, PRN, PRN Line Flush, Start date: 04/09/14 7:43:00, Duration: 30 day, Stop date: 05/09/14 7:42:00Notes: (Same as: BD Posiflush) No Longer Active 04/09/2014 [place] Lisinopril 0 Refill(s) No Longer Active 04/09/2014 [facility] amLODIPine 5 mg oral tablet 10 mg=2 tab, PO, Daily, # 15 tab, 0 Refill(s) Active 09/28/2013 [facility] Aspirin 81 MG Enteric Coated Tablet 81 mg=1 tab, PO, Daily, # 15 tab, 0 Refill(s) Active 09/28/2013 [facility] tramadol hydrochloride 50 MG Oral Tablet [Ultram] 50 mg=1 tab, PO, Q4H, Pain, # 30 tab, 0 Refill(s) Active 09/28/2013 [facility] metoprolol tartrate 25 mg oral tablet 12.5 mg=0.5 tab, PO, Q12H, # 15 tab, 0 Refill(s) Active 09/28/2013 [facility] lisinopril 20 mg oral tablet 40 mg=2 tab, PO, Daily, # 15 tab, 0 Refill(s) Active 09/28/2013 [facility] Lactulose 10 gm, 15 ml, Route: PO, Drug Form: SYRP, Dosing Weight 81.818, kg, Daily, PRN Constipation, Start date: 09/28/13 13:28:00, Duration: 30 day, Stop date: 10/28/13 13:27:00Notes: (Same as:Chronulac) Inactive 09/28/2013 [facility] Prinivil 40 mg, 2 tab, Route: PO, Drug form: TAB, Daily, Start date: 09/28/13 9:00:00, Duration: 30 day, Stop date: 10/27/13 9:00:00Notes: (Same as: Prinivil, Zestril) Inactive 09/28/2013 [facility] Aspirin / Calcium Carbonate 325 mg, 1 tab, Route: PO, Drug form: TAB, Daily, Dosing Weight 81.818, kg, Start date: 09/27/13 19:59:00, Duration: 30 day, Stop date: 10/27/13 9:00:00Notes: Take with food. No Longer Active 09/28/2013 [facility] Ambien 5 mg, 1 tab, Route: PO, Drug form: TAB, Bedtime, Dosing Weight 81.818, kg, PRN as needed for sleep, Start date: 09/27/13 19:51:00, Duration: 30 day, Stop date: 10/27/13 19:50:00Notes: (Same As: Ambien) No Longer Active 09/28/2013 [facility] Senokot 8.6 mg, 1 tab, Route: PO, Drug form: TAB, Daily, Start date: 09/27/13 12:43:00, Duration: 30 day, Stop date: 10/27/13 9:00:00Notes: (Same as: Senokot) No Longer Active 09/27/2013 [facility] Norvasc 10 mg, 2 tab, Route: PO, Drug form: TAB, Daily, Start date: 09/27/13 9:44:00, Duration: 30 day, Stop date: 10/27/13 9:00:00Notes: (Same as: Norvasc) No Longer Active 09/27/2013 [facility] Nicardipine 40 mg, 200 mL, Rate: Titrate, Dosing Weight 81.818, kg, Route: IV, Total Volume: 200 mL, Start Date: 09/27/13 9:18:00, Duration: 30 day, Stop date: 10/27/13 9:17:00, Replace Every: 24 hrNotes: Same a s: Cardene Concentration: (0.2 mg /1 ml ) No Longer Active 09/27/2013 [facility] Amlodipine 10 MG / Benazepril hydrochloride 40 MG Oral Capsule [Lotrel 10/40] 1 cap, Route: PO, Dosing Weight 81.818, kg, Daily, Start date: 09/27/13 9:00:00, Duration: 30 day, Stop date: 10/26/13 9:00:00 Inactive 09/27/2013 [facility] sennosides, SKILLED NURSING 8.6 mg, 1 tab, Route: PO, Drug Form: TAB, Dosing Weight 81.818, kg, Daily, Start date: 09/27/13 9:00:00, Duration: 30 day, Stop date: 10/26/13 9:00:00Notes: (Same as: Senokot) Inactive 09/27/2013 [facility] Docusate Sodium 100 MG Oral Capsule [Colace] 100 mg, 1 cap, Route: PO, Drug form: CAP, BID, Dosing Weight 81.818, kg, Start date: 09/27/13 9:00:00, Duration: 30 day, Stop date: 10/26/13 17:00:00Notes: (Same as: Colace) (Do Not Crush) No Longer Active 09/27/2013 [facility] metoprolol tartrate 12.5 mg, 0.5 tab, Route: PO, Drug form: TAB, Q12H, Dosing Weight 81.818, kg, Start date: 09/27/13 9:00:00, Stop date: 10/26/13 21:00:00Notes: (Same as: Lopressor) No Longer Active 09/27/2013 [facility] tramadol hydrochloride 50 MG Oral Tablet [Ultram] 50 mg, 1 tab, Route: PO, Drug form: TAB, Q4H, Dosing Weight 81.818, kg, PRN Pain, Start date: 09/27/13 8:56:00, Stop date: 10/27/13 8:55:00Notes: Not to exceed 400mg/day. (Same As: Ultram) No Longer Active 09/27/2013 [facility] Morphine 1 mg, 0.5 mL, Route: IV, Drug form: INJ, Q4H, Dosing Weight 81.818, kg, PRN Chest Pain, Start date: 09/27/13 8:56:00, Duration: 30 day, Stop date: 10/27/13 8:55:00Notes: (Same as:MORPhine Sulfate) No Longer Active 09/27/2013 [facility] Zofran 4 mg, 2 mL, Route: IV, Drug form: INJ, Q8H, Dosing Weight 81.818, kg, PRN Nausea, Start date: 09/27/13 8:56:00, Duration: 30 day, Stop date: 10/27/13 8:55:00Notes: (Same as: Zofran) No Longer Active 09/27/2013 [facility] Cardene 40 mg in NS 200 ml IV 40 mg 40 mg, 200 mL, Rate: Titrate, Dosing Weight 81.818, kg, Route: IV, Total Volume: 200 mL, Start Date: 09/27/13 4:03:00, Duration: 30 day, Stop date: 10/27/13 4:02:00, Replace Every: 24 hrNotes: Same as: Cardene Concentration: (0.2 mg /1 ml ) Inactive 09/27/2013 [place] Labetalol 20 mg, 4 mL, Route: IVP, Drug form: INJ, ONCE, Dosing Weight 81.818, kg, Priority: STAT, Start date: 09/27/13 3:43:00, Stop date: 09/27/13 3:43:00Notes: (Same as: Normodyne, Trandate) Push over 2 minutes Give bolus over 2-3 minutes. Inactive 09/27/2013 [place] Clonidine Hydrochloride 0.2 MG Oral Tablet 0.2 mg, Route: PO, Drug form: TAB, ONCE, Dosing Weight 81.818, kg, Priority: STAT, Start date: 09/27/13 2:36:00, Stop date: 09/27/13 2:36:00 Inactive 09/27/2013 [place] Dilaudid 0.5 mg, 0.25 mL, Route: IV, Drug form: INJ, ONCE, Dosing Weight 81.818, kg, Priority: STAT, Start date: 09/27/13 2:08:00, Stop date: 09/27/13 2:08:00Notes: (Same as: Dilaudid) Inactive 09/27/2013 [place] Clonidine Hydrochloride 0.2 MG Oral Tablet 0.2 mg, 2 tab, Route: PO, Drug form: TAB, ONCE, Dosing Weight 81.818, kg, Priority: STAT, Start date: 09/27/13 1:58:00, Stop date: 09/27/13 1:58:00Notes: (Same As: Catapres) Inactive 09/27/2013 [place] Omnipaque 300 100 mL, 100 ml/hr, Route: IV, Drug Form: SOLN, ONCE, Start date: 09/27/13 1:42:00, Stop date: 09/27/13 1:42:00Notes: (Same as:Omnipaque 300). Inactive 09/27/2013 [place] Ativan 1 mg, Route: IVP, Drug form: INJ, ONCE, Dosing Weight 81.818, kg, Priority: STAT, Start date: 09/26/13 23:38:00, Stop date: 09/26/13 23:38:00 Inactive 09/27/2013 [place] Ondansetron 4 mg, 2 mL, Route: IVP, Drug form: INJ, ONCE, Dosing Weight 81.818, kg, Priority: STAT, Start date: 09/26/13 23:16:00, Stop date: 09/26/13 23:16:00Notes: (Same as: Zofran) Inactive 09/27/2013 [place] pantoprazole 40 mg, Route: IVP, Drug form: INJ, ONCE, Dosing Weight 81.818, kg, For IV push reconstitute with 10 ml 0.9% sodium chloride and push over at least 3 minutes, Priority: STAT, Start date: 09/26/13 23:16:00, Stop date: 09/26/13 23:16:00Notes: For IV push reconstitute with 10 ml 0.9% sodium chloride and push over 2 minutes. (Same as: Protonix) Inactive 09/27/2013 [facility] GI cocktail 30 mL, Route: PO, Drug Form: SUSP, Dosing Weight 81.818, kg, ONCE, STAT, Start date: 09/26/13 23:16:00, Stop date: 09/26/13 23:16:00Notes: G.I. Cocktail=antacid with simethicone 22.5 mL - lidocaine v iscous 7.5 mL Inactive 09/27/2013 [facility] Morphine 4 mg, 2 mL, Route: IVP, Drug form: INJ, ONCE, Dosing Weight 81.818, kg, Priority: STAT, Start date: 09/26/13 23:16:00, Stop date: 09/26/13 23:16:00Notes: (Same as:MORPhine Sulfate) Inactive 09/27/2013 [place] Sodium Chloride 0.154 MEQ/ML Injectable Solution 1,000 mL, 1000 ml/hr, Infuse Over: 1 hr, Route: IV, 1,000, Drug form: INJ, ONCE, Priority: STAT, Dosing Weight 81.818 kg, Start date: 09/26/13 23:16:00, Duration: 1 doses or times, Stop date: 09/26/13 23:16:00 Inactive 09/27/2013 [place] Saline Flush 0.9% 5 mL, Route: IVP, Drug Form: INJ, Dosing Weight 81.818, kg, PRN, PRN Line Flush, Start date: 09/26/13 23:16:00, Duration: 24 hr, Stop date: 09/27/13 23:15:00Notes: (Same as: BD Posiflush) No Longer Active 09/27/2013 [place] hydrALAZINE 20 mg, 1 mL, Route: IVP, Drug form: INJ, ONCE, Priority: STAT, Start date: 09/09/11 15:57:00, Stop date: 09/09/11 15:57:00 IVP Active [place] 09/09/2011 [place] clonidine 0.1 mg, Route: PO, Drug form: TAB, ONCE, Priority: STAT, Start date: 09/09/11 15:14:00, Stop date: 09/09/11 15:14:00 PO No Longer Active [place] 09/09/2011 [place] clonidine 0.1 mg, Route: PO, Drug form: TAB, ONCE, Priority: STAT, Start date: 09/09/11 15:08:00, Stop date: 09/09/11 15:08:00 PO No Longer Active [place] 09/09/2011 [place] Dows 5/325 oral tablet 1-2 tab, PO, Q6H, PRN, 30 tab, Pain, Substitution Allowed, Maintenance PO Active [place] 09/09/2011 [place] Zegerid OTC oral capsule See Instructions, 30 doses or times, Substitution Allowed, Maintenance, PO DailyPO Daily Active [place] 09/09/2011 [place] Zantac 150 oral tablet 150 mg, 1 tab, PO, BID, 30 tab, Substitution Allowed PO Active [place] 09/09/2011 [place] Carafate 1 g/10 mL oral suspension 1 gm, 10 ml, PO, Before Meals & Bedtime, 200 ml, Substitution Allowed PO Active [place] 09/09/2011 [place] clonidine 0.1 mg, 1 tab, Route: PO, Drug form: TAB, ONCE, Priority: STAT, Start date: 09/09/11 14:22:00, Stop date: 09/09/11 14:22:00 PO No Longer Active [place] 09/09/2011 [place] morphine Sulfate 4 mg, 2 mL, Route: IVP, Drug form: INJ, ONCE, Priority: STAT, Start date: 09/09/11 13:14:00, Stop date: 09/09/11 13:14:00 IVP No Longer Active [place] 09/09/2011 [place] ondansetron 4 mg, 2 mL, Route: IVP, Drug form: INJ, ONCE, Priority: STAT, Start date: 09/09/11 13:14:00, Stop date: 09/09/11 13:14:00 IVP No Longer Active [place] 09/09/2011 [place] NS (Bolus) IV 1,000 mL 1,000 mL, Rate: 1,000 ml/hr, Infuse over: 1 hr, Route: IV, Dosing Weight 85.909 kg, Total Volume: 1,000, Priority: STAT, Start date: 09/09/11 12:48:00, Duration: 1 doses or times, Stop date: 09/09/11 13:47:00, Bolus DoseBolus Dose IV No Longer Active [place] 09/09/2011 [place] Carafate 1 g/10 mL oral suspension 1 gm, 10 mL, Route: PO, Drug form: SUSP, ONCE, Start date: 09/09/11 12:29:00, Stop date: 09/09/11 12:29:00 PO No Longer Active [place] 09/09/2011 [place] Saline Flush 0.9% 5 ml, Route: IVP, Drug Form: INJ, PRN, PRN Line Flush, Start date: 09/09/11 12:29:00, Duration: 30 day, Stop date: 10/09/11 12:28:00 IVP No Longer Active [place] 09/09/2011 [place] Norvasc 10 mg, 2 tab, Route: PO, Drug form: TAB, ONCE, Start date: 03/17/11 11:30:00, Stop date: 03/17/11 11:30:00 PO No Longer Active [place] 03/17/2011 [facility] Prinivil 40 mg, 2 tab, Route: PO, Drug form: TAB, ONCE, Start date: 03/17/11 11:30:00, Stop date: 03/17/11 11:30:00 PO No Longer Active [facility] 03/17/2011 [facility] clonidine 0.1 mg oral tablet 0.1 mg, 1 tab, Route: PO, Drug form: TAB, Q6H, PRN Elevated BP, Start date: 03/17/11 10:58:00, Duration: 30 day, Stop date: 04/16/11 10:57:00 PO No Longer Active [facility] 03/17/2011 [facility] Benicar 20 mg, 1 tab, Route: PO, Drug form: TAB, Daily, Start date: 03/17/11 10:45:00, Duration: 30 day, Stop date: 04/16/11 9:00:00 PO No Longer Active [facility] 03/17/2011 [facility] BD Normal Saline Flush 10 mL, Route: IV, Drug Form: INJ, Q8H, Start date: 03/17/11 8:00:00, Duration: 30 day, Stop date: 04/16/11 0:00:00 IV No Longer Active [facility] 03/17/2011 [facility] nitroglycerin 2% topical ointment 1 inch, Route: TOP, Drug form: OINT, TID, Start date: 03/17/11 6:00:00, Duration: 30 day, Stop date: 04/15/11 18:00:00 TOP No Longer Active [facility] 03/17/2011 [facility] aspirin 325 mg tablet 325 mg, 1 tab, Route: PO, Drug form: TAB, ONCE, Start date: 03/17/11 5:30:00, Stop date: 03/17/11 5:30:00 PO No Longer Active [facility] 03/17/2011 [facility] atropine 1 mg, 10 mL, Route: IVP, Drug form: INJ, Q5Min, PRN Other -See Comment, Start date: 03/17/11 5:15:00, Duration: 30 day, Stop date: 04/16/11 5:14:00 IVP No Longer Active [place] 03/17/2011 [facility] nitroglycerin 0.4 mg sublingual tablet 0.4 mg, 1 tab, Route: SL, Drug form: TAB, PRN, PRN Chest Pain, Start date: 03/17/11 5:15:00, Duration: 30 day, Stop date: 04/16/11 5:14:00 SL No Longer Active [place] 03/17/2011 [facility] epinephrine 1 mg, 10 mL, Route: IVP, Drug form: INJ, Q5Min, PRN Asystole, Start date: 03/17/11 5:15:00, Duration: 30 day, Stop date: 04/16/11 5:14:00 IVP No Longer Active [place] 03/17/2011 [facility] Cordarone 150 mg, 3 mL, Route: IVPB, PRN, PRN See Nurse's Notes, Start date: 03/17/11 5:14:00, Duration: 30 day, Stop date: 04/16/11 5:13:00 IVPB No Longer Active [place] 03/17/2011 [facility] Sodium Chloride 0.9% IV 25 mL, Route: IV, PRN, Line Flush, Start date: 03/17/11 5:12:00, Duration: 30 day, Stop date: 04/16/11 5:11:00 IV No Longer Active [facility] 03/17/2011 [facility] BD Normal Saline Flush 10 mL, Route: IV, Drug Form: INJ, PRN, PRN Line Flush, Start date: 03/17/11 5:12:00, Duration: 30 day, Stop date: 04/16/11 5:11:00 IV No Longer Active [facility] 03/17/2011 [facility] Zofran 4 mg, 2 mL, Route: IV, Drug form: INJ, Q8H, PRN Nausea & Vomiting, Start date: 03/17/11 5:08:00, Duration: 30 day, Stop date: 04/16/11 5:07:00 IV No Longer Active [facility] 03/17/2011 [facility] morphine Sulfate 4 mg, 1 mL, Route: IV, Drug form: INJ, Q2H, PRN Pain Score 7-10, Start date: 03/17/11 5:08:00, Duration: 30 day, Stop date: 04/16/11 5:07:00 IV No Longer Active [facility] 03/17/2011 [facility] Vasotec 2.5 mg, 2 mL, Route: IV, Drug form: INJ, Q6H, PRN Other -See Comment, Start date: 03/17/11 5:07:00, Duration: 30 day, Stop date: 04/16/11 5:06:00 IV No Longer Active [facility] 03/17/2011 [facility] hydrALAZINE 20 mg, 1 mL, Route: IV, Drug form: INJ, Q8H, PRN Elevated BP, Start date: 03/17/11 5:05:00, Duration: 30 day, Stop date: 04/16/11 5:04:00 IV No Longer Active [facility] 03/17/2011 [facility] enalapril 1.25 mg, Route: IVP, ONCE, Priority: STAT, Start date: 03/17/11 2:52:00, Stop date: 03/17/11 2:52:00 IVP No Longer Active [facility] 03/17/2011 [facility] morphine Sulfate 4 mg, Route: IVP, ONCE, Priority: STAT, Start date: 03/17/11 1:33:00, Stop date: 03/17/11 1:33:00 IVP No Longer Active [facility] 03/17/2011 [facility] ondansetron 4 mg, Route: IVP, Drug form: INJ, ONCE, Priority: STAT, Start date: 03/17/11 1:33:00, Stop date: 03/17/11 1:33:00 IVP No Longer Active [facility] 03/17/2011 [facility] hydrALAZINE 10 mg, Route: IVP, ONCE, Priority: STAT, Start date: 03/17/11 1:32:00, Stop date: 03/17/11 1:32:00 IVP No Longer Active [facility] 03/17/2011 [facility] hydrALAZINE 10 mg, Route: IVP, ONCE, Priority: STAT, Start date: 03/17/11 1:07:00, Stop date: 03/17/11 1:07:00 IVP No Longer Active [facility] 03/17/2011 [facility] nitroglycerin 2% ointment 1 inch, Route: TOP, Drug Form: OINT, ONCE, STAT, Start date: 03/17/11 0:36:00, Stop date: 03/17/11 0:36:00 TOP No Longer Active [facility] 03/17/2011 [facility] Saline Flush 0.9% 5 ml, Route: IVP, Drug Form: INJ, PRN, PRN Line Flush, Start date: 03/17/11 0:11:00, Duration: 30 day, Stop date: 04/16/11 0:10:00 IVP No Longer Active [facility] 03/17/2011 [facility] Allergies, Adverse Reactions, Alerts No Known Medication Allergies Immunizations No Data Provided for This Section Results Order Name Results Value Reference Range Date Interpretation Comments Source CARDIAC ENZYMES Troponin-I <0.02 0.00 - 0.40 09/14/2017 [facility] CARDIAC ENZYMES Total CK 213 12 - 191 09/14/2017 [facility] CARDIAC ENZYMES CK MB 1.0 0.5 - 3.6 09/14/2017 [facility] CARDIAC ENZYMES CK MB Index 0.5 0.0 - 2.5 09/14/2017 [facility] [facility] CARDIAC ENZYMES proBNP 88 0 - 125 09/14/2017 [facility] CHEM PANEL Lipase Lvl 143 73 - 393 09/14/2017 [facility] A/G Ratio 0.8 0.7 - 1.6 09/14/2017 [facility] CHEM PANEL Albumin Lvl 3.9 3.5 - 5.0 09/14/2017 [facility] Total Protein 8.5 6.4 - 8.4 09/14/2017 [facility] CHEM PANEL Alk Phos 74 39 - 136 09/14/2017 [facility] CHEM PANEL AST 19 0 - 37 09/14/2017 [facility] CHEM PANEL ALT 18 0 - 65 09/14/2017 [facility] Bili Total 0.5 0.2 - 1.3 09/14/2017 [facility] CHEM PANEL Globulin 4.6 2.7 - 4.2 09/14/2017 [facility] CHEM PANEL eGFR 87 09/14/2017 Result Comment: The eGFR is calculated [...] should be multiplied by the estimated BMI. [facility] CHEM PANEL B/C Ratio 10 6 - 25 09/14/2017 [facility] CHEM PANEL BUN 13 7 - 22 09/14/2017 [facility] CHEM PANEL Creatinine Lvl 1.27 0.50 - 1.40 09/14/2017 [facility] CHEM PANEL Sodium Lvl 139 135 - 145 09/14/2017 [facility] CHEM PANEL Potassium Lvl 3.7 3.5 - 5.1 09/14/2017 [facility] CHEM PANEL Glucose Lvl 96 70 - 99 09/14/2017 [facility] CHEM PANEL AGAP 9.7 10.0 - 20.0 09/14/2017 [facility] CHEM PANEL Calcium Lvl 9.3 8.5 - 10.5 09/14/2017 [facility] CHEM PANEL CO2 29 24 - 32 09/14/2017 [facility] CHEM PANEL Chloride Lvl 104 95 - 109 09/14/2017 [facility] DRUG SCREEN UDS Note See Note *NA* (09/14/17 3:15 PM) 09/14/2017 [facility] DRUG SCREEN U Amph Scr Negative *NA* (09/14/17 3:15 PM) Negative 09/14/2017 [facility] DRUG SCREEN U Cannab Scr Negative *NA* (09/14/17 3:15 PM) Negative 09/14/2017 [facility] DRUG SCREEN U Benzodia Scr Negative *NA* (09/14/17 3:15 PM) Negative 09/14/2017 [facility] DRUG SCREEN U [place] Scr Negative *NA* (09/14/17 3:15 PM) Negative 09/14/2017 [facility] DRUG SCREEN U Cocaine Scr Negative *NA* (09/14/17 3:15 PM) Negative 09/14/2017 [facility] DRUG SCREEN U Opiate Scr Negative *NA* (09/14/17 3:15 PM) Negative 09/14/2017 [facility] DRUG SCREEN U Phencyc Scr Negative *NA* (09/14/17 3:15 PM) Negative 09/14/2017 [facility] HEMATOLOGY MPV 7.4 7.4 - 10.4 09/14/2017 [facility] HEMATOLOGY RDW 13.3 11.5 - 14.5 09/14/2017 [facility] HEMATOLOGY MCH 26.2 27.0 - 31.0 09/14/2017 [facility] HEMATOLOGY MCHC 32.3 32.0 - 36.0 09/14/2017 [facility] HEMATOLOGY RBC 5.28 4.70 - 6.10 09/14/2017 [facility] HEMATOLOGY MCV 81.1 80.0 - 94.0 09/14/2017 [facility] HEMATOLOGY Platelet 339 133 - 450 09/14/2017 [facility] HEMATOLOGY Hgb 13.8 14.0 - 18.0 09/14/2017 [facility] HEMATOLOGY Hct 42.8 42.0 - 54.0 09/14/2017 [facility] HEMATOLOGY WBC 8.2 3.7 - 10.4 09/14/2017 [facility] HEMATOLOGY Lymphocytes # 1.5 1.0 - 5.5 09/14/2017 [facility] HEMATOLOGY Segs-Bands # 5.8 1.5 - 8.1 09/14/2017 [facility] Lymphocytes 18.5 20.0 - 40.0 09/14/2017 [facility] HEMATOLOGY Basophils # 0.1 0.0 - 0.2 09/14/2017 [facility] HEMATOLOGY Eosinophils # 0.2 0.0 - 0.5 09/14/2017 [facility] HEMATOLOGY Monocytes # 0.6 0.0 - 0.8 09/14/2017 [facility] HEMATOLOGY Basophils 0.8 0.0 - 1.0 09/14/2017 [facility] HEMATOLOGY Eosinophils 2.2 0.0 - 4.0 09/14/2017 [facility] HEMATOLOGY Monocytes 7.8 2.0 - 12.0 09/14/2017 [facility] HEMATOLOGY Segs 70.7 45.0 - 75.0 09/14/2017 [facility] URINE AND STOOL UA Bili Negative *NA* (09/14/17 3:15 PM) Negative 09/14/2017 [facility] URINE AND STOOL UA Blood Negative (09/14/17 3:15 PM) Negative 09/14/2017 [facility] URINE AND STOOL UA Leuk Est Negative (09/14/17 3:15 PM) Negative 09/14/2017 [facility] URINE AND STOOL UA WBC 0-2 /HPF None Seen /HPF 09/14/2017 [facility] URINE AND STOOL UA Sq Epi None Seen (09/14/17 3:15 PM) Few 09/14/2017 [place] URINE AND STOOL UA Urobilinogen 0.2 0.1 - 1.0 09/14/2017 [facility] URINE AND STOOL UA Nitrite Negative (09/14/17 3:15 PM) Negative 09/14/2017 [facility] URINE AND STOOL UA Protein Trace *ABN* (09/14/17 3:15 PM) Negative 09/14/2017 [facility] URINE AND STOOL UA Glucose Negative (09/14/17 3:15 PM) Negative 09/14/2017 [facility] URINE AND STOOL UA Ketones Trace *ABN* (09/14/17 3:15 PM) Negative 09/14/2017 [facility] URINE AND STOOL UA pH 6.0 5.0 - 8.0 09/14/2017 [facility] URINE AND STOOL UA Spec Grav >=1.030 *ABN* (09/14/17 3:15 PM) <=1.030 09/14/2017 [facility] URINE AND STOOL UA Color Yellow *NA* (09/14/17 3:15 PM) Yellow 09/14/2017 [facility] URINE AND STOOL UA Turbidity Clear (09/14/17 3:15 PM) Clear 09/14/2017 [facility] MOLECULAR DIAGNOSTIC C difficile DNA Positive 8, 9 *ABN* (04/10/14 10:30 AM) Negative 04/10/2014 <sup>8</sup>Result Comment: "Significant Findings called to Laya Garay at 04/10/2014 23:39 by SBA.Read Back OK."
<sup>9</sup>Interpretive Data: [employer] illum[employer]ene Clostridium difficile assay utilizes loop-mediated isothermal DNA amplification (LAMP) technology to detect a 204 bp region of the tcdA gene within the PaLoc gene segment present in all known toxigenic C. difficile strains.

The assay utilizes FDA cleared IVD reagents. Performance characteristics have been verified by the Molecular Diagnostic Laboratory within the [facility]. The Molecular Diagnostic Laboratory is authorized under the Clinical Laboratory Improvement Amendment of 1988 (CLIA-88) to perform high complexity testing. [place] CHEM PANEL Creatinine Lvl 1.2 0.5 - 1.4 04/10/2014 [place] CHEM PANEL BUN 12 7 - 22 04/10/2014 [place] CHEM PANEL AGAP 12.9 10.0 - 20.0 04/10/2014 [place] CHEM PANEL Calcium Lvl 9.0 8.5 - 10.5 04/10/2014 [place] CHEM PANEL Potassium Lvl 3.9 3.5 - 5.1 04/10/2014 [place] CHEM PANEL Chloride Lvl 105 95 - 109 04/10/2014 [place] CHEM PANEL CO2 25 24 - 32 04/10/2014 [place] CHEM PANEL Sodium Lvl 139 135 - 145 04/10/2014 [place] CHEM PANEL Glucose Lvl 105 70 - 99 04/10/2014 <sup>3</sup>Interpretive Data: Adult reference range values reflect the clinical guidelines
of the [place] [employer]. [place] CHEM PANEL eGFR 95 04/10/2014 <sup>1</sup>Result Comment: The eGFR is calculated using the CKD-EPI formula. In most young, healthy individuals the eGFR will be >90 mL/min/1.73m2. The eGFR declines with age. An eGFR of 60-89 may be normal in some populations, particularly the elderly, for whom the CKD-EPI formula has not been extensively validated. Use of the eGFR is not recommended in the following populations:& lt;br/>
Individuals with unstable creatinine concentrations, including patients [...] should be multiplied by the estimated BMI. [place] SPECIAL CHEMISTRY Hgb A1C 4.8 <=5.6 % 04/10/2014 [place] DRUG SCREEN U Amph Scr Negative *NA* (04/09/14 10:15 AM) Negative 04/09/2014 [place] DRUG SCREEN U [place] Scr Negative *NA* (04/09/14 10:15 AM) Negative 04/09/2014 [place] DRUG SCREEN U Benzodia Scr Negative *NA* (04/09/14 10:15 AM) Negative 04/09/2014 [place] DRUG SCREEN U Cocaine Scr Negative *NA* (04/09/14 10:15 AM) Negative 04/09/2014 [place] DRUG SCREEN U Cannab Scr Negative *NA* (04/09/14 10:15 AM) Negative 04/09/2014 [place] DRUG SCREEN U Opiate Scr Positive *ABN* (04/09/14 10:15 AM) Negative 04/09/2014 [place] DRUG SCREEN UDS Note See Note 5 (04/09/14 10:15 AM) 04/09/2014 <sup>5</sup>Interpretive Data: Drugs reported as positive have not [...]
Methadone 300 ng/mL
Urine alcohol 20 mg/dL [place] DRUG SCREEN U Phencyc Scr Negative *NA* (04/09/14 10:15 AM) Negative 04/09/2014 [place] URINE AND STOOL UA WBC 0-2 /HPF None Seen /HPF 04/09/2014 [place] URINE AND STOOL UA RBC 0-2 /HPF 0 - 2 04/09/2014 [place] URINE AND STOOL UA Bacteria Occasional /HPF None Seen /HPF 04/09/2014 [place] URINE AND STOOL UA Sq Epi Few /LPF Few /LPF 04/09/2014 [place] URINE AND STOOL UA pH 6.5 5.0 - 8.0 04/09/2014 [place] URINE AND STOOL UA Protein Negative mg/dL Negative mg/dL 04/09/2014 [place] URINE AND STOOL UA Glucose Negative mg/dL Negative mg/dL 04/09/2014 [place] URINE AND STOOL UA Spec Grav 1.010 <=1.030 04/09/2014 [place] URINE AND STOOL UA Turbidity Clear (04/09/14 10:15 AM) Clear 04/09/2014 [place] URINE AND STOOL UA Bili Negative *NA* (04/09/14 10:15 AM) Negative 04/09/2014 [place] URINE AND STOOL UA Blood Negative (04/09/14 10:15 AM) Negative 04/09/2014 [place] URINE AND STOOL UA Nitrite Negative (04/09/14 10:15 AM) Negative 04/09/2014 [place] URINE AND STOOL UA Leuk Est Negative (04/09/14 10:15 AM) Negative 04/09/2014 [place] URINE AND STOOL UA Ketones Negative mg/dL Negative mg/dL 04/09/2014 [place] URINE AND STOOL UA Color Yellow *NA* (04/09/14 10:15 AM) Yellow 04/09/2014 [place] URINE AND STOOL UA Urobilinogen 0.2 0.1 - 1.0 04/09/2014 [place] CARDIAC ENZYMES CK MB Index 0.6 0.0 - 2.5 04/09/2014 [place] CARDIAC ENZYMES Total CK 219 12 - 191 04/09/2014 [place] CARDIAC ENZYMES CK MB 1.3 0.5 - 3.6 04/09/2014 [facility] CARDIAC ENZYMES Troponin-I <0.02 0.00 - 0.40 04/09/2014 [facility] CHEM PANEL eGFR 106 04/09/2014 <sup>2</sup>Result Comment: The eGFR is calculated using the CKD-EPI formula. In most young, healthy individuals the eGFR will be >90 mL/min/1.73m2. The eGFR declines with age. An eGFR of 60-89 may be normal in some populations, particularly the elderly, for whom the CKD-EPI formula has not been extensively validated. Use of the eGFR is not recommended in the following populations:& lt;br/>
Individuals with unstable creatinine concentrations, including patients [...] should be multiplied by the estimated BMI. [place] CHEM PANEL Globulin 3.9 2.0 - 4.0 04/09/2014 [place] CHEM PANEL A/G Ratio 1.1 0.7 - 1.6 04/09/2014 [place] CHEM PANEL Alk Phos 51 39 - 136 04/09/2014 [place] CHEM PANEL Bili Total 0.6 0.2 - 1.3 04/09/2014 [place] CHEM PANEL AGAP 12.2 10.0 - 20.0 04/09/2014 [place] CHEM PANEL B/C Ratio 15 6 - 25 04/09/2014 [place] CHEM PANEL Albumin Lvl 4.3 3.5 - 5.0 04/09/2014 [place] CHEM PANEL AST 25 0 - 37 04/09/2014 [place] CHEM PANEL ALT 40 0 - 65 04/09/2014 [place] CHEM PANEL CO2 25 24 - 32 04/09/2014 [place] CHEM PANEL Total Protein 8.2 6.4 - 8.4 04/09/2014 [place] CHEM PANEL Calcium Lvl 9.4 8.5 - 10.5 04/09/2014 [place] CHEM PANEL Sodium Lvl 138 135 - 145 04/09/2014 [place] CHEM PANEL Potassium Lvl 4.2 3.5 - 5.1 04/09/2014 [place] CHEM PANEL Chloride Lvl 105 95 - 109 04/09/2014 [place] CHEM PANEL Glucose Lvl 104 70 - 99 04/09/2014 <sup>4</sup>Interpretive Data: Adult reference range values reflect the clinical guidelines
of the [place] [employer]. [place] CHEM PANEL Creatinine Lvl 1.1 0.5 - 1.4 04/09/2014 [place] CHEM PANEL BUN 16 7 - 22 04/09/2014 [place] CHEM PANEL Amylase Lvl 50 25 - 115 04/09/2014 [place] CHEM PANEL Lipase Lvl 126 73 - 393 04/09/2014 [place] HEMATOLOGY Basophils 0.4 0.0 - 1.0 04/09/2014 [place] HEMATOLOGY Eosinophils 3.5 0.0 - 4.0 04/09/2014 [place] HEMATOLOGY Monocytes # 0.4 0.0 - 0.8 04/09/2014 [place] HEMATOLOGY Basophils # 0.0 0.0 - 0.2 04/09/2014 [place] HEMATOLOGY Eosinophils # 0.2 0.0 - 0.5 04/09/2014 [place] HEMATOLOGY Lymphocytes # 1.1 1.0 - 5.5 04/09/2014 [place] HEMATOLOGY Segs-Bands # 4.9 1.5 - 8.1 04/09/2014 [place] HEMATOLOGY Plt Morph Normal (04/09/14 8:00 AM) [facility] RBC Morph Normal (04/09/14 8:00 AM) 04/09/2014 [place] HEMATOLOGY Monocytes 5.8 2.0 - 12.0 04/09/2014 [place] HEMATOLOGY Lymphocytes 17.2 20.0 - 40.0 04/09/2014 [place] HEMATOLOGY Segs 73.1 45.0 - 75.0 04/09/2014 [place] HEMATOLOGY MPV 8.1 7.4 - 10.4 04/09/2014 [facility] HEMATOLOGY Platelet 310 133 - 450 04/09/2014 [facility] HEMATOLOGY MCH 27.2 27.0 - 31.0 04/09/2014 [place] HEMATOLOGY RDW 12.4 11.5 - 14.5 04/09/2014 [place] HEMATOLOGY MCHC 32.7 32.0 - 36.0 04/09/2014 [facility] WBC 6.7 3.7 - 10.4 04/09/2014 [facility] HEMATOLOGY RBC 5.32 4.70 - 6.10 04/09/2014 [place] HEMATOLOGY Hgb 14.5 14.0 - 18.0 04/09/2014 [facility] Hct 44.2 42.0 - 54.0 04/09/2014 [place] HEMATOLOGY MCV 83.2 80.0 - 94.0 04/09/2014 [facility] INR 0.94 0.85 - 1.17 04/09/2014 <sup>6</sup>Interpretive Data: RECOMMENDED RANGES FOR PROTIME INR:
2.0-3.0 for most medical and surgical thromboembolic states.
2.5-3.5 for artificial heart valves and recurrent embolism.

INR SHOULD BE USED ONLY FOR PATIENTS ON STABLE ANTICOAGULANT THERAPY. [place] HEMATOLOGY PTT 33.0 22.9 - 35.8 04/09/2014 <sup>7</sup>Interpretive Data: Heparin Therapeutic Range: 57 - 92 Seconds [facility] HEMATOLOGY PT 12.5 12.0 - 14.7 04/09/2014 [facility] CHEM PANEL Phosphorus 4.1 2.5 - 4.5 09/28/2013 [facility] CHEM PANEL Magnesium Lvl 2.1 1.8 - 2.4 09/28/2013 [facility] ELECTROLYTES AGAP 12.2 10.0 - 20.0 09/28/2013 [facility] ELECTROLYTES eGFR 96 09/28/2013 <sup>1</sup>Result Comment: The eGFR is calculated using the CKD-EPI formula. In most young, healthy individuals the eGFR will be >90 mL/min/1.73m2. The eGFR declines with age. An eGFR of 60-89 may be normal in some populations, particularly the elderly, for whom the CKD-EPI formula has not been extensively validated. Use of the eGFR is not recommended in the following populations:& lt;br/>
Individuals with unstable creatinine concentrations, including patients [...] should be multiplied by the estimated BMI. [facility] ELECTROLYTES Glucose Lvl 94 70 - 99 09/28/2013 <sup>2</sup>Interpretive Data: Adult reference range values reflect the clinical guidelines
of the [place] [employer]. [facility] ELECTROLYTES BUN 17 7 - 22 09/28/2013 [facility] ELECTROLYTES Potassium Lvl 4.2 3.5 - 5.1 09/28/2013 [facility] ELECTROLYTES Creatinine Lvl 1.2 0.5 - 1.4 09/28/2013 [facility] ELECTROLYTES Chloride Lvl 102 95 - 109 09/28/2013 [facility] ELECTROLYTES CO2 28 24 - 32 09/28/2013 [facility] ELECTROLYTES Calcium Lvl 8.6 8.5 - 10.5 09/28/2013 [facility] ELECTROLYTES Sodium Lvl 138 135 - 145 09/28/2013 [facility] HEMATOLOGY Basophils # 0.0 0.0 - 0.2 09/28/2013 [facility] HEMATOLOGY Basophils 0.4 0.0 - 1.0 09/28/2013 [facility] Segs-Bands # 2.5 1.5 - 8.1 09/28/2013 [facility] Eosinophils 5.4 0.0 - 4.0 09/28/2013 [facility] Lymphocytes # 1.8 1.0 - 5.5 09/28/2013 [facility] Monocytes # 0.6 0.0 - 0.8 09/28/2013 [facility] Eosinophils # 0.3 0.0 - 0.5 09/28/2013 [facility] Lymphocytes 34.5 20.0 - 40.0 09/28/2013 [facility] Monocytes 11.0 2.0 - 12.0 09/28/2013 [facility] Segs 48.7 45.0 - 75.0 09/28/2013 [facility] PTT 32.0 22.9 - 35.8 09/28/2013 <sup>5</sup>Interpretive Data: Heparin Therapeutic Range: 57 - 92 Seconds [facility] RBC 5.01 4.70 - 6.10 09/28/2013 [facility] Hgb 13.4 14.0 - 18.0 09/28/2013 [facility] Hct 42.2 42.0 - 54.0 09/28/2013 [facility] MCV 84.2 80.0 - 94.0 09/28/2013 [facility] MCH 26.7 27.0 - 31.0 09/28/2013 [facility] Platelet 260 133 - 450 09/28/2013 [facility] MPV 7.9 7.4 - 10.4 09/28/2013 [facility] MCHC 31.7 32.0 - 36.0 09/28/2013 [facility] RDW 12.6 11.5 - 14.5 09/28/2013 [facility] WBC 5.2 3.7 - 10.4 09/28/2013 [facility] PT 12.8 12.0 - 14.7 09/28/2013 [facility] INR 0.97 0.85 - 1.17 09/28/2013 <sup>4</sup>Interpretive Data: RECOMMENDED RANGES FOR PROTIME INR:
2.0-3.0 for most medical and surgical thromboembolic states.
2.5-3.5 for artificial heart valves and recurrent embolism.

INR SHOULD BE USED ONLY FOR PATIENTS ON STABLE ANTICOAGULANT THERAPY. [facility] CARDIAC ENZYMES CK MB Index 0.5 0.0 - 2.5 09/27/2013 [facility] CARDIAC ENZYMES CK MB 1.1 0.5 - 3.6 09/27/2013 [facility] CARDIAC ENZYMES Troponin-I <0.02 0.00 - 0.40 09/27/2013 [facility] CARDIAC ENZYMES Total CK 224 12 - 191 09/27/2013 [facility] CARDIAC ENZYMES CK MB Index 0.4 0.0 - 2.5 09/27/2013 [facility] CARDIAC ENZYMES CK MB 1.0 0.5 - 3.6 09/27/2013 [facility] CARDIAC ENZYMES Troponin-I <0.02 0.00 - 0.40 09/27/2013 [facility] CARDIAC ENZYMES Total CK 257 12 - 191 09/27/2013 [facility] ENDOCRINOLOGY Cortisol 11.2 3.0 - 23.0 09/27/2013 <sup>3</sup>Interpretive Data: CORD BLOOD: 5 - 17 ug/dL

[...] 23.0 ug/dL
4PM 3.0 - 16.0 ug/dL [facility] BACTERIAL - SEROLOGY MRSA by PCR Negative 6 (09/27/13 9:00 AM) 09/27/2013 <sup>6</sup>Interpretive Data: Interpretive Data: The [employer] MRSA [...] by the Molecular Diagnostic Laboratory within the [facility]. The Molecular Diagnostic Laboratory is authorized under the Clinical Laboratory Improvement Amendment of 1988 (CLIA-88) to perform high complexity testing. [place] CARDIAC ENZYMES CK MB Index 0.5 0.0 - 2.5 09/27/2013 [facility] CARDIAC ENZYMES Troponin-I <0.02 0.00 - 0.40 09/27/2013 [facility] CARDIAC ENZYMES Total CK 273 12 - 191 09/27/2013 [facility] CARDIAC ENZYMES CK MB 1.3 0.5 - 3.6 09/27/2013 [place] CHEM PANEL Lipase Lvl 155 73 - 393 09/27/2013 [place] CHEM PANEL eGFR 87 09/27/2013 <sup>1</sup>Result Comment: The eGFR is calculated using the CKD-EPI formula. In most young, healthy individuals the eGFR will be >90 mL/min/1.73m2. The eGFR declines with age. An eGFR of 60-89 may be normal in some populations, particularly the elderly, for whom the CKD-EPI formula has not been extensively validated. Use of the eGFR is not recommended in the following populations:& lt;br/>
Individuals with unstable creatinine concentrations, including patients [...] should be multiplied by the estimated BMI. [place] CHEM PANEL Creatinine Lvl 1.3 0.5 - 1.4 09/27/2013 [place] CHEM PANEL Glucose Lvl 81 70 - 99 09/27/2013 <sup>2</sup>Interpretive Data: Adult reference range values reflect the clinical guidelines
of the [place] [employer]. [place] CHEM PANEL BUN 16 7 - 22 09/27/2013 [place] CHEM PANEL B/C Ratio 12 6 - 25 09/27/2013 [place] CHEM PANEL Globulin 3.8 2.0 - 4.0 09/27/2013 [place] CHEM PANEL CO2 29 24 - 32 09/27/2013 [place] CHEM PANEL Calcium Lvl 8.9 8.5 - 10.5 09/27/2013 [place] CHEM PANEL Total Protein 7.9 6.4 - 8.4 09/27/2013 [place] CHEM PANEL Potassium Lvl 3.6 3.5 - 5.1 09/27/2013 [place] CHEM PANEL Sodium Lvl 139 135 - 145 09/27/2013 [place] CHEM PANEL Chloride Lvl 102 95 - 109 09/27/2013 [place] CHEM PANEL Bili Total 0.7 0.2 - 1.3 09/27/2013 [place] CHEM PANEL Alk Phos 54 39 - 136 09/27/2013 [place] CHEM PANEL AGAP 11.6 10.0 - 20.0 09/27/2013 [place] CHEM PANEL A/G Ratio 1.1 0.7 - 1.6 09/27/2013 [place] CHEM PANEL ALT 29 0 - 65 09/27/2013 [place] CHEM PANEL Albumin Lvl 4.1 3.5 - 5.0 09/27/2013 [place] CHEM PANEL AST 20 0 - 37 09/27/2013 [place] DRUG SCREEN U Cannab Scr Negative *NA* (09/26/13 11:30 PM) Negative 09/27/2013 [place] DRUG SCREEN U Phencyc Scr Negative *NA* (09/26/13 11:30 PM) Negative 09/27/2013 [place] DRUG SCREEN U Cocaine Scr Negative *NA* (09/26/13 11:30 PM) Negative 09/27/2013 [place] DRUG SCREEN U Opiate Scr Negative *NA* (09/26/13 11:30 PM) Negative 09/27/2013 [place] DRUG SCREEN UDS Note See Note 3 *NA* (09/26/13 11:30 PM) 09/27/2013 <sup>3</sup>Interpretive Data: Drugs reported as positive have not [...]
Methadone 300 ng/mL
Urine alcohol 20 mg/dL [place] DRUG SCREEN U Amph Scr Negative *NA* (09/26/13 11:30 PM) Negative 09/27/2013 [place] DRUG SCREEN U Benzodia Scr Negative *NA* (09/26/13 11:30 PM) Negative 09/27/2013 [place] DRUG SCREEN U [place] Scr Negative *NA* (09/26/13 11:30 PM) Negative 09/27/2013 [place] HEMATOLOGY Monocytes 9.4 2.0 - 12.0 09/27/2013 [place] HEMATOLOGY Segs 56.7 45.0 - 75.0 09/27/2013 [place] HEMATOLOGY Lymphocytes 29.6 20.0 - 40.0 09/27/2013 [place] HEMATOLOGY Eosinophils # 0.2 0.0 - 0.5 09/27/2013 [place] HEMATOLOGY Lymphocytes # 1.7 1.0 - 5.5 09/27/2013 [place] HEMATOLOGY Monocytes # 0.5 0.0 - 0.8 09/27/2013 [place] HEMATOLOGY Eosinophils 4.0 0.0 - 4.0 09/27/2013 [place] HEMATOLOGY Basophils 0.3 0.0 - 1.0 09/27/2013 [place] HEMATOLOGY Segs-Bands # 3.3 1.5 - 8.1 09/27/2013 [place] HEMATOLOGY Basophils # 0.0 0.0 - 0.2 09/27/2013 [place] HEMATOLOGY MPV 8.3 7.4 - 10.4 09/27/2013 [place] HEMATOLOGY MCV 82.9 80.0 - 94.0 09/27/2013 [place] HEMATOLOGY MCH 27.5 27.0 - 31.0 09/27/2013 [place] HEMATOLOGY RBC 5.50 4.70 - 6.10 09/27/2013 [place] HEMATOLOGY Hgb 15.1 14.0 - 18.0 09/27/2013 [place] HEMATOLOGY Hct 45.6 42.0 - 54.0 09/27/2013 [place] HEMATOLOGY Platelet 281 133 - 450 09/27/2013 [place] HEMATOLOGY MCHC 33.2 32.0 - 36.0 09/27/2013 [place] HEMATOLOGY RDW 12.5 11.5 - 14.5 09/27/2013 [place] HEMATOLOGY WBC 5.8 3.7 - 10.4 09/27/2013 [place] URINE AND STOOL UA Urobilinogen 0.2 0.1 - 1.0 09/27/2013 [place] URINE AND STOOL UA Blood Trace *ABN* (09/26/13 11:30 PM) Negative 09/27/2013 [place] URINE AND STOOL UA Color Yellow *NA* (09/26/13 11:30 PM) Yellow 09/27/2013 [place] URINE AND STOOL UA RBC 0-2 /HPF 0 - 2 09/27/2013 [place] URINE AND STOOL UA Glucose Negative (09/26/13 11:30 PM) Negative 09/27/2013 [place] [facility]INE AND STOOL UA Bili Negative *NA* (09/26/13 11:30 PM) Negative 09/27/2013 [place] [facility]INE AND STOOL UA Ketones Negative *NA* (09/26/13 11:30 PM) Negative 09/27/2013 [place] [facility]INE AND STOOL UA Leuk Est Negative (09/26/13 11:30 PM) Negative 09/27/2013 [place] URINE AND STOOL UA Nitrite Negative (09/26/13 11:30 PM) Negative 09/27/2013 [place] [facility]INE AND STOOL UA WBC 0-2 /HPF None Seen /HPF 09/27/2013 [place] URINE AND STOOL UA Sq Epi Occasional /LPF Few /LPF 09/27/2013 [place] URINE AND STOOL UA Mucus Few /LPF None Seen /LPF 09/27/2013 [place] URINE AND STOOL UA Bacteria Few /HPF None Seen /HPF 09/27/2013 [place] URINE AND STOOL UA Spec Grav >=1.030 *ABN* (09/26/13 11:30 PM) <=1.030 09/27/2013 [place] URINE AND STOOL UA Turbidity Clear (09/26/13 11:30 PM) Clear 09/27/2013 [place] URINE AND STOOL UA Protein Negative (09/26/13 11:30 PM) Negative 09/27/2013 [place] URINE AND STOOL UA pH 6.0 5.0 - 8.0 09/27/2013 [place] CHEMISTRY CK MB Index 0.5 0.0 - 2.5 09/09/2011 Normal [place] CHEMISTRY Troponin-I <0.02 0.00 - 0.40 09/09/2011 Normal [place] CHEMISTRY Potassium Lvl 3.9 3.5 - 5.1 09/09/2011 Normal [place] CHEMISTRY Total Protein 8.3 6.4 - 8.4 09/09/2011 Normal [place] CHEMISTRY Chloride Lvl 105 95 - 109 09/09/2011 Normal [place] CHEMISTRY Calcium Lvl 9.0 8.5 - 10.5 09/09/2011 Normal [place] CHEMISTRY CO2 31 24 - 32 09/09/2011 Normal [place] CHEMISTRY Glucose Lvl 54 70 - 99 09/09/2011 LOW <sup>1</sup>Interpretive Data: Adult reference range values reflect the clinical guidelines of the [place] [employer]. [place] CHEMISTRY BUN 12 7 - 22 09/09/2011 Normal [place] CHEMISTRY Creatinine Lvl 1.0 0.5 - 1.4 09/09/2011 Normal [place] CHEMISTRY Bili Total 0.6 0.2 - 1.3 09/09/2011 Normal [place] CHEMISTRY Alk Phos 47 39 - 136 09/09/2011 Normal [place] CHEMISTRY ALT 26 0 - 65 09/09/2011 Normal [place] CHEMISTRY Albumin Lvl 4.5 3.5 - 5.0 09/09/2011 Normal [place] CHEMISTRY Globulin 3.8 2.0 - 4.0 09/09/2011 Normal [place] CHEMISTRY B/C Ratio 12 6 - 25 09/09/2011 Normal [place] CHEMISTRY A/G Ratio 1.2 0.7 - 1.6 09/09/2011 Normal [place] CHEMISTRY AGAP 7.9 10.0 - 20.0 09/09/2011 LOW [place] CHEMISTRY AST 17 0 - 37 09/09/2011 Normal [place] CHEMISTRY Sodium Lvl 140 135 - 145 09/09/2011 Normal [facility] CHEMISTRY Total CK 323 12 - 191 09/09/2011 HI [place] CHEMISTRY CK MB 1.6 0.5 - 3.6 09/09/2011 [facility] Lymphocytes # 1.5 1.0 - 5.5 09/09/2011 [facility] Basophils 0.5 0.0 - 1.0 09/09/2011 Normal [facility] HEMATOLOGY Segs-Bands # 2.8 1.5 - 8.1 09/09/2011 Normal [facility] HEMATOLOGY Basophils # 0.0 0.0 - 0.2 09/09/2011 Normal [facility] HEMATOLOGY Monocytes # 0.2 0.0 - 0.8 09/09/2011 [facility] Eosinophils # 0.3 0.0 - 0.5 09/09/2011 Normal [facility] HEMATOLOGY Lymphocytes 31.2 20.0 - 40.0 09/09/2011 [facility] Eosinophils 6.4 0.0 - 4.0 09/09/2011 HI [place] HEMATOLOGY Segs 57.2 45.0 - 75.0 09/09/2011 Normal [facility] HEMATOLOGY Monocytes 4.7 2.0 - 12.0 09/09/2011 Normal [facility] HEMATOLOGY D-Dimer 0.24 09/09/2011 NA <sup>3</sup>Interpretive Data: In DIC, quantitative D-Dimer is generally greater than 0.66 ug/mL FEU. Values of quantitative D-Dimer less than 0.40 ug/mL FEU have been reported to be associated with a low probability of deep vein thrombosis/pulmonary embolism. This test alone should not be used to rule out DVT/PE. [facility] HEMATOLOGY INR 1.00 0.85 - 1.17 09/09/2011 Normal <sup>2</sup>Interpretive Data: RECOMMENDED RANGES FOR PROTIME INR: 2.0-3.0 for most medical and surgical thromboembolic states. 2.5-3.5 for artificial heart valves and recurrent embolism. INR SHOULD BE USED ONLY FOR PATIENTS ON STABLE ANTICOAGULANT THERAPY. [facility] HEMATOLOGY PT 13.2 12.0 - 14.7 09/09/2011 Normal [facility] [place] HEMATOLOGY PTT 32.7 22.9 - 35.8 09/09/2011 Normal <sup>4</sup>Interpretive Data: Heparin Therapeutic Range: 57 - 92 Seconds [place] HEMATOLOGY MCH 27.5 27.0 - 31.0 09/09/2011 [facility] MCHC 33.2 32.0 - 36.0 09/09/2011 Normal [place] HEMATOLOGY RDW 12.5 11.5 - 14.5 09/09/2011 [facility] MCV 83.0 80.0 - 94.0 09/09/2011 [facility] Platelet 328 133 - 450 09/09/2011 [facility] MPV 7.9 7.4 - 10.4 09/09/2011 [facility] Hct 43.4 42.0 - 54.0 09/09/2011 Normal [facility] HEMATOLOGY Hgb 14.4 14.0 - 18.0 09/09/2011 Normal [place] HEMATOLOGY WBC 4.9 3.7 - 10.4 09/09/2011 Normal [facility] HEMATOLOGY RBC 5.23 4.70 - 6.10 09/09/2011 Normal [facility] CHEMISTRY HDL 44.0 >>=35 03/17/2011 Normal [facility] CHEMISTRY Chol 139.0 120 - 200 03/17/2011 Normal [facility] CHEMISTRY LDL 84.0 0 - 129 03/17/2011 Normal [facility] CHEMISTRY CHD Risk 3.16 4.00 - 7.30 03/17/2011 LOW [facility] CHEMISTRY Trig 55.0 0 - 200 03/17/2011 Normal [facility] CHEMISTRY CK MB Index 0.8 0.0 - 2.5 03/17/2011 Normal [facility] CHEMISTRY Troponin-I <0.02 0.00 - 0.40 03/17/2011 Normal [facility] CHEMISTRY Total CK 264.0 12 - 191 03/17/2011 [place] [facility] CHEMISTRY CK MB 2.0 0.5 - 3.6 03/17/2011 Normal [facility] CHEMISTRY LDL 98.0 0 - 129 03/17/2011 Normal [facility] CHEMISTRY HDL 44.0 >>=35 03/17/2011 Normal [facility] CHEMISTRY CHD Risk 3.5 4.00 - 7.30 03/17/2011 LOW [facility] CHEMISTRY Chol 154.0 120 - 200 03/17/2011 Normal [facility] CHEMISTRY Trig 60.0 0 - 200 03/17/2011 Normal [facility] CHEMISTRY T4 Free 0.83 0.76 - 1.46 03/17/2011 Normal [facility] CHEMISTRY T3 Free 3.7 2.18 - 3.98 03/17/2011 Normal [facility] CHEMISTRY TSH 1.56 0.360 - 3.740 03/17/2011 Normal [facility] CHEMISTRY CK MB Index 0.6 0.0 - 2.5 03/17/2011 Normal [facility] CHEMISTRY Troponin-I <0.02 0.00 - 0.40 03/17/2011 Normal [facility] CHEMISTRY CK MB 1.9 0.5 - 3.6 03/17/2011 Normal [facility] CHEMISTRY Total CK 305.0 12 - 191 03/17/2011 HI [facility] CHEMISTRY U [place] Scr Negative *NA* (03/17/2011 01:50:00) ?? >Negative 03/17/2011 NA [facility] CHEMISTRY U [place] Scr Negative *NA* (03/17/2011 01:50:00) ?? >Negative 03/17/2011 NA [facility] CHEMISTRY U Cocaine Scr Negative *NA* (03/17/2011 01:50:00) ?? >Negative 03/17/2011 NA [facility] CHEMISTRY U Amph Scr Negative *NA* (03/17/2011 01:50:00) ?? >Negative 03/17/2011 NA [facility] CHEMISTRY UDS Note See Note 2 *NA* (03/17/2011 01:50:00) ?? 03/17/2011 NA <sup>2</sup>Interpretive Data: Drugs reported as positive have not [...] Methadone 300 ng/mL Urine alcohol 20 mg/dL [facility] CHEMISTRY U Cannab Scr Negative *NA* (03/17/2011 01:50:00) ?? >Negative 03/17/2011 NA [facility] CHEMISTRY U Phencyc Scr Negative *NA* (03/17/2011 01:50:00) ?? >Negative 03/17/2011 NA [facility] CHEMISTRY U Opiate Scr Negative *NA* (03/17/2011 01:50:00) ?? >Negative 03/17/2011 [facility] URINALYSIS UA Mucus Few /LPF *NA* (03/17/2011 01:50:00) ?? >None Seen 03/17/2011 [facility] URINALYSIS UA Sq Epi None Seen 03/17/2011 [facility] URINALYSIS UA WBC 1.0 0 - 5 03/17/2011 Normal [facility] URINALYSIS UA Leuk Est Negative (03/17/2011 01:50:00) ?? >Negative 03/17/2011 Normal [facility] URINALYSIS UA RBC <1.0 0 - 2 03/17/2011 Normal [facility] URINALYSIS UA Nitrite Negative (03/17/2011 01:50:00) ?? >Negative 03/17/2011 Normal [facility] URINALYSIS UA Glucose Negative mg/dL *NA* (03/17/2011 01:50:00) ?? >Negative 03/17/2011 NA [facility] URINALYSIS UA Bili Negative *NA* (03/17/2011 01:50:00) ?? >Negative 03/17/2011 NA [facility] URINALYSIS UA Blood Negative (03/17/2011 01:50:00) ?? >Negative 03/17/2011 Normal [facility] URINALYSIS UA Turbidity Clear (03/17/2011 01:50:00) ?? >Clear 03/17/2011 Normal [facility] URINALYSIS UA Urobilinogen 2.0 0.1 - 1.0 03/17/2011 HI [facility] URINALYSIS UA Spec Grav 1.023 <<=1.030 03/17/2011 Normal [facility] URINALYSIS UA pH 6.5 5.0 - 8.0 03/17/2011 Normal [facility] URINALYSIS UA Ketones Negative mg/dL *NA* (03/17/2011 01:50:00) ?? >Negative 03/17/2011 NA [facility] URINALYSIS UA Color Yellow *NA* (03/17/2011 01:50:00) ?? >Yellow 03/17/2011 NA [facility] URINALYSIS UA Protein Negative mg/dL (03/17/2011 01:50:00) ?? >Negative 03/17/2011 Normal [facility] URINALYSIS UA Bacteria None Seen (03/17/2011 01:50:00) ?? >None Seen 03/17/2011 Normal [facility] URINALYSIS Micro? Performed (03/17/2011 01:50:00) ?? 03/17/2011 Normal [facility] CHEMISTRY Total CK 368.0 12 - 191 03/17/2011 HI [facility] CHEMISTRY Troponin-I <0.02 0.00 - 0.40 03/17/2011 Normal [facility] CHEMISTRY CK MB 2.4 0.5 - 3.6 03/17/2011 Normal [facility] CHEMISTRY Creatinine Lvl 1.2 0.5 - 1.4 03/17/2011 Normal [facility] CHEMISTRY BUN 13.0 7 - 22 03/17/2011 Normal [facility] CHEMISTRY Glucose Lvl 99.0 03/17/2011 NA <sup>1</sup>Interpretive Data: Reference Ranges : 0 - 7 days : 41 - 90 mg/dL 7 days - 150 yrs : 70 - 99 mg/dL (fasting), based on the clinical recommendations of the [place] [employer]. [facility] CHEMISTRY CO2 28.0 24 - 32 03/17/2011 Normal [facility] CHEMISTRY Chloride Lvl 103.0 95 - 109 03/17/2011 Normal [facility] CHEMISTRY Potassium Lvl 3.8 3.5 - 5.1 03/17/2011 Normal [facility] CHEMISTRY Sodium Lvl 139.0 135 - 145 03/17/2011 Normal [facility] CHEMISTRY AGAP 11.8 10.0 - 20.0 03/17/2011 Normal [facility] CHEMISTRY Calcium Lvl 9.0 8.5 - 10.5 03/17/2011 Normal [facility] CHEMISTRY Magnesium Lvl 1.9 1.8 - 2.4 03/17/2011 Normal [facility] CHEMISTRY Phosphorus 2.8 2.5 - 4.5 03/17/2011 Normal [facility] CHEMISTRY CK MB Index 0.7 0.0 - 2.5 03/17/2011 Normal [facility] HEMATOLOGY RDW 12.3 11.5 - 14.5 03/17/2011 Normal [facility] HEMATOLOGY MPV 8.4 7.4 - 10.4 03/17/2011 Normal [facility] HEMATOLOGY Platelet 318.0 133 - 450 03/17/2011 Normal [facility] HEMATOLOGY Hgb 14.0 14.0 - 18.0 03/17/2011 Normal [facility] HEMATOLOGY MCHC 32.2 32.0 - 36.0 03/17/2011 Normal [facility] HEMATOLOGY MCH 27.3 27.0 - 31.0 03/17/2011 Normal [facility] HEMATOLOGY MCV 84.5 80.0 - 94.0 03/17/2011 Normal [facility] HEMATOLOGY Hct 43.4 42.0 - 54.0 03/17/2011 Normal [facility] HEMATOLOGY WBC 7.2 3.7 - 10.4 03/17/2011 Normal [facility] HEMATOLOGY RBC 5.13 4.70 - 6.10 03/17/2011 Normal [facility] HEMATOLOGY PTT 31.3 22.9 - 35.8 03/17/2011 Normal <sup>4</sup>Interpretive Data: Heparin Therapeutic Range: 57 - 92 Seconds [facility] HEMATOLOGY PT 12.9 12.0 - 14.7 03/17/2011 Normal [facility] HEMATOLOGY INR 0.97 0.85 - 1.17 03/17/2011 Normal <sup>3</sup>Interpretive Data: RECOMMENDED RANGES FOR PROTIME INR: 2.0-3.0 for most medical and surgical thromboembolic states. 2.5-3.5 for artificial heart valves and recurrent embolism. INR SHOULD BE USED ONLY FOR PATIENTS ON STABLE ANTICOAGULANT THERAPY. [facility] HEMATOLOGY Segs-Bands # 4.0 1.5 - 8.1 03/17/2011 Normal [facility] HEMATOLOGY Lymphocytes # 2.5 1.0 - 5.5 03/17/2011 Normal [facility] HEMATOLOGY Eosinophils # 0.3 0.0 - 0.5 03/17/2011 Normal [facility] HEMATOLOGY Monocytes # 0.4 0.0 - 0.8 03/17/2011 Normal [facility] HEMATOLOGY Basophils # 0.1 0.0 - 0.2 03/17/2011 Normal [facility] HEMATOLOGY Lymphocytes 34.3 20.0 - 40.0 03/17/2011 Normal [facility] HEMATOLOGY Eosinophils 4.5 0.0 - 4.0 03/17/2011 HI [facility] HEMATOLOGY Segs 54.8 45.0 - 75.0 03/17/2011 Normal [facility] HEMATOLOGY Monocytes 5.6 2.0 - 12.0 03/17/2011 Normal [facility] HEMATOLOGY Basophils 0.8 0.0 - 1.0 03/17/2011 Normal [facility] Pathology Reports No Data Provided for This Section Diagnostic Reports Report Value Date Source Chest 1view DX Chest 1view DX 09/14/2017 3:07 PM CDT Ordering Physician: Kimo Johnson MD CLINICAL HISTORY: - cough, c/o right sided lower back pain (flank) with cough and dizziness x3 days; denies n/v unknown if have fever at ho but states he 'sweats a lot lately'; pmh htn compliant with medication but has not taken it today because 'I haven't been feeling good'; TECHNIQUE: A single AP view of the chest was obtained. COMPARISON: 09/26/2013. FINDINGS: No focal consolidation or pleural effusion is seen. No radiographically detectable pneumothorax is present. Significant enlargement of the cardiac silhouette is noted. No acute osseous abnormality is evident. IMPRESSION: 1. Significant enlargement of the cardiac shadow, indicating cardiomegaly or pericardial effusion. SL: [id number] 09/14/2017 [facility] ED Abdomen/Pelvis IV contrast only CT CT [...] branches. Normal abdomen and pelvis CT. 04/09/2014 [facility] Chest CTA CHEST CTA History: 29-year-old with [...] Unremarkable CT examination of the chest. 04/09/2014 [facility] Renal vessels Doppler US Renal vessels Doppler [...] of renal artery stenosis. SL: 14 09/27/2013 [facility] Brain wo contrast CT Clinical History : [...] infarction. Impressions: No acute intracranial process. 09/27/2013 [facility] Abdomen/Pelvis w IV contrast CT CLINICAL HISTORY: [...] caliber. IMPRESSIONS: No acute intra-abdominal process. 09/27/2013 [facility] Chest 2 views Clinical History : See [...] acute cardiopulmonary disease (stable appearing chest). 09/26/2013 [facility] Consultation Notes No Data Provided for This Section Discharge Summaries No Data Provided for This Section History and Physicals No Data Provided for This Section Vital Signs Vital Sign Value Date Comments Source Respitory Rate 20 09/14/2017 [facility] Systolic (mm Hg) 179 09/14/2017 [facility] Diastolic (mm Hg) 115 09/14/2017 [facility] Heart Rate 71 09/14/2017 [facility] Temperature Oral (F) 98.6 F 09/14/2017 [facility] Respitory Rate 09/14/2017 [facility] Systolic (mm Hg) 179 09/14/2017 [facility] Diastolic (mm Hg) 115 09/14/2017 [facility] Systolic (mm Hg) 191 09/14/2017 [facility] Diastolic (mm Hg) 136 09/14/2017 [facility] Heart Rate 85 09/14/2017 [facility] Respitory Rate 22 09/14/2017 [facility] Temperature Oral (F) 98.1 F 09/14/2017 [facility] BMI Calculated 28.31 09/14/2017 [facility] Height 187.96 cm 09/14/2017 [facility] Weight 100 09/14/2017 [facility] Heart Rate 95 09/14/2017 [facility] Temperature Oral (F) 98.6 F 09/14/2017 [facility] Systolic (mm Hg) 210 09/14/2017 [facility] Diastolic (mm Hg) 122 09/14/2017 [facility] Respitory Rate 16 09/14/2017 [facility] Heart Rate 90 09/14/2017 [facility] Heart Rate 63 04/10/2014 [place] Temperature Oral (F) 98.4 F 04/10/2014 [place] Respitory Rate 16 04/10/2014 [place] Diastolic (mm Hg) 86 04/10/2014 [place] Systolic (mm Hg) 147 04/10/2014 [place] Systolic (mm Hg) 138 04/10/2014 [place] Heart Rate 85 04/10/2014 [place] Diastolic (mm Hg) 108 04/10/2014 [place] Temperature Oral (F) 98.4 F 04/10/2014 [place] Respitory Rate 18 04/10/2014 [place] Systolic (mm Hg) 140 04/10/2014 [place] Diastolic (mm Hg) 97 04/10/2014 [place] Temperature Oral (F) 98.2 F 04/10/2014 [place] Heart Rate 86 04/10/2014 [place] Respitory Rate 18 04/10/2014 [place] Height 187.96 cm 04/09/2014 [place] Weight 91.818 04/09/2014 [place] BMI Calculated 25.99 04/09/2014 [place] Weight 91.818 04/09/2014 [place] BMI Calculated 25.99 04/09/2014 [place] Height 187.96 cm 04/09/2014 [place] Systolic (mm Hg) 155 09/28/2013 [facility] Respitory Rate 28 09/28/2013 [facility] Diastolic (mm Hg) 83 09/28/2013 [facility] Systolic (mm Hg) 153 09/28/2013 [facility] Diastolic (mm Hg) 81 09/28/2013 [facility] Respitory Rate 15 09/28/2013 [facility] Systolic (mm Hg) 166 09/28/2013 [facility] Diastolic (mm Hg) 75 09/28/2013 [facility] Respitory Rate 18 09/28/2013 [facility] Weight 81.818 09/27/2013 [facility] BMI Calculated 23.16 09/27/2013 [facility] Height 187.96 cm 09/27/2013 [facility] Heart Rate 88 09/27/2013 [place] Respitory Rate 17 09/27/2013 [place] Temperature Oral (F) 97.8 F 09/27/2013 [place] Diastolic (mm Hg) 104 09/27/2013 [place] Systolic (mm Hg) 150 09/27/2013 [place] Systolic (mm Hg) 173 09/27/2013 [place] Heart Rate 82 09/27/2013 [place] Diastolic (mm Hg) 106 09/27/2013 [place] Diastolic (mm Hg) 97 09/27/2013 [place] Systolic (mm Hg) 161 09/27/2013 [place] Heart Rate 80 09/27/2013 [place] Temperature Oral (F) 98.2 F 09/27/2013 [place] Respitory Rate 17 09/27/2013 [place] Temperature Oral (F) 97.3 F 09/27/2013 [place] Respitory Rate 18 09/27/2013 [place] BMI Calculated 23.16 09/27/2013 [place] Height 187.96 cm 09/27/2013 [place] Weight 81.818 09/27/2013 [place] Weight 85.909 09/09/2011 [place] Height 187.96 cm [facility] 80.0 03/17/2011 [facility] Respitory Rate 18.0 03/17/2011 [facility] Temperature Oral (F) 97.6 F 03/17/2011 [facility] Diastolic (mm Hg) 101.0 03/17/2011 [facility] Systolic (mm Hg) 153.0 03/17/2011 [facility] Respitory Rate 18.0 03/17/2011 [facility] Systolic (mm Hg) 144.0 03/17/2011 [facility] Temperature Oral (F) 98.8 F 03/17/2011 [facility] Diastolic (mm Hg) 82.0 03/17/2011 [facility] Heart Rate 63.0 03/17/2011 [facility] Temperature Oral (F) 97.5 F 03/17/2011 [facility] Heart Rate 55.0 03/17/2011 [facility] Systolic (mm Hg) 149.0 03/17/2011 [facility] Respitory Rate 18.0 03/17/2011 [facility] Diastolic (mm Hg) 69.0 03/17/2011 [facility] Height 187.96 cm 03/17/2011 [facility] Height 185.42 cm 03/17/2011 [facility] Weight 86.364 03/17/2011 [facility] Encounters Location Location Details Encounter Type Encounter Number Reason For Visit Attending Provider ADM Date DC Date Status Source [facility] OU [id number] JESSICA ELLIOTT 03/17/2011 03/17/2011 Discharged [facility] [place] Emergency [id number] CHEST PAIN/BLOOD IN STOOL CAMACHO AQUINO 09/09/2011 09/09/2011 Active [facility] [id number] Marco Cantu 09/27/2013 09/27/2013 [facility] Inpatient [id number] Kalpna Pilar 09/27/2013 09/28/2013 [facility] OBS Observation Patient [id number] Mustaq Jennifer 04/09/2014 04/10/2014 [facility] Emergency [id number] Shay Chukwuma 09/14/2017 09/14/2017 [facility] ([facility]) Emergency [id number] Kimo Alex 09/14/2017 09/14/2017 [facility] OD [id number] 401.0 - MALIGNANT HYPER FUENTES THIAGARAJAN Cancel [facility] Procedures No Data Provided for This Section Assessment and Plan No Data Provided for This Section Plan of Care No Data Provided for This Section Social History Social History Date Source Social History TypeResponse Alcohol Current, Frequency: 3-5 times per week. Smoking Status Never smoker; Exposure to Tobacco Smoke None; Cigarette Smoking Last 365 Days No; Reg Smoking Cessation Counseling No entered on: 09/14/17 04/09/2014 [facility] Social [facility] TypeResponse Alcohol Use: Current, Frequency: 3-5 times per week Smoking Status Never smoker, Exposure to Tobacco Smoke None, Cigarette Smoking Last 365 Days No, Reg Smoking Cessation Counseling No 04/09/2014 [facility] Social History TypeResponse Alcohol Use: Current, Frequency: 1-2 times per week Smoking Status Never smoker, Exposure to Tobacco Smoke None, Cigarette Smoking Last 365 Days No, Reg Smoking Cessation Counseling No 09/27/2013 [facility] Family History No Data Provided for This Section Advance Directives No Data Provided for This Section Functional Status No Data Provided for This Section
[2019-01-23] MEDS ORDERED: HYDRALAZINE HCL 20 MG/ML VIAL IV STA (12:05)
[2019-01-23] MEDS ORDERED: HYDROMORPHONE 1MG/1ML INJ IV STA (12:05)
[2019-01-23] MEDS ORDERED: DICYCLOMINE HCL 20 MG/2 ML VIAL IM ONE ×2 (12:15→12:46)
[2019-01-23] MEDS ORDERED: HYDRALAZINE HCL 20 MG/ML VIAL ONE (12:37)
[2019-01-23] MEDS ORDERED: KETOROLAC TROMETHAMINE 30 MG/ML VIAL ONE (12:37)
--- NOTE | 2019-01-23 12:42 | Diagnostic Imaging Report ---
EXAMINATION: CT of the abdomen and pelvis without contrast. TECHNIQUE: Helical CT images of the abdomen and pelvis were performed from the lung bases to the lesser trochanters. No intravenous contrast was given per renal stone protocol. Coronal and sagittal reformatted images were obtained.Dose modulation, iterative reconstruction, and/or weight based adjustment of the mA/kV was utilized to reduce the radiation dose to as low as reasonably achievable. COMPARISON: None. CLINICAL HISTORY:Abdominal pain DISCUSSION: ABSENCE OF INTRAVENOUS CONTRAST DECREASES SENSITIVITY FOR DETECTION OF FOCAL LESIONS AND VASCULAR PATHOLOGY. ABDOMEN/PELVIS: LOWER THORAX: Unremarkable. HEPATOBILIARY:No focal hepatic lesions. No biliary ductal dilation. The gallbladder is normal. SPLEEN: No splenomegaly. PANCREAS: No focal masses or ductal dilatation. ADRENALS: No adrenal nodules. KIDNEYS/URETERS: No hydronephrosis, stones, or solid mass lesions. PELVIC ORGANS/BLADDER: The bladder is normal. PERITONEUM/RETROPERITONEUM: No free air or fluid. LYMPH NODES: No intra-abdominal,retroperitoneal, pelvic or inguinal lymphadenopathy. VESSELS: Pelvic phleboliths. GI TRACT: No distention or wall thickening. Appendix is normal. BONES AND SOFT TISSUES: No bony destructive lesions. No soft tissue abnormalities. IMPRESSION: No acute noncontrast CT finding. Signed by: Dr. Tristen Hector M.D. on 01/23/2019 12:39 PM
[2019-01-23] MEDS ORDERED: KETOROLAC TROMETHAMINE 30 MG/ML VIAL IV STA (12:50)
[2019-01-23 13:21] VITALS: BP 179/99
== END 2019-01-23 13:30 | disposition home or self-care (01) ==
LOC: FSED 11:40
DX: R10.33 Periumbilical pain (principal); K21.9 Gastro-esophageal reflux disease without esophagitis; I10 Essential (primary) hypertension
CPT/HCPCS: 74176; 80048; 80076; 81003; 85025; 99284; J0360; J0500; J1170; J1885

== ENCOUNTER 2019-04-15 19:45 | Emergency (ER) | payer OTHER ==
[~2019-04-15] VITALS: Ht 188 cm; Wt 95.3 kg
[2019-04-15] MEDS ORDERED: CYCLOBENZAPRINE HCL 10 MG TAB PO ONE (20:45)
[2019-04-15] MEDS ORDERED: KETOROLAC TROMETHAMINE 60 MG/2 ML VIAL IM ONE (20:45)
[2019-04-15] MEDS ORDERED: CYCLOBENZAPRINE HCL 10 MG TAB ONE (20:48)
[2019-04-15] MEDS ORDERED: KETOROLAC TROMETHAMINE 60 MG/2 ML VIAL ONE (20:48)
[2019-04-15] MEDS ORDERED: CLONIDINE HCL 0.1 MG TAB ONE (21:05)
[2019-04-15] MEDS ORDERED: CLONIDINE HCL 0.1 MG TAB PO ONE (21:15)
== END 2019-04-15 21:50 | disposition home or self-care (01) ==
LOC: FSED 19:45
DX: M54.42 Lumbago with sciatica, left side (principal); G89.29 Other chronic pain; X50.0XXA Overexertion from strenuous movement or load, initial encounter; Y92.008 Other place in unspecified non-institutional (private) residence as the place of occurrence of the external cause; I10 Essential (primary) hypertension
CPT/HCPCS: 99283; J1885